=== PATIENT | male | born 1940 | race Caucasian/White ===

== ENCOUNTER 2017-02-07 00:20 | Observation (INO) | payer MEDICARE ==
[2017-02-07] MEDS ORDERED: Sodium Chloride 0.9% 1000 ML 1,000 ML IV SCH (00:45)
[2017-02-07] MEDS ORDERED: Nitrostat 0.4 MG (ED) SL ONE (00:45)
--- NOTE | 2017-02-07 00:52 | ERPHSYRPT ---
- History of Present Illness Time Seen by Provider: 02/07/17 00:45 Historian: patient Exam Limitations: clinical condition Patient Subjective Stated Complaint: pt states he woke up with lt side chest pain. denies radiation, nausea, sob, dizziness Triage Nursing Assessment: pt alert and oriented, asnwers questions approp. skin pnk warm and dry. respirations nonlabored with lungs cta. pt c/o pain in lt chest 11/27 began at 2330 while sleeping. heart rate 72, sinus rhythm on monitor. Physician History: PATIENT WITH HISTORY OF CORONARY ARTERY DISEASE, PREVIOUS CVA COMPLAINS OF LOWER STERNAL CHEST PAIN AFTER EATING AT 11PM, DENIES ASSOCIATED RADIATION TO NECK, JAW, ARMS OR BACK. DENIES FEVER, CHILLS, DYSPNEA OR COUGH. Timing/Duration: today Activities at Onset: none Quality: sharpness, stabbing Location: substernal Chest Pain Radiation: no radiation Severity of Pain-Max: moderate Severity of Pain-Current: moderate Modifying Factors: Improves With: nothing Associated Symptoms: denies symptoms Prior Chest Pain/Cardiac Workup: angina, heart attack Nitro Today/Relief: 0.4 mg x 2, provided by ED Aspirin Treatment Today: no aspirin today Allergies/Adverse Reactions: ether Allergy (Verified 02/07/17 00:41) BEE STING Adverse Reaction (Mild, Uncoded 02/07/17 00:41) Home Medications: Furosemide 40 mg [Lasix 40 MG] 40 mg PO DAILY 11/07/12 [History] Potassium Chloride 10 Meq Tab* [Klor Con 10 MEQ] 10 meq PO DAILY 11/07/12 [ History] Nitroglycerin 0.4 mg Tablet [Nitrostat 0.4 MG Tablet] 0.4 mg SL UD PRN 09/02 [History] Aspirin 325 mg PO DAILY 01/16/15 [History] Carvedilol 6.25 mg [Coreg 6.25 MG] 18.75 mg PO BID 01/16/15 [History] Lisinopril 5 mg [Zestril 5 MG] 20 mg PO DAILY 01/16/15 [History] Gabapentin [Neurontin] 100 mg PO TID 01/17/15 [History] Magnesium Oxide 400 mg [Mag-Ox 400] 400 mg PO DAILY 01/22/15 [History] Alprazolam 0.25 mg [xanAX 0.25 MG] 0.25 mg PO HS 03/29/15 [History] Simvastatin [Zocor] 5 mg PO DAILY 03/29/15 [History] Warfarin Sodium 2.5 mg [Coumadin 2.5 MG] 2.5 mg PO UD 03/29/15 [History] Warfarin Sodium 5 mg [Coumadin 5 MG] 5 mg PO UD 03/29/15 [History] Cetirizine HCl [Zyrtec] 10 mg PO DAILY 02/07/17 [History] Glimepiride 4 mg [Amaryl 4 mg] 4 mg PO DAILY 02/07/17 [History] Tamsulosin HCl 0.4 mg [Flomax 0.4 MG] 0.4 mg PO DAILY 02/07/17 [History] Hx Tetanus, Diphtheria Vaccination/Date Given: Yes Hx Influenza Vaccination/Date Given: Yes Hx Pneumococcal Vaccination/Date Given: Yes (2yrs ago) Immunizations Up to Date: Yes - Review of Systems Constitutional: No Fever, No Chills Eyes: No Symptoms Ears, Nose, & Throat: No Symptoms Respiratory: No Symptoms, No Cough, No Dyspnea Cardiac: Chest Pain, No Edema, No Syncope Abdominal/Gastrointestinal: No Symptoms, No Abdominal Pain, No Nausea, No Vomiting, No Diarrhea Genitourinary Symptoms: No Symptoms, No Dysuria Musculoskeletal: No Symptoms, No Back Pain, No Neck Pain Skin: No Symptoms, No Rash Neurological: No Dizziness, No Focal Weakness, No Sensory Changes Psychological: No Symptoms Endocrine: No Symptoms All Other Systems: Reviewed and Negative - Past Medical History Pertinent Past Medical History: Yes Neurological History: Stroke ENT History: No Pertinent History Cardiac History: Arrhythmia, Coronary Artery Disease, Congestive Heart Failure, Myocardial Infarction ([place]), Hypertension Respiratory History: Sleep Apnea, Other Endocrine Medical History: Diabetes Type II Musculoskeletal History: Other GI Medical History: No Pertinent History History: Other Psycho-Social History: No Pertinent History Male Reproductive Disorders: No Pertinent History Other Medical History: kidney stones - Past Surgical History Past Surgical History: Yes Neuro Surgical History: No Pertinent History Cardiac: Cardiac Catheterization, Pacemaker, Internal Defibrillator Respiratory: Chest Surgery Gastrointestinal: No Pertinent History Genitourinary: Kidney Surgery Musculoskeletal: Orthopedic Surgery Male Surgical History: No Pertinent History Other Surgical History: 2 knee scopes right, T&A - Social History Smoking Status: Former smoker How long have you smoked: 20yrs Exposure to second hand smoke: No Drug Use: none Patient Lives Alone: No - Nursing Vital Signs Nursing Vital Signs: Initial Vital Signs Temperature 97.6 F Temperature Source Oral Pulse Rate [] 74 Pulse Rate 71 Respiratory Rate 18 Blood Pressure [] 127/72 Pain Intensity 5 - Physical Exam General Appearance: no apparent distress, alert Eye Exam: PERRL/EOMI, eyes nml inspection Ears, Nose, Throat Exam: normal ENT inspection, moist mucous membranes Neck Exam: normal inspection, non-tender, supple, full range of motion Respiratory Exam: normal breath sounds, lungs clear, No respiratory distress Cardiovascular Exam: regular rate/rhythm, normal heart sounds Gastrointestinal/Abdomen Exam: soft, normal bowel sounds, No tenderness, No mass Back Exam: normal inspection, No CVA tenderness, No vertebral tenderness Extremity Exam: normal inspection, normal range of motion Neurologic Exam: alert, oriented x 3, cooperative, normal mood/affect, sensation nml, No motor deficits Skin Exam: normal color, warm, dry SpO2 Interpretation: normal SpO2: 98 Oxygen Delivery: Room Air - Course EKG Interpreted by Me: RATE, Sinus Rhythm, 1st degree AV Block - Radiology Exams Chest X-ray Interpretation: Reviewed by me, Negative (LEFT HEMITHORAX PACEMAKER) Ordered Tests: Active Orders 24 hr Category Date Time Status Up With Assistance ROUTINE Activity 02/07/17 03:42 Ordered Accucheck ACHS Care 02/07/17 03:41 Ordered Admission/Status Order ROUTINE Care 02/07/17 03:41 Ordered Call Admit Doctor for Orders ROUTINE Care 02/07/17 03:41 Ordered [employer] Sharpshooter STAT Care 02/07/17 00:45 Active Code Status Order ROUTINE Care 02/07/17 03:41 Ordered EKG-ER Only STAT Care 02/07/17 00:45 Active IV Care Q6H Care 02/07/17 03:41 Ordered IV Insertion STAT Care 02/07/17 00:33 Active Implement Chest Pain Pathway ROUTINE Care 02/07/17 03:41 Ordered Oxygen-ED Only NASAL CANNULA 2 lpm Care 02/07/17 00:45 Active Jovi Hose, Apply ROUTINE Care 02/07/17 03:41 Ordered Telemetry ROUTINE Care 02/07/17 03:41 Ordered Vital Signs Q4H Care 02/07/17 03:41 Ordered Weight,Daily 0600 Care 02/07/17 03:41 Ordered 1800 Calorie ADA Diet 02/07/17 Breakfast Ordered CHEST 1 VIEW (PORTABLE) Stat Exams 02/07/17 00:45 Taken CBC W DIFF Stat Lab 02/07/17 01:00 Completed CMP Stat Lab 02/07/17 01:00 Completed LIPID PROFILE AM.LAB Lab 02/07/17 04:00 Ordered PROTIME WITH INR Stat Lab 02/07/17 01:00 Completed TROPONIN Q3H Lab 02/07/17 01:00 Completed TROPONIN Q3H Lab 02/07/17 03:45 Ordered TROPONIN Q3H Lab 02/07/17 06:45 Ordered TROPONIN Q3H Lab 02/07/17 09:45 Ordered TROPONIN Q3H Lab 02/07/17 12:45 Ordered EKG Q8HX2,QAMX3,PRN RT 02/07/17 03:41 Ordered Pulse Oximetry Q4H RT 02/07/17 03:41 Ordered Transfer Order Routine Transfer 02/07/17 03:41 Ordered Medication Summary Generic Name Dose Route Start Last Admin Trade Name Freq PRN Reason Stop Dose Admin Sodium Chloride 1,000 mls @ 50 mls/hr 02/07/17 00:45 02/07/17 01:03 Sodium Chloride 0.9% 1000 Ml IV 03/09/17 00:44 50 mls/hr .Q20H SCOTTY Administration Discontinued Medications Generic Name Dose Route Start Last Admin Trade Name Freq PRN Reason Stop Dose Admin Aspirin 324 mg 02/07/17 00:57 02/07/17 01:03 Baby Aspirin 81 Mg Chew PO 02/07/17 00:58 324 mg STAT ONE Administration Nitroglycerin 0.4 mg 02/07/17 00:45 02/07/17 01:03 Nitrostat 0.4 Mg (Ed) SL 02/07/17 00:46 0.4 mg STAT ONE Administration Nitroglycerin 1 gm 02/07/17 02:01 02/07/17 02:18 Nitro-Bid 2% Ud Packets TOP 02/07/17 02:02 Not Given STAT ONE Nitroglycerin Confirm 02/07/17 02:05 Nitro-Bid 2% Ud Packets Administered 02/07/17 02:06 Dose 1 gm .ROUTE .STK-MED ONE Lab/Rad Data: Laboratory Result Diagrams 02/07/17 01:00 02/07/17 01:00 Laboratory Results 02/07/17 02/07/17 02/07/17 Range/Units 01:00 01:00 01:00 WBC 9.0 (4.0-10.5) K/mm3 RBC 4.51 (4.1-5.6) M/mm3 Hgb 14.8 (12.5-18.0) gm/dl Hct 42.9 (42-50) % MCV 95.1 (78-100) fl MCH 32.8 H (26-32) pg MCHC 34.5 (32-36) g/dl RDW 13.3 (11.5-14.0) % Plt Count 169 (150-450) K/mm3 MPV 10.3 H (6-9.5) fl Gran % 51.2 (36.0-66.0) % Lymphocytes % 34.1 (24.0-44.0) % Monocytes % 9.4 (0.0-12.0) % Eosinophils % 5.0 (0.00-5.0) % Basophils % 0.3 (0.0-0.4) % Basophils # 0.03 (0-0.4) INR 1.69 (0.8-3.0) Sodium 137 (136-145) mEq/L Potassium 4.7 (3.5-5.1) mEq/L Chloride 100 (98-107) mEq/L Carbon Dioxide 26.5 (21-32) mEq/L Anion Gap 14.7 (5-15) MEQ/L BUN 30 H (9-20) mg/dL Creatinine 1.45 H (0.55-1.30) mg/dl Estimated GFR 51 ML/MIN Glucose 145 H (70-110) MG/DL Calcium 9.4 (8.5-10.1) mg/dL Total Bilirubin 0.60 (0.2-1.0) mg/dL AST 17 (15-37) U/L ALT 20 (12-78) U/L Alkaline Phosphatase 50 (46-116) U/L Troponin I (0.000-0.056) ng/ml Serum Total Protein 7.1 (6.4-8.2) gm/dL Albumin 3.7 (3.4-5.0) g/dL 02/07/17 Range/Units 01:00 WBC (4.0-10.5) K/mm3 RBC (4.1-5.6) M/mm3 Hgb (12.5-18.0) gm/dl Hct (42-50) % MCV (78-100) fl MCH (26-32) pg MCHC (32-36) g/dl RDW (11.5-14.0) % Plt Count (150-450) K/mm3 MPV (6-9.5) fl Gran % (36.0-66.0) % Lymphocytes % (24.0-44.0) % Monocytes % (0.0-12.0) % Eosinophils % (0.00-5.0) % Basophils % (0.0-0.4) % Basophils # (0-0.4) INR (0.8-3.0) Sodium (136-145) mEq/L Potassium (3.5-5.1) mEq/L Chloride (98-107) mEq/L Carbon Dioxide (21-32) mEq/L Anion Gap (5-15) MEQ/L BUN (9-20) mg/dL Creatinine (0.55-1.30) mg/dl Estimated GFR ML/MIN Glucose (70-110) MG/DL Calcium (8.5-10.1) mg/dL Total Bilirubin (0.2-1.0) mg/dL AST (15-37) U/L ALT (12-78) U/L Alkaline Phosphatase (46-116) U/L Troponin I 0.024 (0.000-0.056) ng/ml Serum Total Protein (6.4-8.2) gm/dL Albumin (3.4-5.0) g/dL - Progress Progress Note: 02/07/17 03:33 PATIENT RESOLVED AFTER NTG 0.4MG SL Discussed with DrStacia: Johnny (DISCUSSED WITH DR ASCENCIO AT 0330 FOR OBSERVATION) - Departure Time of Disposition: 03:40 Departure Disposition: Observation Clinical Impression: ACUTE CHEST PAIN Condition: Stable Critical Care Time: No Referrals: EVE HER MD [Primary Care Provider] -
[2017-02-07] MEDS ORDERED: BABY ASPIRIN 81 MG CHEW PO ONE (00:57)
[2017-02-07 01:25] LABS: BASOPHIL % 0.3 % (0.0-0.4); Granulocytes % 51.2 % (36.0-66.0); Lymphocytes % 34.1 % (24.0-44.0); Mean Cell Volume 95.1 fl (78-100); Mean Corpuscular Hemoglobin 32.8 pg (26-32); Mean Platelet Volume 10.3 fl (6-9.5); Monocytes % 9.4 % (0.0-12.0); Platelet Count 169 K/mm3 (150-450); Red Blood Count 4.51 M/mm3 (4.1-5.6); Red Cell Distribution Width 13.3 % (11.5-14.0)
[2017-02-07 01:36] LABS: INR 1.69 (0.8-3.0); PROTIME 19.2 SECONDS (8.83-12.87)
[2017-02-07 01:49] LABS: ALBUMIN 3.7 g/dL (3.4-5.0); ANION GAP 14.7 MEQ/L (5-15); BILIRUBIN,TOTAL 0.6 mg/dL (0.2-1.0); Carbon Dioxide 26.5 mEq/L (21-32); Potassium 4.7 mEq/L (3.5-5.1); Total Protein 7.1 gm/dL (6.4-8.2)
[2017-02-07] MEDS ORDERED: NITRO-BID 2% UD PACKETS TOP ONE (02:01)
[2017-02-07] MEDS ORDERED: NITRO-BID 2% UD PACKETS ONE (02:05)
[2017-02-07] MEDS ORDERED: TYLENOL 325 MG PO PRN (03:41)
[2017-02-07] MEDS ORDERED: MORPHINE SULFATE 2 MG INJ IV PRN (03:41)
[2017-02-07] MEDS ORDERED: MILK OF MAGNESIA 30 ML PO PRN (03:41)
[2017-02-07] MEDS ORDERED: Nitrostat 0.4 MG Tablet SL PRN (03:41)
[2017-02-07] MEDS ORDERED: Zofran 4 MG/2 ML VIAL IV PRN (03:41)
[2017-02-07] MEDS ORDERED: MAALOX ES 30 ML UNIT DOSE PO PRN (03:41)
[2017-02-07] MEDS ORDERED: Senokot-S Tablet PO PRN (03:41)
[2017-02-07] MEDS: Ecotrin 325 MG PO SCH ×2 (04:23→09:53)
[2017-02-07] MEDS ORDERED: NITRO-BID 2% UD PACKETS TOP SCH (06:00)
--- NOTE | 2017-02-07 07:54 | PCM.SSS ---
History of Present Illness - Chief Complaint Chief Complaint: chest pain History of Present Illness: Mr.BARISH MILLER is a 76 year old male with a history of CVA and CAD, he went to bed last night and awoke shortly later with epigastric pain. He vomited x 1 and later pain tara in to the chest. He had no shortness of breath or diaphoresis, his pain resolved shortly after arrival to the ER and had been pain-free overnight. Troponins have been negative so far and EKG shows no acute changes. - Review of Systems Constitutional: No Fever, No Chills Respiratory: No Cough, No Short Of Breath Cardiac: Chest Pain Abdominal/Gastrointestinal: Abdominal Pain, Nausea, Vomiting Skin: No Rash Neurological: No Dizziness, No Focal Weakness, No Sensory Changes All Other Systems: Reviewed and Negative Medications & Allergies Home Medications: Home Medication List Furosemide 40 mg [Lasix 40 MG] 40 mg PO DAILY 11/07/12 [History Confirmed 02/07/17] Potassium Chloride 10 Meq Tab* [Klor Con 10 MEQ] 10 meq PO DAILY 11/07/12 [ History Confirmed 02/07/17] Nitroglycerin 0.4 mg Tablet [Nitrostat 0.4 MG Tablet] 0.4 mg SL UD PRN 09/02 [History Confirmed 02/07/17] Aspirin 325 mg PO DAILY 01/16/15 [History Confirmed 02/07/17] Carvedilol 6.25 mg [Coreg 6.25 MG] 18.75 mg PO BID 01/16/15 [History Confirmed 02/07/17] Lisinopril 5 mg [Zestril 5 MG] 20 mg PO DAILY 01/16/15 [History Confirmed 02/07/17] Magnesium Oxide 400 mg [Mag-Ox 400] 400 mg PO DAILY 01/22/15 [History Confirmed 02/07/17] Alprazolam 0.25 mg [xanAX 0.25 MG] 0.25 mg PO HS 03/29/15 [History Confirmed 02/07/17] Simvastatin [Zocor] 5 mg PO DAILY 03/29/15 [History Confirmed 02/07/17] Warfarin Sodium 2.5 mg [Coumadin 2.5 MG] 2.5 mg PO UD 03/29/15 [History Confirmed 02/07/17] Warfarin Sodium 5 mg [Coumadin 5 MG] 5 mg PO UD 03/29/15 [History Confirmed 02/07/17] Cetirizine HCl [Zyrtec] 10 mg PO DAILY 02/07/17 [History Confirmed 02/07/17] Gabapentin 100 mg PO TID 02/07/17 [History Confirmed 02/07/17] Glimepiride 4 mg [Amaryl 4 mg] 4 mg PO DAILY 02/07/17 [History Confirmed 02/07/17] Metformin HCl 500 mg [Glucophage 500 MG] 1,000 mg PO BID 02/07/17 [ History Confirmed 02/07/17] Tamsulosin HCl 0.4 mg [Flomax 0.4 MG] 0.4 mg PO DAILY 02/07/17 [History Confirmed 02/07/17] Warfarin Sodium 2.5 mg [Coumadin 2.5 MG] 7.5 mg PO COU #0 tablet 02/07/17 [Rx] Warfarin Sodium 5 mg [Coumadin 5 MG] 7.5 mg PO COU #0 tablet 02/07/17 [Rx] Allergies/Adverse Reactions: Allergies Allergy/AdvReac Type Severity Reaction Status Date / Time ether Allergy Verified 02/07/17 00:41 BEE STING AdvReac Mild Uncoded 02/07/17 00:41 - Past Medical History Past Medical History: Yes Neurological History: Stroke ENT History: No Pertinent History Cardiac History: Arrhythmia, Coronary Artery Disease, Congestive Heart Failure, Myocardial Infarction ([place]), Hypertension Respiratory History: Sleep Apnea, Other Endocrine Medical History: Diabetes Type II Musculoskelatal History: Other GI Medical History: No Pertinent History History: Other Pyscho-Social History: No Pertinent History Male Reproductive Disorders: No Pertinent History Comment: kidney stones - Past Surgical History Past Surgical History: Yes Neuro Surgical History: No Pertinent History Cardiac History: Cardiac Catheterization, Pacemaker, Internal Defibrillator Respiratory Surgery: Chest Surgery GI Surgical History: No Pertinent History Genitourinary Surgical Hx: Kidney Surgery Musculskeletal Surgical Hx: Orthopedic Surgery Male Surgical History: No Pertinent History Other Surgical History: 2 knee scopes right, T&A - Social History Smoking Status: Former smoker How long have you smoked: 20yrs Exposure to second hand smoke: No Alcohol: Occasionally Drug Use: none - Physical Exam Vital Signs: Vital Signs - 24 hr Temp Pulse Pulse Resp BP Pulse Ox 02/07/17 07:32 97.4 F 71 20 145/76 97 02/07/17 07:11 97 02/07/17 04:58 97.9 F 74 18 135/72 98 02/07/17 04:40 74 18 98 02/07/17 04:30 97.9 F 70 19 135/72 98 02/07/17 03:48 98 02/07/17 03:43 71 18 127/72 98 02/07/17 02:19 70 18 105/70 02/07/17 01:37 70 19 110/69 97 02/07/17 01:06 75 18 126/81 98 02/07/17 00:32 74 02/07/17 00:30 97.6 F 70 18 154/94 98 Oxygen-Last 24 hours O2 Percentage 2 Liters = 28% O2 Percentage 2 Liters = 28% O2 Percentage 2 Liters = 28% General Appearance: no apparent distress, alert Respiratory Exam: normal breath sounds, lungs clear, No respiratory distress Cardiovascular Exam: regular rate/rhythm, normal heart sounds, normal peripheral pulses Gastrointestinal/Abdomen Exam: soft, normal bowel sounds, No tenderness, No mass Extremity Exam: normal inspection, normal range of motion, pelvis stable Skin Exam: normal color, warm, dry, No rash Results - Labs Lab/Micro Results: Lab Results-Last 24 Hours 02/07/17 Range/Units 06:50 Troponin I 0.042 (0.000-0.056) ng/ml - Other Procedures and Tests Respiratory Therapy 02/07/17 04:17 EKG Q8HX2,QAMX3,PRN 02/07/17 04:43 Oxygen NASAL CANNULA 2 lpm 02/07/17 08:24 EKG ROUTINE 02/08/17 05:00 EKG DAILY 02/09/17 05:00 EKG DAILY 02/10/17 05:00 EKG DAILY Assessment/Plan (1) Chest pain Current Visit: Yes Status: Acute Assessment & Plan: will r/o [place], chest pain appears to be GI related, ate sausages before going to bed. discussed not eating late etc Code(s): R07.9 - CHEST PAIN, UNSPECIFIED (2) Anticoagulated on warfarin Current Visit: No Status: Acute Code(s): Z79.01 - CHILDREN LIBR[employer]IAN (CURRENT) USE OF ANTICOAGULANTS (3) Diabetes type 2, controlled Current Visit: No Status: Chronic Code(s): E11.9 - TYPE 2 DIABETES MELLITUS WITHOUT COMPLICATIONS Hospital Summary - Vitals & Intake/Output Vital Signs: Vital Signs Temperature 97.4 F 02/07/17 07:32 Pulse Rate 71 02/07/17 07:32 Respiratory Rate 20 02/07/17 07:32 Blood Pressure 145/76 02/07/17 07:32 O2 Sat by Pulse Oximetry 97 02/07/17 07:32 Oxygen-Last Documented O2 Percentage 2 Liters = 28% Intake & Output: Intake & Output 02/04/17 02/05/17 02/06/17 02/07/17 11:59 11:59 11:59 11:59 Weight 92.215 kg - Lab Result Diagrams: 02/07/17 01:00 02/07/17 01:00 Lab Results-Last 24 Hrs: Lab Results-Last 24 Hours 02/07/17 Range/Units 06:50 Troponin I 0.042 (0.000-0.056) ng/ml - Procedures and Test Procedures and Tests throughout Hospitalization: Therapy Orders & Screens 02/07/17 03:41 EKG Q8HX2,QAMX3,PRN Comment: 02/07/17 04:17 EKG Q8HX2,QAMX3,PRN Comment: Diagnosis: CHEST PAIN 02/07/17 04:43 Oxygen NASAL CANNULA 2 lpm Comment: PER CHEST PAIN PATHWAY Diagnosis: chest pain 02/07/17 08:24 EKG ROUTINE Comment: Diagnosis: chest pain 02/08/17 05:00 EKG DAILY Comment: Diagnosis: chest pain 02/09/17 05:00 EKG DAILY Comment: Diagnosis: chest pain 02/10/17 05:00 EKG DAILY Comment: Diagnosis: chest pain - Discharge Disposition: Home, Self-Care Condition: Stable Prescriptions: New Warfarin Sodium 2.5 mg [Coumadin 2.5 MG] 7.5 mg PO COU #0 tablet Warfarin Sodium 5 mg [Coumadin 5 MG] 7.5 mg PO COU #0 tablet Continue Potassium Chloride 10 Meq Tab* [Klor Con 10 MEQ] 10 meq PO DAILY Furosemide 40 mg [Lasix 40 MG] 40 mg PO DAILY Nitroglycerin 0.4 mg Tablet [Nitrostat 0.4 MG Tablet] 0.4 mg SL UD PRN PRN Reason: Chest Pain Lisinopril 5 mg [Zestril 5 MG] 20 mg PO DAILY Carvedilol 6.25 mg [Coreg 6.25 MG] 18.75 mg PO BID Aspirin 325 mg PO DAILY Magnesium Oxide 400 mg [Mag-Ox 400] 400 mg PO DAILY Alprazolam 0.25 mg [xanAX 0.25 MG] 0.25 mg PO HS Warfarin Sodium 5 mg [Coumadin 5 MG] 5 mg PO UD Warfarin Sodium 2.5 mg [Coumadin 2.5 MG] 2.5 mg PO UD Simvastatin [Zocor] 5 mg PO DAILY Glimepiride 4 mg [Amaryl 4 mg] 4 mg PO DAILY Cetirizine HCl [Zyrtec] 10 mg PO DAILY Tamsulosin HCl 0.4 mg [Flomax 0.4 MG] 0.4 mg PO DAILY Metformin HCl 500 mg [Glucophage 500 MG] 1,000 mg PO BID Gabapentin 100 mg PO TID Discontinued Tamsulosin HCl 0.4 mg [Flomax 0.4 MG] 0.4 mg PO DAILY Follow up with: EVE HER MD [Primary Care Provider] -
[2017-02-07] MEDS ORDERED: AMARYL 4 MG PO SCH (08:00)
[2017-02-07] MEDS ORDERED: MAG-OX 400 PO SCH (10:00)
[2017-02-07] MEDS ORDERED: Klor Con 10 MEQ PO SCH (10:00)
[2017-02-07] MEDS ORDERED: Lasix 40 MG PO SCH (10:00)
[2017-02-07] MEDS ORDERED: Flomax 0.4 MG PO SCH (10:00)
[2017-02-07] MEDS ORDERED: Zestril 20 MG PO SCH (10:00)
[2017-02-07] MEDS ORDERED: Coreg 6.25 MG PO SCH (10:00)
[2017-02-07] MEDS ORDERED: Neurontin 100 MG PO SCH (10:00)
[2017-02-07 11:47] VITALS: PULSE 70
[2017-02-07 14:32] VITALS: O2SAT 96
[2017-02-07 14:46] VITALS: BP 120/58
--- NOTE | 2017-02-07 14:55 | XRAY ---
Exam: AP upright portable chest film from 0103 hrs. on 02/07/2017. Comparison: None. Indication: Cough, chest pain. Findings: The film was obtained in a mildly lordotic projection. The transverse heart size appears within normal limits for this AP portable technique. The level of inspiration is slightly less than average. A left-sided cardiac pacemaker/AICD is noted with [address], one lead tip in the projection of the right atrium and the other lead tip in the projection of the apex of the right ventricle. The dandy and mediastinal structures appear unremarkable. There is a suggestion of a tiny oblique strand of plate atelectasis or scarring near the projection of the left cardiophrenic angle. No air space infiltrates, vascular congestion, pneumothorax, or pleural fluid is seen. No acute osseous process is seen. Impression: 1. I believe there is some minimal focal linear scarring or plate atelectasis at the left lung base near the left cardiophrenic angle. 2. Otherwise, no infiltrates, heart failure, or other acute cardiopulmonary disease is seen. 3. Left-sided cardiac pacemaker/AICD is seen.
[2017-02-07] MEDS ORDERED: Coumadin 5 MG PO SCH (18:00)
[2017-02-07] MEDS ORDERED: Coumadin 5 MG*** 5 MG, Coumadin 2.5 MG*** 2.5 MG PO SCH ×2 (18:00)
[2017-02-07] MEDS ORDERED: xanAX 0.5 MG PO SCH (22:00)
[2017-02-07] MEDS ORDERED: Zocor 10MG PO SCH (22:00)
[2017-02-08] MEDS ORDERED: NON-FORMULARY ITEM (Simvastatin [Zocor] 5 MG) PO SCH (10:00)
[2017-02-08] MEDS ORDERED: Coumadin 2.5 MG PO SCH (18:00)
== END 2017-02-07 14:55 | disposition home or self-care (01) ==
LOC: ED 00:20 → MED SURG 04:01
PROVIDERS: ADMIT Family Medicine; ATTEND Family Medicine
DX: R07.9 Chest pain, unspecified (principal); Z79.01 Long term (current) use of anticoagulants; E11.9 Type 2 diabetes mellitus without complications; Z79.899 Other long term (current) drug therapy; I25.10 Atherosclerotic heart disease of native coronary artery without angina pectoris; I50.9 Heart failure, unspecified; Z86.73 Personal history of transient ischemic attack (TIA), and cerebral infarction without residual deficits; Z95.810 Presence of automatic (implantable) cardiac defibrillator
CPT/HCPCS: 36000; 36415; 71010; 80053; 80061; 82962; 83721; 84484; 85025; 85610; 93005; 93041; 93268; 94760; 96360; 96361; 99285; G0378; A9270-GY

== ENCOUNTER 2017-07-18 09:44 | Observation (INO) | payer MEDICARE ==
[2017-07-18] MEDS ORDERED: Adacel Vial IM ONE ×2 (10:07→10:26)
--- NOTE | 2017-07-18 10:15 | ERPHSYRPT ---
- History of Present Illness Time Seen by Provider: 07/18/17 09:52 Source: patient, family Exam Limitations: no limitations Patient Subjective Stated Complaint: pt here for a fall yesterday,weakness, and unsteady gait, fell at 0700 states he thinks he tripped on a basket on the stairs. no loc. Triage Nursing Assessment: pt walked in, slow but steady gait. resp easy, chest clear, bb shot packer equal and strong, follows commands well, mouth drooping to left side. Physician History: mild ache pain after trip and fall yesterday on steps, no loc, no neck pain but since the fall, he is slurring speech and unsteady gait, pt refused pain med, pt hx cva (2014) and pacer and dm, hx pacer Allergies/Adverse Reactions: ether Allergy (Verified 07/18/17 10:00) BEE STING Adverse Reaction (Mild, Uncoded 07/18/17 10:00) Home Medications: Furosemide 40 mg [Lasix 40 MG] 40 mg PO DAILY 11/07/12 [History] Potassium Chloride 10 Meq Tab* [Klor Con 10 MEQ] 10 meq PO DAILY 11/07/12 [ History] Nitroglycerin 0.4 mg Tablet [Nitrostat 0.4 MG Tablet] 0.4 mg SL UD PRN 09/02 [History] Aspirin 325 mg PO DAILY 01/16/15 [History] Carvedilol 6.25 mg [Coreg 6.25 MG] 18.75 mg PO BID 01/16/15 [History] Lisinopril 5 mg [Zestril 5 MG] 20 mg PO DAILY 01/16/15 [History] Magnesium Oxide 400 mg [Mag-Ox 400] 400 mg PO DAILY 01/22/15 [History] Alprazolam 0.25 mg [xanAX 0.25 MG] 0.25 mg PO HS 03/29/15 [History] Simvastatin [Zocor] 5 mg PO DAILY 03/29/15 [History] Cetirizine HCl [Zyrtec] 10 mg PO DAILY 02/07/17 [History] Gabapentin 100 mg PO TID 02/07/17 [History] Glimepiride 4 mg [Amaryl 4 mg] 4 mg PO DAILY 02/07/17 [History] Metformin HCl 500 mg [Glucophage 500 MG] 1,000 mg PO BID 02/07/17 [History ] Tamsulosin HCl 0.4 mg [Flomax 0.4 MG] 0.4 mg PO DAILY 02/07/17 [History] Warfarin Sodium 2.5 mg [Coumadin 2.5 MG] 2.5 mg PO WEEKLY 07/18/17 [ History] Hx Tetanus, Diphtheria Vaccination/Date Given: Yes Hx Influenza Vaccination/Date Given: Yes Hx Pneumococcal Vaccination/Date Given: Yes (2015) - Review of Systems Constitutional: No Fever Eyes: No Symptoms Ears, Nose, & Throat: No Symptoms Respiratory: No Symptoms Cardiac: No Symptoms Abdominal/Gastrointestinal: No Symptoms Musculoskeletal: Fall, Injury, No Back Pain, No Neck Pain, No Deformity Skin: Other (abrasion right elbow) Neurological: Speech Changes, No Focal Weakness, No Headache Psychological: No Symptoms - Past Medical History Pertinent Past Medical History: Yes Neurological History: Stroke ENT History: No Pertinent History Cardiac History: Arrhythmia, Coronary Artery Disease, Congestive Heart Failure, Myocardial Infarction ([place]), Hypertension Respiratory History: Sleep Apnea, Other Endocrine Medical History: Diabetes Type II Musculoskeletal History: Other GI Medical History: No Pertinent History History: Other Psycho-Social History: No Pertinent History Male Reproductive Disorders: No Pertinent History Other Medical History: kidney stones - Past Surgical History Past Surgical History: Yes Neuro Surgical History: No Pertinent History Cardiac: Cardiac Catheterization, Pacemaker, Internal Defibrillator Respiratory: Chest Surgery Gastrointestinal: No Pertinent History Genitourinary: Kidney Surgery Musculoskeletal: Orthopedic Surgery Male Surgical History: No Pertinent History Other Surgical History: 2 knee scopes right, T&A - Social History Smoking Status: Former smoker How long have you smoked: 20yrs Exposure to second hand smoke: No Drug Use: none Patient Lives Alone: No - Nursing Vital Signs Nursing Vital Signs: Initial Vital Signs Temperature 97.0 F 07/18/17 09:50 Pulse Rate 75 07/18/17 09:50 Respiratory Rate 22 07/18/17 09:50 Blood Pressure 127/65 07/18/17 09:50 O2 Sat by Pulse Oximetry 100 07/18/17 09:50 Pain Scale Pain Intensity 0 - [place] Coma Score Best Eye Response ([place]): (4) open spontaneously Best Verbal Response (Leanne): (5) oriented Best Motor Response ([place]): (6) obeys commands Leanne Total: 15 - Physical Exam General Appearance: no apparent distress Head Injury: no evidence of injury Eye Exam: PERRL/EOMI ENT Exam: airway nml Neck Exam: supple, full range of motion, No tenderness Respiratory/Chest Exam: chest tenderness Cardiovascular Exam: regular rate/rhythm Gastrointestinal Exam: soft, No tenderness Back Exam: No vertebral tenderness Extremity Exam: other (tender right hip and deltoid, bb shot packer equal, celeste, sen and pulses intact) Neurologic Exam: alert, oriented x 3, cooperative, normal mood/affect, slurred speech, other (cn 3 to 10 grossly intact) Skin Exam: other (abrasion right elbow) SpO2 Interpretation: normal SpO2: 100 Oxygen Delivery: Room Air - Course Nursing assessment & vital signs reviewed: Yes EKG Interpreted by Me: Other (atrial 71 similar 01/2017) - Radiology Exams Chest X-ray Interpretation: Discussed w/ radiologist, Negative - CT Exams Head CT Interpretation: Discussed w/radiologist, Other (nap) Ordered Tests: Active Orders 24 hr Category Date Time Status Cuff Turner STAT Care 07/18/17 10:07 Active EKG-ER Only STAT Care 07/18/17 10:06 Active IV Insertion STAT Care 07/18/17 10:06 Active ELBOW (MINIMUM 3 VIEWS) Stat Exams 07/18/17 Completed HEAD WITHOUT CONTRAST [CT] Stat Exams 07/18/17 10:08 Completed HIP UNI (2V) INCL PEL IF DONE Stat Exams 07/18/17 Completed SHOULDER Stat Exams 07/18/17 Completed CBC W DIFF Stat Lab 07/18/17 10:22 Completed CMP Stat Lab 07/18/17 10:22 Completed Manual Differential NC Stat Lab 07/18/17 10:22 Completed NT PRO BNP Stat Lab 07/18/17 10:22 Completed PROTIME WITH INR Stat Lab 07/18/17 10:22 Completed TROPONIN Q3H Lab 07/18/17 10:22 Completed TROPONIN Q3H Lab 07/18/17 13:20 Completed TROPONIN Q3H Lab 07/18/17 16:15 Ordered TROPONIN Q3H Lab 07/18/17 19:15 Ordered TROPONIN Q3H Lab 07/18/17 22:15 Ordered Transfer Order Routine Transfer 07/18/17 Ordered Medication Summary Discontinued Medications Generic Name Dose Route Start Last Admin Trade Name Tavo PRN Reason Stop Dose Admin Aspirin 324 mg 07/18/17 14:22 Baby Aspirin 81 Mg Chew PO 07/18/17 14:23 STAT ONE Diphtheria/Tetanus/Acell Pertussis 0.5 ml 07/18/17 10:07 07/18/17 11:05 Adacel Vial IM 07/18/17 10:08 0.5 ml .ONCE ONE Administration Diphtheria/Tetanus/Acell Pertussis Confirm 07/18/17 10:26 Adacel Vial Administered 07/18/17 10:27 Dose 0.5 ml IM .STK-MED ONE Lab/Rad Data: Laboratory Result Diagrams 07/18/17 10:22 07/18/17 10:22 Laboratory Results 07/18/17 07/18/17 07/18/17 Range/Units 13:20 10:22 10:22 WBC (4.0-10.5) K/mm3 RBC (4.1-5.6) M/mm3 Hgb (12.5-18.0) gm/dl Hct (42-50) % MCV (78-100) fl MCH (26-32) pg MCHC (32-36) g/dl RDW (11.5-14.0) % Plt Count (150-450) K/mm3 MPV (6-9.5) fl Gran % (36.0-66.0) % Lymphocytes % (24.0-44.0) % Monocytes % (0.0-12.0) % Eosinophils % (0.00-5.0) % Basophils % (0.0-0.4) % Segmented Neutrophils (36.-66.) % Band Neutrophils (0.0-2.0) % Lymphocytes (Manual) (24-44) % Monocytes (Manual) (0.0-12.0) % Basophils # (0-0.4) Metamyelocytes % Differential Comment Platelet Estimate (NORMAL) INR 2.08 (0.8-3.0) Sodium (136-145) mEq/L Potassium (3.5-5.1) mEq/L Chloride (98-107) mEq/L Carbon Dioxide (21-32) mEq/L Anion Gap (5-15) MEQ/L BUN (9-20) mg/dL Creatinine (0.55-1.30) mg/dl Estimated GFR ML/MIN Glucose (70-110) MG/DL Calcium (8.5-10.1) mg/dL Total Bilirubin (0.2-1.0) mg/dL AST (15-37) U/L ALT (12-78) U/L Alkaline Phosphatase (46-116) U/L Troponin I < 0.017 < 0.017 (0.000-0.056) ng/ml NT-Pro-B Natriuret Pep (0-125) pg/ml Serum Total Protein (6.4-8.2) gm/dL Albumin (3.4-5.0) g/dL 07/18/17 07/18/17 Range/Units 10:22 10:22 WBC 13.9 H (4.0-10.5) K/mm3 RBC 4.83 (4.1-5.6) M/mm3 Hgb 15.2 (12.5-18.0) gm/dl Hct 44.7 (42-50) % MCV 92.5 (78-100) fl MCH 31.5 (26-32) pg MCHC 34.0 (32-36) g/dl RDW 13.4 (11.5-14.0) % Plt Count 171 (150-450) K/mm3 MPV 10.0 H (6-9.5) fl Gran % 77.4 H (36.0-66.0) % Lymphocytes % 13.7 L (24.0-44.0) % Monocytes % 7.5 (0.0-12.0) % Eosinophils % 1.3 (0.00-5.0) % Basophils % 0.1 (0.0-0.4) % Segmented Neutrophils 80 H (36.-66.) % Band Neutrophils 1 (0.0-2.0) % Lymphocytes (Manual) 13 L (24-44) % Monocytes (Manual) 5 (0.0-12.0) % Basophils # 0.02 (0-0.4) Metamyelocytes 1 % Differential Comment NORMAL Platelet Estimate NORMAL (NORMAL) INR (0.8-3.0) Sodium 135 L (136-145) mEq/L Potassium 5.4 H (3.5-5.1) mEq/L Chloride 101 (98-107) mEq/L Carbon Dioxide 25.2 (21-32) mEq/L Anion Gap 14.0 (5-15) MEQ/L BUN 31 H (9-20) mg/dL Creatinine 1.33 H (0.55-1.30) mg/dl Estimated GFR 56 ML/MIN Glucose 162 H (70-110) MG/DL Calcium 9.1 (8.5-10.1) mg/dL Total Bilirubin 1.10 H (0.2-1.0) mg/dL AST 11 L (15-37) U/L ALT 23 (12-78) U/L Alkaline Phosphatase 53 (46-116) U/L Troponin I (0.000-0.056) ng/ml NT-Pro-B Natriuret Pep 2603 H (0-125) pg/ml Serum Total Protein 6.9 (6.4-8.2) gm/dL Albumin 3.3 L (3.4-5.0) g/dL - Progress Progress: unchanged Discussed with : Jesus Alberto Will see patient in: hospital (observation) Counseled pt/family regarding: lab results, diagnosis, rad results - Departure Time of Disposition: 14:27 Departure Disposition: Observation Clinical Impression: TIA (transient ischemic attack) Qualifiers: Transient cerebral ischemia type: unspecified Qualified Code(s): G45.9 - Transient cerebral ischemic attack, unspecified Condition: Stable Critical Care Time: No Referrals: EVE HER MD [Primary Care Provider] -
[2017-07-18 10:34] LABS: BASOPHIL % 0.1 % (0.0-0.4); Eosinophil % 1.3 % (0.00-5.0); Granulocytes % 77.4 % (36.0-66.0); Lymphocytes % 13.7 % (24.0-44.0); Mean Cell Volume 92.5 fl (78-100); Mean Corpuscular Hemoglobin 31.5 pg (26-32); Monocytes % 7.5 % (0.0-12.0); Platelet Count 171 K/mm3 (150-450); Red Blood Count 4.83 M/mm3 (4.1-5.6); Red Cell Distribution Width 13.4 % (11.5-14.0); White Blood Count 13.9 K/mm3 (4.0-10.5)
[2017-07-18 10:40] LABS: INR 2.08 (0.8-3.0); PROTIME 23.3 SECONDS (8.83-12.87)
--- NOTE | 2017-07-18 10:50 | XRAY ---
Indication: Dizziness. Status post fall. Multiple contiguous axial images obtained through the head without contrast. Comparison: March 13, 2016. Again age-appropriate global atrophy, mild periventricular degenerative micro-ischemia bilaterally, and remote right external capsule lacunar infarct. No acute intracranial hemorrhage, abnormal extra-axial fluid collection, or mass effect. Fourth ventricle is midline without hydrocephalus. Stable dolichoectatic and calcified distal left vertebral artery. Bony calvarium intact. Visualized paranasal sinuses and mastoid air cells are pneumatized and clear. Impression: Stable atrophy, degenerative micro-ischemia, and remote right external capsule lacunar infarct. No new/acute intracranial abnormalities. CTDI 51.37
[2017-07-18 10:53] LABS: ALBUMIN 3.3 g/dL (3.4-5.0); BILIRUBIN,TOTAL 1.1 mg/dL (0.2-1.0); Carbon Dioxide 25.2 mEq/L (21-32); Potassium 5.4 mEq/L (3.5-5.1); Total Protein 6.9 gm/dL (6.4-8.2)
[2017-07-18 10:58] LABS: BAND 1 % (0.0-2.0); Metamyelocyte 1 %; Platelet Estimate NORMAL (NORMAL); Total Cells Counted 100
--- NOTE | 2017-07-18 11:19 | XRAY ---
Indication: Pain following fall. Comparison: None 3 views of the right shoulder demonstrates mild osteopenia and mild AC degenerative arthropathy. No other bony, articular, or soft tissue abnormalities.
--- NOTE | 2017-07-18 11:21 | XRAY ---
Indication: Pain following fall. Comparison: None 3 views of the right elbow demonstrates mild osteopenia and tiny medial epicondyle spurring. No other bony, articular, or soft tissue abnormalities.
--- NOTE | 2017-07-18 11:24 | XRAY ---
Indication: Pain following fall. Comparison: None AP pelvis and 2 views of the right hip demonstrates mild osteopenia, small bilateral superior acetabular spurring, mild degenerative changes of the lower lumbar spine, and mild scattered vascular calcifications. No other bony, articular, or soft tissue abnormalities.
[2017-07-18] MEDS ORDERED: BABY ASPIRIN 81 MG CHEW PO ONE (14:22)
[2017-07-18] MEDS ORDERED: BABY ASPIRIN 81 MG CHEW ONE (14:34)
[2017-07-18] MEDS ORDERED: TYLENOL 325 MG PO PRN (15:06)
[2017-07-18] MEDS ORDERED: NovoLIN R SQ PRN (15:06)
[2017-07-18] MEDS ORDERED: Nitrostat 0.4 MG Tablet SL PRN (16:22)
--- NOTE | 2017-07-18 16:22 | PCM.HP ---
History of Present Illness - Chief Complaint Chief Complaint: tia History of Present Illness: Mr.BARISH MILLER is a 76 year old male with a history of prior CVA, he presented to the ER with complaints of dizziness, was unsteady and fell yesterday. family was concerned that his speech seemed slurred and his gait was unsteady. he felt weak diffusely, family also noted a facial droop but seems resolved now. his only complaint currently is fatigue. - Review of Systems Constitutional: No Fever, No Chills Respiratory: No Cough, No Short Of Breath Cardiac: No Chest Pain, No Edema, No Syncope Abdominal/Gastrointestinal: No Abdominal Pain, No Nausea, No Vomiting, No Diarrhea Neurological: Dizziness, Focal Weakness, Gait Changes, Speech Changes All Other Systems: Reviewed and Negative Medications & Allergies Home Medications: Home Medication List Furosemide 40 mg [Lasix 40 MG] 40 mg PO DAILY 11/07/12 [History Confirmed 07/18/17] Nitroglycerin 0.4 mg Tablet [Nitrostat 0.4 MG Tablet] 0.4 mg SL UD PRN 09/02 [History Confirmed 07/18/17] Aspirin 325 mg PO DAILY 01/16/15 [History Confirmed 07/18/17] Lisinopril 5 mg [Zestril 5 MG] 10 mg PO DAILY 01/16/15 [History Confirmed 07/18/17] Magnesium Oxide 400 mg [Mag-Ox 400] 400 mg PO DAILY 01/22/15 [History Confirmed 07/18/17] Alprazolam 0.25 mg [xanAX 0.25 MG] 0.25 mg PO HS 03/29/15 [History Confirmed 07/18/17] Simvastatin [Zocor] 5 mg PO DAILY 03/29/15 [History Confirmed 07/18/17] Cetirizine HCl [Zyrtec] 10 mg PO DAILY 02/07/17 [History Confirmed 07/18/17] Glimepiride 4 mg [Amaryl 4 mg] 4 mg PO DAILY 02/07/17 [History Confirmed 07/18/17] Metformin HCl 500 mg [Glucophage 500 MG] 1,000 mg PO BID 02/07/17 [ History Confirmed 07/18/17] Tamsulosin HCl 0.4 mg [Flomax 0.4 MG] 0.4 mg PO DAILY 02/07/17 [History Confirmed 07/18/17] Warfarin Sodium 5 mg [Coumadin 5 MG] 5 mg PO MoWeFr@1800 #0 tablet [Rx Confirmed 07/18/17] Carvedilol 12.5 mg [Coreg 12.5 mg] 18.75 mg PO BID 07/18/17 [History Confirmed 07/18/17] Gabapentin 400 mg [Neurontin 400 MG] 800 mg PO TID 07/18/17 [History Confirmed 07/18/17] Warfarin Sodium 2.5 mg [Coumadin 2.5 MG] 2.5 mg PO WEEKLY 07/18/17 [ History Confirmed 07/18/17] Allergies/Adverse Reactions: Allergies Allergy/AdvReac Type Severity Reaction Status Date / Time ether Allergy Verified 07/18/17 10:00 BEE STING AdvReac Mild Uncoded 07/18/17 10:00 - Past Medical History Past Medical History: Yes Neurological History: Stroke ENT History: No Pertinent History Cardiac History: Arrhythmia, Coronary Artery Disease, Congestive Heart Failure, Myocardial Infarction ([place]), Hypertension Respiratory History: Sleep Apnea, Other Endocrine Medical History: Diabetes Type II Musculoskelatal History: Other GI Medical History: No Pertinent History History: Other Pyscho-Social History: No Pertinent History Male Reproductive Disorders: No Pertinent History Comment: kidney stones 1999 - Past Surgical History Past Surgical History: Yes Neuro Surgical History: No Pertinent History Cardiac History: Cardiac Catheterization, Pacemaker, Internal Defibrillator Respiratory Surgery: Chest Surgery GI Surgical History: No Pertinent History Genitourinary Surgical Hx: Kidney Surgery Musculskeletal Surgical Hx: Orthopedic Surgery Male Surgical History: No Pertinent History Other Surgical History: 2 knee scopes right, T&A - Social History Smoking Status: Former smoker How long have you smoked: 30 yrs Exposure to second hand smoke: Yes Alcohol: Occasionally Drug Use: none - Physical Exam Vital Signs: Vital Signs - 24 hr Temp Pulse Resp BP Pulse Ox 07/18/17 15:20 98.2 F 78 130/66 07/18/17 15:11 97.0 F 74 18 108/57 07/18/17 15:06 95 07/18/17 14:50 18 07/18/17 14:48 74 14 108/57 96 07/18/17 14:29 72 16 111/58 96 07/18/17 14:28 100 07/18/17 13:57 70 20 115/76 99 07/18/17 12:59 70 20 106/57 97 07/18/17 11:50 18 07/18/17 11:29 70 18 111/46 97 07/18/17 09:50 97.0 F 75 22 127/65 100 General Appearance: no apparent distress, alert Neurologic Exam: alert, oriented x 3, cooperative, it communications specialist II-XII nml as tested, normal mood/affect, No motor deficits, No sensory deficit, No disoriented, No confusion, No agitation Eye Exam: PERRL/EOMI, eyes nml inspection Respiratory Exam: normal breath sounds, lungs clear, No respiratory distress Cardiovascular Exam: regular rate/rhythm, normal heart sounds, normal peripheral pulses Gastrointestinal/Abdomen Exam: soft, normal bowel sounds, No tenderness, No mass Extremity Exam: normal inspection, normal range of motion, pelvis stable Skin Exam: normal color, warm, dry, No rash Assessment/Plan (1) TIA (transient ischemic attack) Current Visit: Yes Status: Acute Qualifiers: Transient cerebral ischemia type: unspecified Qualified Code(s): G45.9 - Transient cerebral ischemic attack, unspecified Assessment & Plan: seems neurologically intact but concern for TIA with transient facial droop, slurred speech and diffuse weakness. continue current meds at this time. (2) Anticoagulated on warfarin Current Visit: No Status: Acute Assessment & Plan: continue home dose Code(s): Z79.01 - TRACK REPAIRER (CURRENT) USE OF ANTICOAGULANTS (3) CVA (cerebral infarction) Current Visit: No Status: Acute Assessment & Plan: continue current meds including aspirin and warfarin Code(s): I63.9 - CEREBRAL INFARCTION, UNSPECIFIED (4) Coronary arteriosclerosis Current Visit: No Status: Chronic (5) Diabetes type 2, controlled Current Visit: No Status: Chronic Assessment & Plan: SSI at this time, check a1c Code(s): E11.9 - TYPE 2 DIABETES MELLITUS WITHOUT COMPLICATIONS
[2017-07-18] MEDS ORDERED: Sodium Chloride 0.9% 10 ML FLUSH Syringe IV PRN (16:34)
[2017-07-18] MEDS: Neurontin 400 MG PO SCH ×2 (17:09→21:18)
[2017-07-18] MEDS ORDERED: Coumadin 5 MG PO SCH (18:00)
[2017-07-18 19:30] LABS: INR 2.51 (0.8-3.0); PROTIME 28.2 SECONDS (8.83-12.87)
[2017-07-18] MEDS: Coreg 6.25 MG PO SCH (21:18)
[2017-07-18] MEDS: COREG 12.5 MG PO SCH (21:18)
[2017-07-18] MEDS: Sodium Chloride 0.9% 10 ML FLUSH Syringe IV SCH (21:19)
[2017-07-18] MEDS ORDERED: xanAX 0.25 MG PO SCH (22:00)
[2017-07-19 04:38] VITALS: O2SAT 95
[2017-07-19 05:40] LABS: Mean Cell Volume 92.9 fl (78-100); Mean Corpuscular Hemoglobin 31.3 pg (26-32); Mean Platelet Volume 10.1 fl (6-9.5); Platelet Count 155 K/mm3 (150-450); Red Blood Count 4.53 M/mm3 (4.1-5.6); Red Cell Distribution Width 13.3 % (11.5-14.0)
[2017-07-19 06:18] LABS: ANION GAP 12.9 MEQ/L (5-15); BLOOD UREA NITROGEN 36 mg/dL (9-20); CHLORIDE 102 mEq/L (98-107); Carbon Dioxide 24.4 mEq/L (21-32); Glucose 150 MG/DL (70-110); Potassium 5.3 mEq/L (3.5-5.1); SODIUM 134 mEq/L (136-145)
[2017-07-19] MEDS: Sodium Chloride 0.9% 10 ML FLUSH Syringe IV SCH (06:25)
[2017-07-19 07:27] LABS: Total Cells Counted 100
[2017-07-19 07:28] LABS: Platelet Estimate NORMAL (NORMAL)
[2017-07-19 07:33] VITALS: BP 135/65; PULSE 80
--- NOTE | 2017-07-19 08:49 | PCM.DS ---
Discharge Summary Date of Admission: 07/18/17 15:03 Admitting Physician: EVE HER Primary Care Provider: EVE HER Allergies Allergies ether Allergy (Verified 07/18/17 10:00) BEE STING Adverse Reaction (Mild, Uncoded 07/18/17 10:00) Hospital Summary - Hospital Course Hospital Course: patient was admitted with dizziness, fall, concern for possible TIA. symptoms had resolved at admission, he has had no problems or deficits since admission. ambulating and tolerating po - Vitals & Intake/Output Vital Signs: Vital Signs Temperature 97.8 F 07/19/17 07:33 Pulse Rate 80 07/19/17 07:33 Respiratory Rate 22 07/19/17 07:33 Blood Pressure 135/65 07/19/17 07:33 O2 Sat by Pulse Oximetry 95 07/19/17 07:33 Oxygen-Last Documented O2 Percentage 2 Liters = 28% Intake & Output: Intake & Output 07/16/17 07/17/17 07/18/17 07/19/17 11:59 11:59 11:59 11:59 Intake Total 940 Output Total 750 Balance 190 Weight 88.451 kg - Lab Result Diagrams: 07/19/17 05:10 07/19/17 05:10 Lab Results-Last 24 Hrs: Accuchecks Date 07/19/17 Time 07:49 Accucheck Value: 172 Accucheck Value: 159 Lab Results-Last 24 Hours 07/18/17 07/18/17 07/18/17 Range/Units 16:12 19:07 19:07 WBC (4.0-10.5) K/mm3 RBC (4.1-5.6) M/mm3 Hgb (12.5-18.0) gm/dl Hct (42-50) % MCV (78-100) fl MCH (26-32) pg MCHC (32-36) g/dl RDW (11.5-14.0) % Plt Count (150-450) K/mm3 MPV (6-9.5) fl Segmented Neutrophils (36.-66.) % Lymphocytes (Manual) (24-44) % Monocytes (Manual) (0.0-12.0) % Differential Comment Platelet Estimate (NORMAL) INR 2.51 (0.8-3.0) Sodium (136-145) mEq/L Potassium (3.5-5.1) mEq/L Chloride (98-107) mEq/L Carbon Dioxide (21-32) mEq/L Anion Gap (5-15) MEQ/L BUN (9-20) mg/dL Creatinine (0.55-1.30) mg/dl Estimated GFR ML/MIN Glucose (70-110) MG/DL Calcium (8.5-10.1) mg/dL Troponin I 0.017 0.018 (0.000-0.056) ng/ml 07/18/17 07/19/17 07/19/17 Range/Units 22:20 05:10 05:10 WBC 12.0 H (4.0-10.5) K/mm3 RBC 4.53 (4.1-5.6) M/mm3 Hgb 14.2 (12.5-18.0) gm/dl Hct 42.1 (42-50) % MCV 92.9 (78-100) fl MCH 31.3 (26-32) pg MCHC 33.7 (32-36) g/dl RDW 13.3 (11.5-14.0) % Plt Count 155 (150-450) K/mm3 MPV 10.1 H (6-9.5) fl Segmented Neutrophils 74 H (36.-66.) % Lymphocytes (Manual) 23 L (24-44) % Monocytes (Manual) 3 (0.0-12.0) % Differential Comment NORMAL Platelet Estimate NORMAL (NORMAL) INR (0.8-3.0) Sodium 134 L (136-145) mEq/L Potassium 5.3 H (3.5-5.1) mEq/L Chloride 102 (98-107) mEq/L Carbon Dioxide 24.4 (21-32) mEq/L Anion Gap 12.9 (5-15) MEQ/L BUN 36 H (9-20) mg/dL Creatinine 1.21 (0.55-1.30) mg/dl Estimated GFR > 60 ML/MIN Glucose 150 H (70-110) MG/DL Calcium 8.7 (8.5-10.1) mg/dL Troponin I 0.022 (0.000-0.056) ng/ml Micro Results-Entire Visit: Accuchecks Date 07/19/17 Time 07:49 Accucheck Value: 172 Accucheck Value: 159 - Procedures and Test Procedures and Tests throughout Hospitalization: Therapy Orders & Screens 07/18/17 23:31 Oxygen NASAL CANNULA 2 lpm Comment: Diagnosis: tia Discharge Exam General Appearance: no apparent distress, alert Neurologic Exam: alert, oriented x 3, cooperative, normal mood/affect, nml cerebellar function, sensation nml, No motor deficits Skin Exam: normal color, warm, dry Respiratory Exam: normal breath sounds, lungs clear, No respiratory distress Cardiovascular Exam: regular rate/rhythm, normal heart sounds Gastrointestinal/Abdomen Exam: soft, No tenderness, No mass Final Diagnosis/Problem List - Final Discharge Diagnosis/Problem (1) TIA (transient ischemic attack) Current Visit: Yes Status: Acute Assessment & Plan: appears to be a TIA based on history and fleeting nature of symptoms. no change at this time to medical management, patient is therapeutic on coumadin (2) Anticoagulated on warfarin Current Visit: No Status: Acute (3) CVA (cerebral infarction) Current Visit: No Status: Acute (4) Coronary arteriosclerosis Current Visit: No Status: Chronic (5) Diabetes type 2, controlled Current Visit: No Status: Chronic - Discharge Disposition: Home, Self-Care Condition: Stable Prescriptions: Continue Furosemide 40 mg [Lasix 40 MG] 40 mg PO DAILY Nitroglycerin 0.4 mg Tablet [Nitrostat 0.4 MG Tablet] 0.4 mg SL UD PRN PRN Reason: Chest Pain Lisinopril 5 mg [Zestril 5 MG] 10 mg PO DAILY Aspirin 325 mg PO DAILY Magnesium Oxide 400 mg [Mag-Ox 400] 400 mg PO DAILY Alprazolam 0.25 mg [xanAX 0.25 MG] 0.25 mg PO HS Simvastatin [Zocor] 5 mg PO DAILY Glimepiride 4 mg [Amaryl 4 mg] 4 mg PO DAILY Cetirizine HCl [Zyrtec] 10 mg PO DAILY Tamsulosin HCl 0.4 mg [Flomax 0.4 MG] 0.4 mg PO DAILY Metformin HCl 500 mg [Glucophage 500 MG] 1,000 mg PO BID Warfarin Sodium 5 mg [Coumadin 5 MG] 5 mg PO MoWeFr@1800 #0 tablet Warfarin Sodium 2.5 mg [Coumadin 2.5 MG] 2.5 mg PO WEEKLY Carvedilol 12.5 mg [Coreg 12.5 mg] 18.75 mg PO BID Gabapentin 400 mg [Neurontin 400 MG] 800 mg PO TID Follow up with: EVE HER MD [Primary Care Provider] -
[2017-07-19] MEDS: Coreg 6.25 MG PO SCH (09:16)
[2017-07-19] MEDS: COREG 12.5 MG PO SCH (09:16)
[2017-07-19] MEDS: Neurontin 400 MG PO SCH (09:16)
[2017-07-19] MEDS ORDERED: Lasix 40 MG PO SCH (10:00)
[2017-07-19] MEDS ORDERED: NON-FORMULARY ITEM (Aspirin [Aspirin] 325 MG) PO SCH (10:00)
[2017-07-19] MEDS ORDERED: Ecotrin 325 MG PO SCH (10:00)
[2017-07-19] MEDS ORDERED: NON-FORMULARY ITEM (Simvastatin [Zocor] 5 MG) PO SCH (10:00)
[2017-07-19] MEDS ORDERED: Flomax 0.4 MG PO SCH (10:00)
[2017-07-19] MEDS ORDERED: Zestril 10 MG PO SCH (10:00)
[2017-07-19] MEDS ORDERED: Zocor 10MG PO SCH (10:00)
[2017-07-19] MEDS ORDERED: MAG-OX 400 PO SCH (10:00)
[2017-07-19] MEDS ORDERED: Coumadin 2.5 MG PO SCH (18:00)
== END 2017-07-19 09:45 | disposition home or self-care (01) ==
LOC: ED 09:44 → MED SURG 15:03
PROVIDERS: ADMIT Family Medicine; ATTEND Family Medicine
DX: G45.9 Transient cerebral ischemic attack, unspecified (principal); Z79.01 Long term (current) use of anticoagulants; I63.9 Cerebral infarction, unspecified; I25.10 Atherosclerotic heart disease of native coronary artery without angina pectoris; E11.9 Type 2 diabetes mellitus without complications; Z79.4 Long term (current) use of insulin; I50.9 Heart failure, unspecified; I10 Essential (primary) hypertension; Z79.899 Other long term (current) drug therapy; I25.2 Old myocardial infarction; Z95.810 Presence of automatic (implantable) cardiac defibrillator; S50.311A Abrasion of right elbow, initial encounter; M25.551 Pain in right hip; M25.521 Pain in right elbow; M25.511 Pain in right shoulder; W01.0XXA Fall on same level from slipping, tripping and stumbling without subsequent striking against object, initial encounter; Y93.9 Activity, unspecified; Y92.008 Other place in unspecified non-institutional (private) residence as the place of occurrence of the external cause; Z23 Encounter for immunization; A35 Other tetanus
CPT/HCPCS: 36000; 36415; 70450; 73030; 73080; 73502; 80048; 80053; 82962; 83036; 83880; 84484; 85025; 85610; 90471; 90715; 93005; 93041; 93268; 94760; 99285; G0378; A9270-GY

== ENCOUNTER 2017-11-22 15:06 | Inpatient (IN) | payer MEDICARE ==
[2017-11-22] MEDS ORDERED: xanAX 0.25 MG PO PRN (15:33)
[2017-11-22] MEDS ORDERED: NovoLOG Insulin SQ PRN (15:34)
[2017-11-22 16:03] LABS: BASOPHIL % 0.1 % (0.0-0.4); Basophil (Absolute #) 0.01 (0-0.4); Eosinophil % 4.6 % (0.00-5.0); Eosinophil (Absolute #) 0.33 (0-0.5); Granulocyte Absolute (ANC) 5.01 (1.4-6.9); Granulocytes % 70.3 % (36.0-66.0); Hematocrit 44.3 % (42-50); Hemoglobin 14.4 gm/dl (12.5-18.0); Lymphocyte (Absolute #) 1.26 (1.0-4.6); Lymphocytes % 17.6 % (24.0-44.0); Mean Cell Volume 100.7 fl (78-100); Mean Corpuscular Hemoglobin 32.7 pg (26-32); Mean Corpuscular Hgb Concent. 32.5 g/dl (32-36); Mean Platelet Volume 10.5 fl (6-9.5); Monocyte (Absolute #) 0.53 (0.0-1.3); Monocytes % 7.4 % (0.0-12.0); Platelet Count 144 K/mm3 (150-450); Red Cell Distribution Width 15.8 % (11.5-14.0); White Blood Count 7.1 K/mm3 (4.0-10.5)
[2017-11-22 16:18] LABS: INR 3.06 (0.8-3.0)
[2017-11-22 16:22] LABS: ALKALINE PHOSPHATASE 72 U/L (38-126); ANION GAP 17.1 MEQ/L (5-15); BLOOD UREA NITROGEN 22 mg/dL (9-20); CHLORIDE 104 mmol/L (98-107); Calcium 9.1 mg/dL (8.4-10.2); Carbon Dioxide 25 mmol/L (22-30); Creatinine 1 1.19 mg/dL (0.66-1.25); Glucose 179 mg/dL (74-106); Potassium 4.7 mmol/L (3.5-5.1); SGOT/AST 16 U/L (17-59); SGPT/ALT 21 U/L (0-50); SODIUM 141 mmol/L (137-145); Total Protein 6.8 g/dL (6.3-8.2)
--- NOTE | 2017-11-22 16:54 | XRAY ---
Indication: Short of breath. Comparison: February 07, 2017. Portable chest slightly underinflated with again minimal bibasilar atelectasis/scarring and a few scattered calcified granulomas. No focal infiltrate, consolidation, or large effusion. Heart is borderline enlarged again with left-sided AICD. Bony thorax intact again with osteopenia and degenerative changes. Impression: Nonacute underinflated chest with chronic features.
--- NOTE | 2017-11-22 16:58 | XRAY ---
Indication: Dizziness. Multiple contiguous axial images obtained through the head without contrast. Comparison: July 18, 2017. Stable age-appropriate global atrophy and mild periventricular degenerative micro-ischemia bilaterally. Tiny remote lacunar infarcts in the right external capsule and left mid periventricular white matter. No acute intracranial hemorrhage, abnormal extra-axial fluid collection, or mass effect. Fourth ventricle is midline without hydrocephalus. Stable vascular calcifications including left vertebral basilar artery. Bony calvarium intact. Visualized paranasal sinuses and mastoid air cells are clear. Impression: Again nonacute senile brain with remote lacunar infarcts. CTDI 67.99
[2017-11-22] MEDS: Sodium Chloride 0.9% 1000 ML 1,000 ML IV SCH (17:30)
[2017-11-22] MEDS ORDERED: Coumadin 2.5 MG PO SCH (18:00)
[2017-11-22] MEDS ORDERED: Neurontin 400 MG ONE (19:58)
[2017-11-22] MEDS ORDERED: COREG 12.5 MG ONE (19:58)
[2017-11-22] MEDS: COREG 12.5 MG PO SCH (21:49)
[2017-11-22] MEDS: Neurontin 400 MG PO SCH (21:49)
[2017-11-23 00:20] LABS: Appearance CLEAR (CLEAR)
[2017-11-23 00:21] LABS: Bilirubin NEGATIVE (NEGATIVE); Blood NEGATIVE Ery/ul (0-5); Glucose NEGATIVE (NEGATIVE); Ketones NEGATIVE (NEGATIVE); Leukocyte Esterase NEGATIVE (NEGATIVE); Nitrite NEGATIVE (NEGATIVE); Protein,Urine Dip NEGATIVE (Negative); Specific Gravity 1.025 (1.005-1.025); Urobilinogen NORMAL mg/dL (0-1)
--- NOTE | 2017-11-23 08:21 | PCM.NOTE ---
Date and Time: 11/23/17818 Subjective Assessment: patient still feels extremely weak, cough productive of brown sputum overnight. Objective Exam General Appearance: no apparent distress, alert Respiratory Exam: rhonchi Cardiovascular Exam: regular rate/rhythm, normal heart sounds Gastrointestinal/Abdomen Exam: soft, No tenderness, No mass Extremity Exam: normal inspection, normal range of motion OBJECTIVE DATA Vital Signs: Vital Signs - 24 hr Temp Pulse Resp BP Pulse Ox 11/23/17 07:21 88 20 99 11/23/17 04:05 98.3 F 89 26 H 109/68 96 11/23/17 00:10 97.6 F 79 24 121/73 95 11/22/17 20:20 76 30 H 95 11/22/17 20:00 98.4 F 77 30 H 130/77 94 L 11/22/17 15:57 98.4 F 81 120/76 11/22/17 15:27 98.4 F 81 20 120/76 95 Oxygen-Last 24 hours O2 Percentage 4 Liters = 36% O2 Percentage 2 Liters = 28% O2 Percentage 2 Liters = 28% Pain Assessment - Last Documented Pain Intensity 0 Pain Scale Used 0-10 Pain Scale Intake and Output: Intake & Output 11/20/17 11/21/17 11/22/17 11/23/17 11:59 11:59 11:59 11:59 Intake Total 1653 Output Total 750 Balance 903 Weight 99 kg Lab Results: Accuchecks Date 11/22/17 Time 22:00 Accucheck Value: 117 Lab Results-Last 24 Hours 11/22/17 11/22/17 11/22/17 Range/Units 15:40 15:40 15:40 WBC 7.1 (4.0-10.5) K/mm3 RBC 4.40 (4.1-5.6) M/mm3 Hgb 14.4 (12.5-18.0) gm/dl Hct 44.3 (42-50) % MCV 100.7 H (78-100) fl MCH 32.7 H (26-32) pg MCHC 32.5 (32-36) g/dl RDW 15.8 H (11.5-14.0) % Plt Count 144 L (150-450) K/mm3 MPV 10.5 H (6-9.5) fl Gran % 70.3 H (36.0-66.0) % Eos # (Auto) 0.33 (0-0.5) Absolute Lymphs (auto) 1.26 (1.0-4.6) Absolute Monos (auto) 0.53 (0.0-1.3) Lymphocytes % 17.6 L (24.0-44.0) % Monocytes % 7.4 (0.0-12.0) % Eosinophils % 4.6 (0.00-5.0) % Basophils % 0.1 (0.0-0.4) % Absolute Granulocytes 5.01 (1.4-6.9) Basophils # 0.01 (0-0.4) PT 34.4 H (8.83-12.87) SECONDS INR 3.06 H (0.8-3.0) Sodium 141 (137-145) mmol/L Potassium 4.7 (3.5-5.1) mmol/L Chloride 104 (98-107) mmol/L Carbon Dioxide 25 (22-30) mmol/L Anion Gap 17.1 H (5-15) MEQ/L BUN 22 H (9-20) mg/dL Creatinine 1.19 (0.66-1.25) mg/dL Estimated GFR > 60.0 ML/MIN Glucose 179 H (74-106) mg/dL Hemoglobin A1c (4.5-6.0) % Calcium 9.1 (8.4-10.2) mg/dL Total Bilirubin 0.90 (0.2-1.3) mg/dL AST 16 L (17-59) U/L ALT 21 (0-50) U/L Alkaline Phosphatase 72 (38-126) U/L Serum Total Protein 6.8 (6.3-8.2) g/dL Albumin 4.0 (3.5-5.0) g/dL Ur Collection Type Urine Color (YELLOW) Urine Appearance (CLEAR) Urine pH (5-6) Ur Specific [place] (1.005-1.025) Urine Protein (Negative) Urine Ketones (NEGATIVE) Urine Blood (0-5) Devin/ul Urine Nitrite (NEGATIVE) Urine Bilirubin (NEGATIVE) Urine Urobilinogen (0-1) mg/dL Ur Leukocyte Esterase (NEGATIVE) Urine Glucose (NEGATIVE) mg/dL Specimen Received 04/05/18 04/05/18 Range/Units 15:40 23:25 WBC (4.0-10.5) K/mm3 RBC (4.1-5.6) M/mm3 Hgb (12.5-18.0) gm/dl Hct (42-50) % MCV (78-100) fl MCH (26-32) pg MCHC (32-36) g/dl RDW (11.5-14.0) % Plt Count (150-450) K/mm3 MPV (6-9.5) fl Gran % (36.0-66.0) % Eos # (Auto) (0-0.5) Absolute Lymphs (auto) (1.0-4.6) Absolute Monos (auto) (0.0-1.3) Lymphocytes % (24.0-44.0) % Monocytes % (0.0-12.0) % Eosinophils % (0.00-5.0) % Basophils % (0.0-0.4) % Absolute Granulocytes (1.4-6.9) Basophils # (0-0.4) PT (8.83-12.87) SECONDS INR (0.8-3.0) Sodium (137-145) mmol/L Potassium (3.5-5.1) mmol/L Chloride (98-107) mmol/L Carbon Dioxide (22-30) mmol/L Anion Gap (5-15) MEQ/L BUN (9-20) mg/dL Creatinine (0.66-1.25) mg/dL Estimated GFR ML/MIN Glucose (74-106) mg/dL Hemoglobin A1c 7.16 H (4.5-6.0) % Calcium (8.4-10.2) mg/dL Total Bilirubin (0.2-1.3) mg/dL AST (17-59) U/L ALT (0-50) U/L Alkaline Phosphatase (38-126) U/L Serum Total Protein (6.3-8.2) g/dL Albumin (3.5-5.0) g/dL Ur Collection Type CLEAN CATCH Urine Color YELLOW (YELLOW) Urine Appearance CLEAR (CLEAR) Urine pH 5.0 (5-6) Ur Specific [place] 1.025 (1.005-1.025) Urine Protein NEGATIVE (Negative) Urine Ketones NEGATIVE (NEGATIVE) Urine Blood NEGATIVE (0-5) Devin/ul Urine Nitrite NEGATIVE (NEGATIVE) Urine Bilirubin NEGATIVE (NEGATIVE) Urine Urobilinogen NORMAL (0-1) mg/dL Ur Leukocyte Esterase NEGATIVE (NEGATIVE) Urine Glucose NEGATIVE (NEGATIVE) mg/dL Specimen Received 11/22/17 8136 Radiology Exams: Radiology Procedures Category Date Time Status CHEST 1 VIEW (PORTABLE) Urgent Exams 11/22/17 15:45 Completed HEAD WITHOUT CONTRAST [CT] Urgent Exams 11/22/17 15:45 Completed Multi-Disciplinary Progress Notes: Multi-Disciplinary Progress Notes 11/23/17 00:20 Respiratory Note by Aneesh Bashir CNA LET ME KNOW SHE PUT PT ON CPAP WHILE I WAS ATTENDING A CODE IN ER. I CHECKED PT SATS AND THEY WERE 96% ON A CPAP OF 10 W/ 3LPM INLINE AND HR WAS 88% . I NOTICED A PIECE OF PLASTIC TAPED TO THE BACK OF THE PT CPAP...I AM UNSURE WHY OR WHAT IT DOES. I WILL NOTIFY DANIEL SHE IS GETTING READY TO RELIEVE ME AND HAVE HER ASSESS AND SEE IF SHE KNOWS WHAT/WHY IT WLD BE TAPED THERE. Initialized on 11/23/17 00:20 - END OF NOTE Assessment/Plan (1) Acute bronchitis Current Visit: Yes Status: Acute Assessment & Plan: add rocephin/zithromax and nebs. xray negative Code(s): J20.9 - ACUTE BRONCHITIS, UNSPECIFIED (2) Weakness Current Visit: Yes Status: Acute Assessment & Plan: nothing new or acute on CT head, INR therapeutic. may need some rehab following hospital stay if not improving. Code(s): R53.1 - WEAKNESS (3) Diabetes type 2, controlled Current Visit: No Status: Chronic Code(s): E11.9 - TYPE 2 DIABETES MELLITUS WITHOUT COMPLICATIONS
[2017-11-23] MEDS: ECOTRIN 81 MG PO SCH (08:42)
[2017-11-23] MEDS: Lasix 40 MG PO SCH (08:42)
[2017-11-23] MEDS: Zestril 10 MG PO SCH (08:42)
[2017-11-23] MEDS: COREG 12.5 MG PO SCH ×2 (08:43→22:03)
[2017-11-23] MEDS: Neurontin 400 MG PO SCH ×3 (08:43→22:03)
[2017-11-23] MEDS: ROCEPHIN 1 Gm-D5w 50 ml Bag** 1 G/50 ML IVPB IV SCH (08:44)
[2017-11-23] MEDS ORDERED: NON-FORMULARY ITEM (Simvastatin [Zocor] 5 MG) PO SCH (10:00)
[2017-11-23] MEDS ORDERED: DUONEB 0.5-3 MG/3 ml Neb IH ONE (10:04)
[2017-11-23] MEDS: DUONEB 0.5-3 MG/3 ml Neb IH SCH ×3 (10:05→23:10)
[2017-11-23] MEDS: Zithromax 500 MG/ 250 ML NaCl Premix 500 MG/250 ML IVPB IV SCH (10:15)
[2017-11-23] MEDS: Flomax 0.4 MG PO SCH (10:15)
[2017-11-23 10:23] LABS: INR 3.41 (0.8-3.0)
[2017-11-23] MEDS: Sodium Chloride 0.9% 1000 ML 1,000 ML IV SCH (17:08)
[2017-11-23] MEDS ORDERED: Coumadin 2 MG PO SCH (18:00)
[2017-11-23] MEDS ORDERED: Coumadin 5 MG PO SCH (18:00)
[2017-11-23] MEDS ORDERED: NON-FORMULARY ITEM (Ropinirole Hcl [Requip] 1 MG) PO SCH (22:00)
[2017-11-23] MEDS: Zocor 10MG PO SCH (22:02)
[2017-11-23] MEDS: Requip 0.5 MG PO SCH (22:03)
[2017-11-23] MEDS: xanAX 0.25 MG PO SCH (22:08)
[2017-11-24 05:48] LABS: BASOPHIL % 0.3 % (0.0-0.4); Basophil (Absolute #) 0.02 (0-0.4); Eosinophil % 3.6 % (0.00-5.0); Eosinophil (Absolute #) 0.25 (0-0.5); Granulocyte Absolute (ANC) 4.71 (1.4-6.9); Granulocytes % 67.6 % (36.0-66.0); Hematocrit 42.5 % (42-50); Hemoglobin 13.8 gm/dl (12.5-18.0); Lymphocyte (Absolute #) 1.34 (1.0-4.6); Lymphocytes % 19.2 % (24.0-44.0); Mean Cell Volume 100.7 fl (78-100); Mean Corpuscular Hemoglobin 32.7 pg (26-32); Mean Corpuscular Hgb Concent. 32.5 g/dl (32-36); Mean Platelet Volume 10.6 fl (6-9.5); Monocyte (Absolute #) 0.65 (0.0-1.3); Monocytes % 9.3 % (0.0-12.0); Platelet Count 127 K/mm3 (150-450); Red Blood Count 4.22 M/mm3 (4.1-5.6); Red Cell Distribution Width 15.7 % (11.5-14.0)
[2017-11-24 06:03] LABS: INR 3.01 (0.8-3.0)
[2017-11-24 06:26] LABS: ANION GAP 15.3 MEQ/L (5-15); Calcium 8.7 mg/dL (8.4-10.2); Creatinine 1 1.35 mg/dL (0.66-1.25); Potassium 4.9 mmol/L (3.5-5.1)
[2017-11-24] MEDS: DUONEB 0.5-3 MG/3 ml Neb IH SCH ×3 (07:46→20:16)
[2017-11-24] MEDS: Neurontin 400 MG PO SCH ×3 (09:11→23:55)
[2017-11-24] MEDS: Lasix 40 MG PO SCH (09:11)
[2017-11-24] MEDS: Flomax 0.4 MG PO SCH (09:11)
[2017-11-24] MEDS: ECOTRIN 81 MG PO SCH (09:11)
[2017-11-24] MEDS: ROCEPHIN 1 Gm-D5w 50 ml Bag** 1 G/50 ML IVPB IV SCH (09:12)
[2017-11-24] MEDS: COREG 12.5 MG PO SCH ×2 (09:14→23:55)
[2017-11-24] MEDS: Zestril 10 MG PO SCH (09:14)
[2017-11-24] MEDS: Zithromax 500 MG/ 250 ML NaCl Premix 500 MG/250 ML IVPB IV SCH (10:26)
[2017-11-24] MEDS ORDERED: Lasix 40 MG/4 ML IV ONE (11:41)
--- NOTE | 2017-11-24 11:57 | PCM.NOTE ---
Date and Time: 11/24/17 1150 Subjective Assessment: His is at the bedside. He continues to have almost continuous cough productive of sputum. His reports his weight is up from his baseline and he is very swollen in his legs and abdomen. She reports he is not having much urine output with the po lasix. She is concerned about his ejection fraction on the Echo he had done yesterday but we do not have a reading yet. On review of clinic records. His baseline weight is 90 kg and he is over 100 kg here. He has a history of ischemic dilated cardiolmyopathy, CHF (I can't find an EF recorded anywhere in outpatient or inpatient records), hx of brainstem stroke. His thinks he is on the coumadin for the hx of brainstem stroke but states Dr. Russell manages his INR. He has a history of AICD on review of his chart too. Patient reports his doctors include Dr. Granda, Dr. Russell, Dr. Wallace, and Dr. Rainey. He reports he usually only wears oxygen at night with his CPAP. He has had decreased appetite. His nurse just reported that he hasn't had much out and is having trouble urinating. - Review of Systems Constitutional: Fatigue Eyes: No Symptoms Ears, Nose, & Throat: No Symptoms Respiratory: Cough, Short Of Breath Cardiac: No Symptoms Abdominal/Gastrointestinal: Other (distended with fluid) Genitourinary Symptoms: Urinary Retention Musculoskeletal: No Symptoms Skin: No Symptoms Objective Exam General Appearance: cachetic, other (mild distress with cough, able to talk, speech a little hard to understand at times) Neurologic Exam: alert, cooperative, normal mood/affect Skin Exam: normal color, warm, dry Respiratory Exam: airway intact, diminished breath sounds, rhonchi, No respiratory distress, No wheezing Cardiovascular Exam: regular rate/rhythm, No murmur, No friction rub, No gallop Gastrointestinal/Abdomen Exam: soft, normal bowel sounds, distention, No tenderness, No mass, No guarding Extremity Exam: other (+3 pitting edema to knees bilat, no c/c) OBJECTIVE DATA Vital Signs: Vital Signs - 24 hr Temp Pulse Resp BP Pulse Ox 11/24/17 07:29 98.4 F 71 20 95/61 92 L 11/24/17 05:00 69 18 97 11/24/17 04:00 97.8 F 73 18 111/66 94 L 11/23/17 23:56 97.9 F 77 20 98/56 93 L 11/23/17 23:11 67 24 95 11/23/17 19:20 97.9 F 72 19 92/55 95 11/23/17 16:00 98.0 F 84 22 98/55 93 L 11/23/17 15:26 84 22 93 L Oxygen-Last 24 hours O2 Percentage 3 Liters = 32% O2 Percentage 3 Liters = 32% O2 Percentage 3 Liters = 32% O2 Percentage 3 Liters = 32% O2 Percentage 3 Liters = 32% Pain Assessment - Last Documented Pain Intensity 0 Pain Scale Used 0-10 Pain Scale Intake and Output: Intake & Output 11/22/17 11/23/17 11/24/17 11/25/17 06:59 06:59 06:59 06:59 Intake Total 1653 2714 120 Output Total 750 450 Balance 903 2264 120 Weight 101.3 kg 102.8 kg Lab Results: Accuchecks Date 11/23/17 Date 11/23/17 Time 21:00 Time 16:30 Accucheck Value: 133 Accucheck Value: 118 Accucheck Value: 102 Lab Results-Last 24 Hours 11/24/17 11/24/17 11/24/17 Range/Units 05:30 05:45 05:45 WBC 7.0 (4.0-10.5) K/mm3 RBC 4.22 (4.1-5.6) M/mm3 Hgb 13.8 (12.5-18.0) gm/dl Hct 42.5 (42-50) % MCV 100.7 H (78-100) fl MCH 32.7 H (26-32) pg MCHC 32.5 (32-36) g/dl RDW 15.7 H (11.5-14.0) % Plt Count 127 L (150-450) K/mm3 MPV 10.6 H (6-9.5) fl Gran % 67.6 H (36.0-66.0) % Eos # (Auto) 0.25 (0-0.5) Absolute Lymphs (auto) 1.34 (1.0-4.6) Absolute Monos (auto) 0.65 (0.0-1.3) Lymphocytes % 19.2 L (24.0-44.0) % Monocytes % 9.3 (0.0-12.0) % Eosinophils % 3.6 (0.00-5.0) % Basophils % 0.3 (0.0-0.4) % Absolute Granulocytes 4.71 (1.4-6.9) Basophils # 0.02 (0-0.4) PT 33.8 H (8.83-12.87) SECONDS INR 3.01 H (0.8-3.0) Sodium 139 (137-145) mmol/L Potassium 4.9 (3.5-5.1) mmol/L Chloride 106 (98-107) mmol/L Carbon Dioxide 22 (22-30) mmol/L Anion Gap 15.3 H (5-15) MEQ/L BUN 32 H (9-20) mg/dL Creatinine 1.35 H (0.66-1.25) mg/dL Estimated GFR 54.8 ML/MIN Glucose 174 H (74-106) mg/dL Calcium 8.7 (8.4-10.2) mg/dL Radiology Exams: Radiology Procedures Category Date Time Status CHEST 1 VIEW (PORTABLE) Urgent Exams 11/22/17 15:45 Completed ECHO W/2D AND DOPPLER [US] Routine Exams 11/23/17 17:25 Taken HEAD WITHOUT CONTRAST [CT] Urgent Exams 11/22/17 15:45 Completed Multi-Disciplinary Progress Notes: Multi-Disciplinary Progress Notes 11/23/17 16:00 (created 11/23/17 17:01) Case Management Note by Laine Huerta DISCHARGE PLAN REVIEWED WITH PT AND PORTIA (LAY CAREGIVER). REPORTS THAT PT IS NORMALLY INDEPENDENT WITH ALL ADL'S, UNTIL THIS EPISODE. WOULD LIKE TO THINK THAT PT WILL BE ABLE TO RETURN HOME TO PRE EPISODIC LEVEL OF FNX. PT REPORTS THAT JUST GETTING TO BATHROOM IS A REAL EFFORT AT THIS POINT. C/O INCREASED SOB WITH ALL ACTIVITY. DISCUSSED HHC SERVICES FOR [facility] SUPPORT ON DISCHARGE VS SWING BED STAY FOR SHORT TERM REHAB. PT/ ARE AGREEABLE TO EITHER, REPORTS THAT WHICHEVER THE DOCTOR FEELS WOULD BE BEST. DECLINED [facility] NEEDS AT PRESENT. WILL FOLLOW FOR ALL DC NEEDS. Initialized on 11/23/17 17:01 - END OF NOTE Assessment/Plan (1) Acute bronchitis Current Visit: Yes Status: Acute Onset Date: ~11/22/17 Assessment & Plan: Continue IV antibiotics. Code(s): J20.9 - ACUTE BRONCHITIS, UNSPECIFIED (2) Acute exacerbation of CHF (congestive heart failure) Current Visit: Yes Status: Acute Assessment & Plan: History of systolic dysfunction. Echo reading pending. Stop IV fluids, stop oral lasix, start IV lasix bid. Check BNP today, daily weights, accurate ins and outs. Baseline weight is 90 kg in outpatient chart. Cough, shortness of breath may be due to chf. 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 His INR has been slightly high. Unsure of what his goal INR is even after review of outpatient records. Indication may be low EF or hx of stroke. No hx of mechanical heart valve found in chart. I will aim for 2-3 on his INR. Dose for all days except and decreased to 3 mg. continue 2.5 mg on and . Recheck INR daily. Code(s): Z79.01 - HEALTHCARE RECEPTIONIST (CURRENT) USE OF ANTICOAGULANTS (4) Diabetes type 2, controlled Current Visit: Yes Status: Acute Assessment & Plan: Continue current treatment. Code(s): E11.9 - TYPE 2 DIABETES MELLITUS WITHOUT COMPLICATIONS (5) Ischemic dilated cardiomyopathy Current Visit: Yes Status: Acute Code(s): I25.5 - ISCHEMIC CARDIOMYOPATHY; I42.0 - DILATED CARDIOMYOPATHY (6) History of stroke Current Visit: Yes Status: Acute Code(s): Z86.73 - PRSNL HX OF TIA (TIA), AND CEREB INFRC W/O RESID DEFICITS
[2017-11-24] MEDS ORDERED: Lasix 40 MG/4 ML IV SCH (17:00)
[2017-11-24] MEDS ORDERED: Coumadin 3 MG PO SCH (18:00)
[2017-11-24] MEDS ORDERED: BUMEX 1 MG IV STA (19:13)
[2017-11-24] MEDS: Requip 0.5 MG PO SCH (23:54)
[2017-11-24] MEDS: Zocor 10MG PO SCH (23:54)
[2017-11-24] MEDS: xanAX 0.25 MG PO SCH (23:56)
[2017-11-25] MEDS: DUONEB 0.5-3 MG/3 ml Neb IH SCH (04:00)
[2017-11-25 06:05] LABS: ANION GAP 14.3 MEQ/L (5-15); Calcium 8.8 mg/dL (8.4-10.2); Creatinine 1 1.63 mg/dL (0.66-1.25); Potassium 5.3 mmol/L (3.5-5.1)
[2017-11-25 06:15] LABS: INR 3.06 (0.8-3.0)
[2017-11-25 06:55] LABS: A-aADO2 119; ABG HEMOGLOBIN 14.6; ABG POTASSIUM 5.3 (3.5-5.1); ARTERIAL BLD GAS O2 SATURATION 90.9 % (95-100); ARTERIAL BLOOD GAS BASE EXCESS -5.7 (-2.0-2.0); ARTERIAL BLOOD GAS FIO2 36 %; ARTERIAL BLOOD GAS PO2 58 mmHg (75-100); CARBOXYHEMOGLOBIN 2.1 % THgb (0.0-6.9); HCO3- 23.9 (22-28); HGB O2 SAT 88.2 g/dF (94-100); Methhemoglobin 0.9 % (1.4-1.5); paO2 pAO1 0.33
[2017-11-25 06:56] LABS: ABG SITE LEFT RADIAL; ALLEN TEST OK? YES; ARTERIAL BLOOD GAS PCO2 64 mmHg (35-45); ARTERIAL BLOOD GAS pH 7.18 (7.35-7.45)
[2017-11-25 08:04] VITALS: BP 125/60; PULSE 85; O2SAT 89
--- NOTE | 2017-11-25 08:40 | XRAY ---
Indication: Altered mental status. Status post fall. Multiple contiguous axial images obtained through the head without contrast. Comparison: November 22, 2017. Again age-appropriate global atrophy and mild periventricular degenerative micro-ischemia. No acute intracranial hemorrhage, abnormal extra-axial fluid collection, or mass effect. Fourth ventricle is midline. Bony calvarium intact. Visualized paranasal sinuses and mastoid air cells are clear. Impression: Stable nonacute senile brain. Common: Preliminary interpretation was made by [facility]. No critical discrepancy. CTDI 45.41
--- NOTE | 2017-11-25 08:46 | XRAY ---
Indication: Pain following fall. Multiple contiguous axial images obtained through the cervical spine. Sagittal and coronal reformatted images obtained. Comparison: None. Several images degraded by motion artifact even with repeat CT. No gross acute fracture or suspicious bony lesions. Mild/moderate C3-C7 degenerative endplate and uncal vertebral spurring. Also atlantoaxial degenerative changes and minimal C3-C5 degenerative vacuum disc phenomena. Sagittal and coronal reformatted images demonstrates straightening of the cervical lordosis, positional versus paraspinal spasm. C3-C7 degenerative disc space narrowing. No acute compression fracture, subluxation, or jumped facet. Normal-appearing coronal cervical junction. Visualized noncontrasted soft tissues demonstrates scattered carotid calcifications bilaterally. Lung apices demonstrates mild/moderate bilateral effusions, right greater than left. CT head reported separately. Impression: 1. Limited exam due to motion artifact. 2. Cervical lordotic straightening, positional versus paraspinal spasm. 3. Multilevel degenerative changes. 4. Incidental biapical pleural effusions. Common: Preliminary interpretation was made by [facility]. Biapical pleural effusions not reported. Telephone report given to Dr. Cosme in the ER at 0846 on November 25, 2017. CTDI 128.34
--- NOTE | 2017-11-25 08:48 | XRAY ---
Indication: Status post fall. Comparison: November 22, 2017. Portable chest demonstrates worsening cardiomegaly with stable left-sided AICD and stable minimal right base infiltrate/atelectasis. CT proven bilateral effusions. No focal infiltrate, consolidation, or pneumothorax.
--- NOTE | 2017-11-25 08:52 | XRAY ---
Indication: Laceration following fall. Comparison: None 2 view left hand demonstrates 4th finger ring, IV angio catheter, and scattered vascular calcifications. No other bony, articular, or soft tissue abnormalities. Comment: Preliminary interpretation was made by [facility]. No discrepancy.
[2017-11-25 18:26] LABS: A-aADO2 538; ABG HEMOGLOBIN 14.2; ABG POTASSIUM 4.9 (3.5-5.1); ARTERIAL BLD GAS O2 SATURATION 96.6 % (95-100); ARTERIAL BLOOD GAS BASE EXCESS -6.8 (-2.0-2.0); ARTERIAL BLOOD GAS FIO2 100 %; ARTERIAL BLOOD GAS PO2 83 mmHg (75-100); CARBOXYHEMOGLOBIN 2.5 % THgb (0.0-6.9); HCO3- 24.1 (22-28); HGB O2 SAT 93.5 g/dF (94-100); Methhemoglobin 0.7 % (1.4-1.5); paO2 pAO1 0.13
[2017-11-25 18:29] LABS: ABG SITE lr; ARTERIAL BLOOD GAS PCO2 74 mmHg (35-45); ARTERIAL BLOOD GAS pH 7.12 (7.35-7.45)
[2017-11-25 18:30] LABS: ALLEN TEST OK? yes
--- NOTE | 2017-11-26 15:39 | ECHO ---
Transthoracic echocardiographic examination and color Doppler was done on 11/23/2017. INDICATION: Congestive heart failure, history of coronary artery disease. IMPRESSION: 1) GLOBAL LEFT VENTRICULAR HYPOKINESIA. EJECTION FRACTION BETWEEN 20 AND 25%. 2) MODERATELY DILATED LEFT VENTRICLE. 3) MILD MITRAL REGURGITATION. 4) MILD TRICUSPID REGURGITATION. RIGHT VENTRICULAR SYSTOLIC PRESSURE OF 41 MM OF MERCURY. 5) MILD PULMONIC INSUFFICIENCY 6) LEFT ATRIAL ENLARGEMENT. 7) MODERATELY DILATED RIGHT SIDE CHAMBERS. 8) LEFT VENTRICULAR DIASTOLIC DYSFUNCTION. The left ventricle is visualized and demonstrated global type of hypokinesia. Ejection fraction between 20 to 25%. The left ventricle is moderately dilated. The left ventricular thickness appears to be normal. The mitral valve is seen and this opens adequately. There is low flow characteristic suggestive of low cardiac output. Left atrium is mildly enlarged. The aortic valve is mildly sclerotic. The right side chambers are moderately dilated. There is mild tricuspid regurgitation. The right ventricular systolic pressure of 41 mm of [place]. There is also mild pulmonic insufficiency. Tissue Doppler study of the lateral mitral annulus suggestive of left ventricular diastolic dysfunction.
--- NOTE | 2017-11-29 14:10 | DS ---
DISCHARGE DIAGNOSES: 1) ACUTE ON CHRONIC RESPIRATORY FAILURE. 2) ACUTE BRONCHITIS. 3) ACUTE EXACERBATION OF CONGESTIVE HEART FAILURE. 4) ACUTE RENAL FAILURE. 5) SKILLED NURSING CURRENT USE OF ANTICOAGULATION. 6) DIABETES MELLITUS TYPE 2. 7) ISCHEMIC DILATED CARDIOMYOPATHY AND HISTORY OF STROKE. HOSPITAL COURSE: I saw the patient on 11/24/2017 as I was covering for Dr. Granda. He was having trouble with continued cough and swelling. He was starting to have poor urine output yesterday during the day. We consulted software engineering manager, Dr. Wallace, after I had tried Lasix 40 mg IV once and the patient has not had much urine output. Dr. Wallace ordered Bumex 2 mg IV once and he still did not have much urine output. In the morning his potassium was elevated. The patient also had problems overnight before his discharge as he had a Phelan catheter in and somehow in the middle of the night pulled this out and also fell and was found by the nurses on the floor. I asked them to have a Code Rapid called for this so that he could be evaluated emergently by the physician in the hospital. He had scans of his head, cervical spine done that did not reveal any acute problems. He also had a chest x-ray and left hand x-ray done without any acute findings. He continued to have poor output in the morning so I asked them to contact Dr. Wallace this morning and Dr. Wallace arranged for the patient to be transferred to [facility] because of the acute renal failure and his other multiple health problems. The patient was transferred by ACLS under Dr. Wallace's supervision. I did not do a physical exam on the patient. When he left I was just arriving and the ambulance was taking him on the gurney for transfer. The patient was discharged to [facility] for further specialist care of his multiple medical problems that were not improving here at [facility]. He usually sees a junior account manager, public relations intern and software engineering manager and all of those would be available at [facility] and were not available here over the weekend.
== END 2017-11-25 08:53 | disposition short-term general hospital (02) | DRG 189 ==
LOC: MED SURG 15:18 → OBSVTOIN 11-23 09:20
PROVIDERS: ADMIT Family Medicine; ATTEND Family Medicine
DX: J96.20 Acute and chronic respiratory failure, unspecified whether with hypoxia or hypercapnia (principal); J20.9 Acute bronchitis, unspecified; I50.9 Heart failure, unspecified; N18.9 Chronic kidney disease, unspecified; J44.1 Chronic obstructive pulmonary disease with (acute) exacerbation; E11.9 Type 2 diabetes mellitus without complications; Z79.01 Long term (current) use of anticoagulants; I25.5 Ischemic cardiomyopathy; I42.0 Dilated cardiomyopathy; Z86.73 Personal history of transient ischemic attack (TIA), and cerebral infarction without residual deficits
CPT/HCPCS: 36415; 36600; 70450; 71045; 72125; 73120; 80048; 80053; 81002; 82375; 82803; 82962; 83036; 83880; 85025; 85610; 87040; 87086; 93268; 93306; 94640; 94760; J0456; J0696; J1940; L0172; A9270-GY; G0378

== ENCOUNTER 2017-11-30 18:24 | Inpatient (IN) | payer MEDICARE ==
[2017-11-30] MEDS: DUONEB 0.5-3 MG/3 ml Neb IH SCH (22:10)
[2017-12-01] MEDS: DUONEB 0.5-3 MG/3 ml Neb IH SCH ×4 (06:40→19:33)
--- NOTE | 2017-12-01 09:33 | PCM.HP ---
History of Present Illness - Chief Complaint Chief Complaint: deconditioning arf fluid overload History of Present Illness: Mr.BARISH MILLER is a 77 year old male who was recently in [facility] with acute on chronic congestive heart failure (EF worsened form 26 to 20% on recent echo) and renal failure. He is feeling much better since hospitalization, started on entresto and appears euvolemic, he denies chest pain or dyspnea at this time but is weak and hasn't been walking for several days during the hospital stay. - Review of Systems Constitutional: Weakness, No Fever, No Chills Respiratory: No Cough, No Short Of Breath Cardiac: No Chest Pain, No Edema, No Syncope Abdominal/Gastrointestinal: No Abdominal Pain, No Nausea, No Vomiting, No Diarrhea Musculoskeletal: No Back Pain, No Neck Pain Skin: No Rash All Other Systems: Reviewed and Negative Medications & Allergies Home Medications: Home Medication List Furosemide 40 mg [Lasix 40 MG] 40 mg PO DAILY 11/07/12 [History Confirmed 11/30/17] Nitroglycerin 0.4 mg Tablet [Nitrostat 0.4 MG Tablet] 0.4 mg SL UD PRN 09/02 [History Confirmed 11/30/17] Aspirin 81 mg PO DAILY 01/16/15 [History Confirmed 12/01/17] Alprazolam 0.25 mg [xanAX 0.25 MG] 0.25 mg PO HS 03/29/15 [History Confirmed 12/01/17] Simvastatin [Zocor] 5 mg PO DAILY 03/29/15 [History Confirmed 12/01/17] Glimepiride 4 mg [Amaryl 4 mg] 4 mg PO DAILY 02/07/17 [History Confirmed 11/30/17] Metformin HCl 500 mg [Glucophage 500 MG] 1,000 mg PO BIDWM 02/07/17 [ History Confirmed 11/30/17] Tamsulosin HCl 0.4 mg [Flomax 0.4 MG] 0.4 mg PO DAILY 02/07/17 [History Confirmed 12/01/17] Warfarin Sodium 5 mg [Coumadin 5 MG] 5 mg PO MoWeFr@1800 #0 tablet [Rx Confirmed 11/30/17] Carvedilol 12.5 mg [Coreg 12.5 mg] 12.5 mg PO BID 07/18/17 [History Confirmed 12/01/17] Gabapentin 400 mg [Neurontin 400 MG] 800 mg PO TID 07/18/17 [History Confirmed 11/30/17] Warfarin Sodium 2.5 mg [Coumadin 2.5 MG] 2.5 mg PO WEEKLY 07/18/17 [ History Confirmed 11/30/17] Cholecalciferol (Vitamin D3) [Vitamin D] 2,000 unit PO QAM 11/22/17 [History Confirmed 11/30/17] Ropinirole HCl [Requip] 1 mg PO HS 11/22/17 [History Confirmed 12/01/17] Acetaminophen 500 mg [Tylenol Extra Strength 500 mg] 1,000 mg PO Q4H PRN PRN 11/30/17 [History Confirmed 11/30/17] Sacubitril/Valsartan [Entresto 24 mg-26 mg Tablet] 1 each PO BID 12/01/17 [ History Confirmed 12/01/17] Allergies/Adverse Reactions: Allergies Allergy/AdvReac Type Severity Reaction Status Date / Time ether Allergy Verified 07/18/17 10:00 BEE STING AdvReac Mild Uncoded 07/18/17 10:00 - Past Medical History Past Medical History: Yes Neurological History: Stroke ENT History: No Pertinent History Cardiac History: Arrhythmia, Coronary Artery Disease, Congestive Heart Failure, Myocardial Infarction (DE), Hypertension Respiratory History: Sleep Apnea, Other Endocrine Medical History: Diabetes Type II Musculoskelatal History: Other GI Medical History: No Pertinent History History: Other Pyscho-Social History: No Pertinent History Male Reproductive Disorders: No Pertinent History Comment: kidney stones 1967- 2011 - Past Surgical History Past Surgical History: Yes Neuro Surgical History: No Pertinent History Cardiac History: Cardiac Catheterization, Pacemaker, Internal Defibrillator Respiratory Surgery: Chest Surgery GI Surgical History: No Pertinent History Genitourinary Surgical Hx: Kidney Surgery Musculskeletal Surgical Hx: Orthopedic Surgery Male Surgical History: No Pertinent History Other Surgical History: 2 knee scopes right - Social History Smoking Status: Former smoker How long have you smoked: 30 yrs Exposure to second hand smoke: Yes Alcohol: Occasionally Drug Use: none - Physical Exam Vital Signs: Vital Signs - 24 hr Temp Pulse Resp BP Pulse Ox 12/01/17 09:14 92 H 18 93 L 12/01/17 07:15 97.6 F 88 20 118/74 96 11/30/17 22:10 94 H 18 96 11/30/17 21:06 98.0 F 95 H 28 H 117/72 96 Oxygen-Last 24 hours Oxygen Flowrate (L/min)-RT 3 General Appearance: no apparent distress Neurologic Exam: alert, oriented x 3, cooperative Eye Exam: PERRL/EOMI, eyes nml inspection Respiratory Exam: normal breath sounds, lungs clear, No respiratory distress Cardiovascular Exam: regular rate/rhythm, normal heart sounds, normal peripheral pulses Gastrointestinal/Abdomen Exam: soft, normal bowel sounds, No tenderness, No mass Extremity Exam: pedal edema (1+) Results - Labs Lab/Micro Results: Accuchecks Date 12/01/17 Time 07:30 Accucheck Value: 124 Accucheck Value: 199 Accuchecks Date 12/01/17 Time 07:30 Accucheck Value: 124 Accucheck Value: 199 - Other Procedures and Tests Respiratory Therapy 11/30/17 19:00 Respiratory Nebulizer QID 11/30/17 21:57 Oxygen NASAL CANNULA 3 lpm 11/30/17 21:58 BiPap/CPAP Assessment ROUTINE Assessment/Plan (1) Ischemic dilated cardiomyopathy Current Visit: No Status: Acute Assessment & Plan: continue current meds Code(s): I25.5 - ISCHEMIC CARDIOMYOPATHY; I42.0 - DILATED CARDIOMYOPATHY (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
[2017-12-01] MEDS ORDERED: Aplisol ID SCH (10:00)
[2017-12-01] MEDS ORDERED: Nitrostat 0.4 MG Tablet SL PRN (10:08)
[2017-12-01] MEDS: AMARYL 4 MG PO SCH (11:43)
[2017-12-01] MEDS: VITAMIN D PO SCH (11:43)
[2017-12-01] MEDS: Flomax 0.4 MG PO SCH (11:43)
[2017-12-01] MEDS: ECOTRIN 81 MG PO SCH (11:43)
[2017-12-01] MEDS: Neurontin 400 MG PO SCH ×3 (11:43→21:39)
[2017-12-01] MEDS: Lasix 40 MG PO SCH (11:43)
[2017-12-01] MEDS: COREG 12.5 MG PO SCH ×2 (11:43→21:40)
[2017-12-01] MEDS: NovoLOG Insulin SQ PRN (11:44)
[2017-12-01] MEDS: ENTRESTO 49 MG-51 MG TABLET PO SCH ×2 (11:45→21:40)
[2017-12-01] MEDS: Coumadin 5 MG PO SCH (17:21)
[2017-12-01] MEDS: Glucophage 500 MG PO SCH (17:21)
[2017-12-01] MEDS: Requip 0.5 MG PO SCH (21:39)
[2017-12-01] MEDS: Zocor 10MG PO SCH (21:39)
[2017-12-01] MEDS: xanAX 0.25 MG PO SCH (21:39)
[2017-12-01] MEDS: Sodium Chloride 0.9% 10 ML FLUSH Syringe IV SCH (21:45)
[2017-12-01] MEDS ORDERED: NON-FORMULARY ITEM (Ropinirole Hcl [Requip] 1 MG) PO SCH (22:00)
[2017-12-01] MEDS ORDERED: NON-FORMULARY ITEM (Sacubitril/Valsartan [Entresto 24 Mg-26 Mg Tablet] 1 EACH) PO SCH (22:00)
[2017-12-02] MEDS: Sodium Chloride 0.9% 10 ML FLUSH Syringe IV SCH ×3 (05:14→21:49)
[2017-12-02 05:45] LABS: BASOPHIL % 0.2 % (0.0-0.4); Basophil (Absolute #) 0.02 (0-0.4); Eosinophil % 6.5 % (0.00-5.0); Eosinophil (Absolute #) 0.54 (0-0.5); Granulocyte Absolute (ANC) 5.83 (1.4-6.9); Granulocytes % 70.3 % (36.0-66.0); Hematocrit 41.7 % (42-50); Hemoglobin 13.9 gm/dl (12.5-18.0); Lymphocyte (Absolute #) 1.29 (1.0-4.6); Lymphocytes % 15.5 % (24.0-44.0); Mean Cell Volume 97.7 fl (78-100); Mean Corpuscular Hemoglobin 32.6 pg (26-32); Mean Corpuscular Hgb Concent. 33.3 g/dl (32-36); Mean Platelet Volume 9.6 fl (6-9.5); Monocyte (Absolute #) 0.62 (0.0-1.3); Monocytes % 7.5 % (0.0-12.0); Platelet Count 120 K/mm3 (150-450); Red Blood Count 4.27 M/mm3 (4.1-5.6); Red Cell Distribution Width 14.9 % (11.5-14.0); White Blood Count 8.3 K/mm3 (4.0-10.5)
[2017-12-02 06:07] LABS: ANION GAP 9.7 MEQ/L (5-15); BLOOD UREA NITROGEN 30 mg/dL (9-20); CHLORIDE 95 mmol/L (98-107); Calcium 8.8 mg/dL (8.4-10.2); Carbon Dioxide 35 mmol/L (22-30); Creatinine 1 0.88 mg/dL (0.66-1.25); Glucose 104 mg/dL (74-106); Potassium 3.8 mmol/L (3.5-5.1); SODIUM 136 mmol/L (137-145)
[2017-12-02 06:29] LABS: INR 1.68 (0.8-3.0)
[2017-12-02] MEDS: DUONEB 0.5-3 MG/3 ml Neb IH SCH ×4 (07:38→19:45)
[2017-12-02] MEDS: Glucophage 500 MG PO SCH ×2 (09:06→17:13)
[2017-12-02] MEDS ORDERED: NON-FORMULARY ITEM (Aspirin [Aspirin] 81 MG) PO SCH (10:00)
[2017-12-02] MEDS ORDERED: NON-FORMULARY ITEM (Cholecalciferol (Vitamin D3) [Vitamin D] 2,000 UNIT) PO SCH (10:00)
[2017-12-02] MEDS ORDERED: NON-FORMULARY ITEM (Simvastatin [Zocor] 5 MG) PO SCH (10:00)
[2017-12-02] MEDS: VITAMIN D PO SCH (10:18)
[2017-12-02] MEDS: Neurontin 400 MG PO SCH ×3 (10:18→21:47)
[2017-12-02] MEDS: AMARYL 4 MG PO SCH (10:18)
[2017-12-02] MEDS: ECOTRIN 81 MG PO SCH (10:19)
[2017-12-02] MEDS: Flomax 0.4 MG PO SCH (10:19)
[2017-12-02] MEDS: Lasix 40 MG PO SCH (10:19)
[2017-12-02] MEDS: COREG 12.5 MG PO SCH ×2 (10:19→21:48)
[2017-12-02] MEDS: ENTRESTO 49 MG-51 MG TABLET PO SCH ×2 (10:19→21:48)
[2017-12-02] MEDS: Coumadin 5 MG PO SCH (17:13)
[2017-12-02] MEDS: Requip 0.5 MG PO SCH (21:48)
[2017-12-02] MEDS: xanAX 0.25 MG PO SCH (21:49)
[2017-12-02] MEDS: Zocor 10MG PO SCH (21:49)
[2017-12-03 06:28] LABS: INR 1.81 (0.8-3.0)
[2017-12-03] MEDS: DUONEB 0.5-3 MG/3 ml Neb IH SCH ×4 (06:31→19:31)
[2017-12-03] MEDS: Neurontin 400 MG PO SCH ×3 (08:05→21:12)
[2017-12-03] MEDS: Glucophage 500 MG PO SCH ×2 (08:05→16:27)
[2017-12-03] MEDS: COREG 12.5 MG PO SCH ×2 (08:05→21:12)
[2017-12-03] MEDS: AMARYL 4 MG PO SCH (08:05)
[2017-12-03] MEDS: VITAMIN D PO SCH (08:05)
[2017-12-03] MEDS: ECOTRIN 81 MG PO SCH (08:05)
[2017-12-03] MEDS: Lasix 40 MG PO SCH (08:05)
[2017-12-03] MEDS: Flomax 0.4 MG PO SCH (08:05)
[2017-12-03] MEDS: ENTRESTO 49 MG-51 MG TABLET PO SCH ×2 (08:06→21:13)
[2017-12-03] MEDS: Sodium Chloride 0.9% 10 ML FLUSH Syringe IV SCH ×2 (08:07→12:13)
--- NOTE | 2017-12-03 08:23 | PCM.NOTE ---
Date and Time: 12/03/17821 Subjective Assessment: patient ambulated in the hallway this morning, more stable on his feet he feels. denies chest pain or dyspnea Objective Exam General Appearance: no apparent distress, alert Respiratory Exam: normal breath sounds, lungs clear, No respiratory distress Cardiovascular Exam: regular rate/rhythm, normal heart sounds Gastrointestinal/Abdomen Exam: soft, No tenderness, No mass Extremity Exam: normal inspection, normal range of motion OBJECTIVE DATA Vital Signs: Vital Signs - 24 hr Temp Pulse Resp BP Pulse Ox 12/03/17 06:36 88 16 94 L 12/03/17 00:00 93/50 12/02/17 22:00 85 109/66 12/02/17 20:00 98.7 F 83 16 99/57 98 12/02/17 19:45 75 20 92 L 12/02/17 16:21 97.6 F 70 20 94/55 12/02/17 14:37 94 H 18 97 12/02/17 11:30 89 18 94 L 12/02/17 11:28 99 H 18 93 L Oxygen-Last 24 hours O2 Percentage 2 Liters = 28% O2 Percentage 3 Liters = 32% Pain Assessment - Last Documented Pain Intensity 5 Pain Scale Used 0-10 Pain Scale Intake and Output: Intake & Output 11/30/17 12/01/17 12/02/17 12/03/17 11:59 11:59 11:59 11:59 Intake Total 480 1190 850 Output Total 1000 1550 1775 Balance -520 -360 -925 Weight 90.3 kg 90.8 kg Lab Results: Accuchecks Date 12/03/17 Date 12/02/17 Date 12/02/17 Time 08:03 Time 16:18 Time 11:30 Accucheck Value: 139 Accucheck Value: 128 Accucheck Value: 138 Accucheck Value: 199 Lab Results-Last 24 Hours 12/03/17 Range/Units 05:50 PT 20.3 H (8.83-12.87) SECONDS INR 1.81 (0.8-3.0) Assessment/Plan (1) Ischemic dilated cardiomyopathy Current Visit: No Status: Acute Code(s): I25.5 - ISCHEMIC CARDIOMYOPATHY; I42.0 - DILATED CARDIOMYOPATHY (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
[2017-12-03] MEDS ORDERED: BENADRYL 50 MG/ML IV PRN ×2 (13:25→14:22)
[2017-12-03] MEDS: Coumadin 5 MG PO SCH (16:27)
[2017-12-03] MEDS: Requip 0.5 MG PO SCH (21:11)
[2017-12-03] MEDS: Zocor 10MG PO SCH (21:12)
[2017-12-03] MEDS: xanAX 0.25 MG PO SCH (21:12)
[2017-12-04 06:29] LABS: INR 1.96 (0.8-3.0)
[2017-12-04] MEDS: DUONEB 0.5-3 MG/3 ml Neb IH SCH (06:49)
[2017-12-04] MEDS ORDERED: DUONEB 0.5-3 MG/3 ml Neb IH PRN (08:08)
[2017-12-04] MEDS: Glucophage 500 MG PO SCH ×2 (08:34→16:54)
[2017-12-04] MEDS: Lasix 40 MG PO SCH (08:34)
[2017-12-04] MEDS: VITAMIN D PO SCH (08:34)
[2017-12-04] MEDS: COREG 12.5 MG PO SCH ×2 (08:34→21:52)
[2017-12-04] MEDS: AMARYL 4 MG PO SCH (08:34)
[2017-12-04] MEDS: Neurontin 400 MG PO SCH ×3 (08:34→21:51)
[2017-12-04] MEDS: Flomax 0.4 MG PO SCH (08:34)
[2017-12-04] MEDS: ECOTRIN 81 MG PO SCH (08:35)
[2017-12-04] MEDS: ENTRESTO 49 MG-51 MG TABLET PO SCH ×2 (08:35→21:53)
[2017-12-04] MEDS: Sodium Chloride 0.9% 10 ML FLUSH Syringe IV SCH ×3 (12:57→14:49)
[2017-12-04] MEDS: Coumadin 2.5 MG PO SCH (17:04)
[2017-12-04] MEDS: Zocor 10MG PO SCH (21:52)
[2017-12-04] MEDS: xanAX 0.25 MG PO SCH (21:52)
[2017-12-04] MEDS: Requip 0.5 MG PO SCH (21:52)
[2017-12-05 06:17] LABS: INR 2.24 (0.8-3.0)
[2017-12-05] MEDS: Glucophage 500 MG PO SCH ×2 (08:08→17:58)
[2017-12-05] MEDS: Neurontin 400 MG PO SCH ×3 (10:39→21:18)
[2017-12-05] MEDS: VITAMIN D PO SCH (10:39)
[2017-12-05] MEDS: ECOTRIN 81 MG PO SCH (10:39)
[2017-12-05] MEDS: Flomax 0.4 MG PO SCH ×2 (10:39→21:29)
[2017-12-05] MEDS: COREG 12.5 MG PO SCH ×2 (10:39→21:20)
[2017-12-05] MEDS: Lasix 40 MG PO SCH (10:39)
[2017-12-05] MEDS: AMARYL 4 MG PO SCH (10:39)
[2017-12-05] MEDS: ENTRESTO 49 MG-51 MG TABLET PO SCH ×2 (10:39→21:20)
--- NOTE | 2017-12-05 17:01 | PCM.NOTE ---
Date and Time: 12/05/17 1700 Subjective Assessment: doing well today, ambulating better since admission. no chest pain or dyspnea Objective Exam General Appearance: no apparent distress Neurologic Exam: alert, oriented x 3, facial droop Skin Exam: normal color, warm, dry Eye Exam: PERRL, EOMI, eyes nml inspection Respiratory Exam: normal breath sounds, lungs clear, No respiratory distress Cardiovascular Exam: regular rate/rhythm, normal heart sounds Gastrointestinal/Abdomen Exam: soft, No tenderness, No mass OBJECTIVE DATA Vital Signs: Vital Signs - 24 hr Temp Pulse Resp BP Pulse Ox 12/05/17 07:39 97.4 F 85 20 111/72 95 12/05/17 07:00 88 18 95 12/04/17 20:00 97.8 F 74 18 95/53 96 12/04/17 19:54 74 20 94 L Oxygen-Last 24 hours O2 Percentage 3 Liters = 32% O2 Percentage 3 Liters = 32% Pain Assessment - Last Documented Pain Intensity 0 Pain Scale Used 0-10 Pain Scale Intake and Output: Intake & Output 12/03/17 12/04/17 12/05/17 12/06/17 11:59 11:59 11:59 11:59 Intake Total 850 920 890 60 Output Total 1775 2539 1600 700 Balance -925 -1055 -710 -640 Weight 90.8 kg 93.9 kg 92.6 kg Lab Results: Accuchecks Date 12/05/17 Date 12/05/17 Date 12/05/17 Date 12/05/17 Date 12/05/17 Date 12/04/17 Time 11:30 Time 07:30 Time 07:00 Accucheck Value: 250 Accucheck Value: 112 Accucheck Value: 112 Accucheck Value: 102 Accucheck Value: 102 Accucheck Value: 159 Lab Results-Last 24 Hours 12/05/17 Range/Units 05:20 PT 25.1 H (8.83-12.87) SECONDS INR 2.24 (0.8-3.0) Assessment/Plan (1) Ischemic dilated cardiomyopathy Current Visit: No Status: Acute Code(s): I25.5 - ISCHEMIC CARDIOMYOPATHY; I42.0 - DILATED CARDIOMYOPATHY (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 Code(s): R53.1 - WEAKNESS (4) Coronary arteriosclerosis Current Visit: No Status: Chronic (5) Diabetes Current Visit: No Status: Chronic Code(s): E11.9 - TYPE 2 DIABETES MELLITUS WITHOUT COMPLICATIONS
[2017-12-05] MEDS: Coumadin 5 MG PO SCH (17:58)
[2017-12-05] MEDS: Requip 0.5 MG PO SCH (21:18)
[2017-12-05] MEDS: TYLENOL 325 MG PO PRN (21:18)
[2017-12-05] MEDS: Zocor 10MG PO SCH (21:19)
[2017-12-05] MEDS: xanAX 0.25 MG PO SCH (21:19)
[2017-12-06 05:58] LABS: BASOPHIL % 0.3 % (0.0-0.4); Basophil (Absolute #) 0.02 (0-0.4); Eosinophil % 6.1 % (0.00-5.0); Eosinophil (Absolute #) 0.38 (0-0.5); Granulocyte Absolute (ANC) 3.74 (1.4-6.9); Hematocrit 40.5 % (42-50); Hemoglobin 13.2 gm/dl (12.5-18.0); Lymphocyte (Absolute #) 1.58 (1.0-4.6); Lymphocytes % 25.4 % (24.0-44.0); Mean Cell Volume 98.1 fl (78-100); Mean Corpuscular Hgb Concent. 32.6 g/dl (32-36); Mean Platelet Volume 10.2 fl (6-9.5); Monocyte (Absolute #) 0.51 (0.0-1.3); Monocytes % 8.2 % (0.0-12.0); Platelet Count 137 K/mm3 (150-450); Red Blood Count 4.13 M/mm3 (4.1-5.6); Red Cell Distribution Width 14.9 % (11.5-14.0); White Blood Count 6.2 K/mm3 (4.0-10.5)
[2017-12-06 06:00] LABS: INR 2.07 (0.8-3.0)
[2017-12-06 06:04] LABS: ANION GAP 11.3 MEQ/L (5-15); BLOOD UREA NITROGEN 24 mg/dL (9-20); CHLORIDE 99 mmol/L (98-107); Calcium 9.6 mg/dL (8.4-10.2); Carbon Dioxide 32 mmol/L (22-30); Glucose 99 mg/dL (74-106); Potassium 4.7 mmol/L (3.5-5.1); SODIUM 138 mmol/L (137-145)
[2017-12-06 06:12] LABS: NT PRO BNP 4640 pg/mL (0-1800)
[2017-12-06] MEDS: Glucophage 500 MG PO SCH ×2 (08:11→17:55)
[2017-12-06] MEDS: Lasix 40 MG PO SCH (10:36)
[2017-12-06] MEDS: Neurontin 400 MG PO SCH ×3 (10:36→21:14)
[2017-12-06] MEDS: VITAMIN D PO SCH (10:36)
[2017-12-06] MEDS: COREG 12.5 MG PO SCH ×2 (10:36→21:15)
[2017-12-06] MEDS: AMARYL 4 MG PO SCH (10:37)
[2017-12-06] MEDS: ENTRESTO 49 MG-51 MG TABLET PO SCH ×2 (10:37→21:16)
[2017-12-06] MEDS: ECOTRIN 81 MG PO SCH (10:37)
[2017-12-06] MEDS: Coumadin 2.5 MG PO SCH (17:55)
[2017-12-06] MEDS: TYLENOL 325 MG PO PRN (21:14)
[2017-12-06] MEDS: Requip 0.5 MG PO SCH (21:14)
[2017-12-06] MEDS: Flomax 0.4 MG PO SCH (21:14)
[2017-12-06] MEDS: Zocor 10MG PO SCH (21:15)
[2017-12-06] MEDS: xanAX 0.25 MG PO SCH (21:15)
[2017-12-07 06:07] LABS: INR 1.96 (0.8-3.0)
[2017-12-07] MEDS: AMARYL 4 MG PO SCH (08:11)
[2017-12-07] MEDS: Glucophage 500 MG PO SCH ×2 (08:11→17:34)
[2017-12-07] MEDS: ECOTRIN 81 MG PO SCH (08:11)
[2017-12-07] MEDS: Neurontin 400 MG PO SCH ×3 (08:11→22:24)
[2017-12-07] MEDS: COREG 12.5 MG PO SCH ×2 (08:12→22:24)
[2017-12-07] MEDS: ENTRESTO 49 MG-51 MG TABLET PO SCH ×2 (08:12→22:24)
[2017-12-07] MEDS: VITAMIN D PO SCH (08:12)
[2017-12-07] MEDS: Lasix 40 MG PO SCH (08:12)
--- NOTE | 2017-12-07 08:19 | PCM.NOTE ---
Date and Time: 12/07/17 0817 Subjective Assessment: doing well at this time, c/o swelling in the lower extremities but no dyspnea. participating in therapy Objective Exam General Appearance: no apparent distress, alert Skin Exam: normal color, warm, dry Respiratory Exam: normal breath sounds, lungs clear, No respiratory distress Cardiovascular Exam: regular rate/rhythm, normal heart sounds Gastrointestinal/Abdomen Exam: soft, No tenderness, No mass Extremity Exam: pedal edema OBJECTIVE DATA Vital Signs: Vital Signs - 24 hr Temp Pulse Resp BP Pulse Ox 12/07/17 07:30 97.9 F 88 18 102/68 98 12/07/17 07:24 76 20 98 12/06/17 19:53 82 20 97 12/06/17 19:49 97.8 F 81 20 99/58 98 Oxygen-Last 24 hours O2 Percentage 2 Liters = 28% Pain Assessment - Last Documented Pain Intensity 0 Pain Scale Used FLACC Intake and Output: Intake & Output 12/04/17 12/05/17 12/06/17 12/07/17 11:59 11:59 11:59 11:59 Intake Total 920 890 340 210 Output Total 1975 1600 1350 2165 Balance -1055 -710 -1010 -1955 Weight 93.9 kg 92.6 kg 93.1 kg 92.9 kg Lab Results: Accuchecks Date 12/06/17 Date 12/06/17 Date 12/06/17 Date 12/06/17 Time 22:00 Time 16:30 Time 11:30 Time 07:30 Accucheck Value: 104 Accucheck Value: 92 Accucheck Value: 114 Accucheck Value: 101 Lab Results-Last 24 Hours 12/07/17 Range/Units 05:30 PT 21.9 H (8.83-12.87) SECONDS INR 1.96 (0.8-3.0) Assessment/Plan (1) Ischemic dilated cardiomyopathy Current Visit: No Status: Acute Assessment & Plan: will give an extra dose of lasix Code(s): I25.5 - ISCHEMIC CARDIOMYOPATHY; I42.0 - DILATED CARDIOMYOPATHY (2) [facility] current use of anticoagulant Current Visit: No Status: Acute Code(s): Z79.01 - TOP CLEANER (CURRENT) USE OF ANTICOAGULANTS (3) Weakness Current Visit: No Status: Acute Onset Date: ~11/22/17 Code(s): R53.1 - WEAKNESS (4) Coronary arteriosclerosis Current Visit: No Status: Chronic (5) Diabetes Current Visit: No Status: Chronic Code(s): E11.9 - TYPE 2 DIABETES MELLITUS WITHOUT COMPLICATIONS
[2017-12-07] MEDS ORDERED: Lasix 40 MG PO ONE (12:00)
[2017-12-07] MEDS: Coumadin 5 MG PO SCH (17:34)
[2017-12-07] MEDS: TYLENOL 325 MG PO PRN (22:24)
[2017-12-07] MEDS: Flomax 0.4 MG PO SCH (22:24)
[2017-12-07] MEDS: xanAX 0.25 MG PO SCH (22:24)
[2017-12-07] MEDS: Requip 0.5 MG PO SCH (22:24)
[2017-12-07] MEDS: Zocor 10MG PO SCH (22:25)
[2017-12-08 06:55] LABS: INR 1.96 (0.8-3.0)
[2017-12-08] MEDS: Glucophage 500 MG PO SCH ×2 (10:07→16:47)
[2017-12-08] MEDS: COREG 12.5 MG PO SCH ×2 (10:07→22:37)
[2017-12-08] MEDS: Lasix 40 MG PO SCH (10:08)
[2017-12-08] MEDS: AMARYL 4 MG PO SCH (10:08)
[2017-12-08] MEDS: ECOTRIN 81 MG PO SCH (10:08)
[2017-12-08] MEDS: Neurontin 400 MG PO SCH ×3 (10:08→22:37)
[2017-12-08] MEDS: VITAMIN D PO SCH (10:08)
[2017-12-08] MEDS: ENTRESTO 49 MG-51 MG TABLET PO SCH ×2 (10:18→22:35)
[2017-12-08] MEDS: NovoLOG Insulin SQ PRN (11:36)
[2017-12-08] MEDS: Coumadin 5 MG PO SCH (16:47)
[2017-12-08] MEDS: TYLENOL 325 MG PO PRN (22:36)
[2017-12-08] MEDS: xanAX 0.25 MG PO SCH (22:36)
[2017-12-08] MEDS: Requip 0.5 MG PO SCH (22:36)
[2017-12-08] MEDS: Flomax 0.4 MG PO SCH (22:37)
[2017-12-08] MEDS: Zocor 10MG PO SCH (22:37)
[2017-12-09 06:28] LABS: INR 2.18 (0.8-3.0)
[2017-12-09] MEDS: ECOTRIN 81 MG PO SCH (09:58)
[2017-12-09] MEDS: COREG 12.5 MG PO SCH ×2 (09:58→21:58)
[2017-12-09] MEDS: Neurontin 400 MG PO SCH ×3 (09:58→21:58)
[2017-12-09] MEDS: VITAMIN D PO SCH (09:58)
[2017-12-09] MEDS: Lasix 40 MG PO SCH (09:58)
[2017-12-09] MEDS: Glucophage 500 MG PO SCH ×2 (09:58→17:41)
[2017-12-09] MEDS: AMARYL 4 MG PO SCH (09:58)
[2017-12-09] MEDS: ENTRESTO 49 MG-51 MG TABLET PO SCH ×2 (09:58→21:57)
[2017-12-09] MEDS: Coumadin 5 MG PO SCH (17:42)
[2017-12-09] MEDS: Requip 0.5 MG PO SCH (21:58)
[2017-12-09] MEDS: xanAX 0.25 MG PO SCH (21:58)
[2017-12-09] MEDS: TYLENOL 325 MG PO PRN (21:58)
[2017-12-09] MEDS: Zocor 10MG PO SCH (21:59)
[2017-12-09] MEDS: Flomax 0.4 MG PO SCH (21:59)
[2017-12-10 06:07] LABS: INR 2.64 (0.8-3.0)
[2017-12-10] MEDS: Glucophage 500 MG PO SCH ×2 (07:49→17:49)
--- NOTE | 2017-12-10 08:08 | PCM.NOTE ---
Date and Time: 12/10/17 0807 Subjective Assessment: patient is feeling well, no chest pain or shortness of breath. has some mild pedal edema, ambulating well Objective Exam General Appearance: no apparent distress, alert Skin Exam: normal color, warm, dry Respiratory Exam: normal breath sounds, lungs clear, No respiratory distress Cardiovascular Exam: regular rate/rhythm, normal heart sounds Gastrointestinal/Abdomen Exam: soft, No tenderness, No mass OBJECTIVE DATA Vital Signs: Vital Signs - 24 hr Temp Pulse Resp BP Pulse Ox 12/10/17 07:19 70 16 96 12/10/17 07:17 97.5 F 80 20 93/56 94 L 12/09/17 19:42 97.7 F 74 16 99/57 98 12/09/17 19:28 74 16 98 Oxygen-Last 24 hours O2 Percentage 2 Liters = 28% O2 Percentage 2 Liters = 28% Pain Assessment - Last Documented Pain Intensity 0 Pain Scale Used 0-10 Pain Scale Intake and Output: Intake & Output 12/07/17 12/08/17 12/09/17 12/10/17 11:59 11:59 11:59 11:59 Intake Total 330 1260 960 690 Output Total 2165 2250 900 1950 Balance -1835 -990 60 -1260 Weight 92.9 kg 93 kg 92.8 kg 93.3 kg Lab Results: Accuchecks Accucheck Value: 104 Accucheck Value: 128 Accucheck Value: 126 Lab Results-Last 24 Hours 12/10/17 Range/Units 05:32 PT 29.6 H (8.83-12.87) SECONDS INR 2.64 (0.8-3.0) Assessment/Plan (1) Ischemic dilated cardiomyopathy Current Visit: No Status: Acute Assessment & Plan: euvolemic, decrease carvedilol secondary to hypotension, if persists may need to decrease entresto as well Code(s): I25.5 - ISCHEMIC CARDIOMYOPATHY; I42.0 - DILATED CARDIOMYOPATHY (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
[2017-12-10] MEDS: Lasix 40 MG PO SCH (09:20)
[2017-12-10] MEDS: ENTRESTO 49 MG-51 MG TABLET PO SCH ×2 (09:20→22:45)
[2017-12-10] MEDS: ECOTRIN 81 MG PO SCH (09:20)
[2017-12-10] MEDS: AMARYL 4 MG PO SCH (09:20)
[2017-12-10] MEDS: Neurontin 400 MG PO SCH ×3 (09:20→22:40)
[2017-12-10] MEDS: VITAMIN D PO SCH (09:20)
[2017-12-10] MEDS: Coreg 6.25 MG PO SCH ×2 (09:23→22:43)
[2017-12-10] MEDS: Coumadin 5 MG PO SCH (17:49)
[2017-12-10] MEDS: xanAX 0.25 MG PO SCH (22:40)
[2017-12-10] MEDS: Requip 0.5 MG PO SCH (22:40)
[2017-12-10] MEDS: Zocor 10MG PO SCH (22:41)
[2017-12-10] MEDS: Flomax 0.4 MG PO SCH (22:45)
[2017-12-11 05:52] LABS: INR 2.34 (0.8-3.0)
[2017-12-11] MEDS: Glucophage 500 MG PO SCH ×2 (08:07→17:07)
[2017-12-11] MEDS: AMARYL 4 MG PO SCH (10:59)
[2017-12-11] MEDS: Lasix 40 MG PO SCH (11:00)
[2017-12-11] MEDS: ECOTRIN 81 MG PO SCH (11:00)
[2017-12-11] MEDS: VITAMIN D PO SCH (11:00)
[2017-12-11] MEDS: ENTRESTO 49 MG-51 MG TABLET PO SCH ×2 (11:01→21:05)
[2017-12-11] MEDS: Coreg 6.25 MG PO SCH ×2 (11:01→21:01)
[2017-12-11] MEDS: Neurontin 400 MG PO SCH ×3 (11:04→21:04)
[2017-12-11] MEDS: NovoLOG Insulin SQ PRN (17:05)
[2017-12-11] MEDS: Coumadin 2.5 MG PO SCH (17:07)
[2017-12-11] MEDS: xanAX 0.25 MG PO SCH (21:02)
[2017-12-11] MEDS: Zocor 10MG PO SCH (21:02)
[2017-12-11] MEDS: Flomax 0.4 MG PO SCH (21:02)
[2017-12-11] MEDS: Requip 0.5 MG PO SCH (21:05)
[2017-12-12 06:21] LABS: INR 2.21 (0.8-3.0)
[2017-12-12] MEDS: Glucophage 500 MG PO SCH ×2 (09:14→17:05)
[2017-12-12] MEDS: VITAMIN D PO SCH (09:14)
[2017-12-12] MEDS: ECOTRIN 81 MG PO SCH (09:15)
[2017-12-12] MEDS: ENTRESTO 49 MG-51 MG TABLET PO SCH ×2 (09:15→22:19)
[2017-12-12] MEDS: Lasix 40 MG PO SCH (09:15)
[2017-12-12] MEDS: AMARYL 4 MG PO SCH (09:15)
[2017-12-12] MEDS: Coreg 6.25 MG PO SCH ×2 (09:15→22:18)
[2017-12-12] MEDS: Neurontin 400 MG PO SCH ×3 (09:15→22:20)
[2017-12-12] MEDS ORDERED: Aplisol ID SCH (10:00)
[2017-12-12] MEDS: Coumadin 5 MG PO SCH (17:05)
[2017-12-12] MEDS: Zocor 10MG PO SCH (22:20)
[2017-12-12] MEDS: Requip 0.5 MG PO SCH (22:20)
[2017-12-12] MEDS: Flomax 0.4 MG PO SCH (22:20)
[2017-12-12] MEDS: xanAX 0.25 MG PO SCH (22:20)
[2017-12-12] MEDS: TYLENOL 325 MG PO PRN (22:21)
[2017-12-13 06:01] LABS: INR 1.81 (0.8-3.0)
[2017-12-13] MEDS: Glucophage 500 MG PO SCH ×2 (07:59→16:54)
[2017-12-13] MEDS: Coreg 6.25 MG PO SCH ×2 (09:18→22:19)
[2017-12-13] MEDS: AMARYL 4 MG PO SCH (09:18)
[2017-12-13] MEDS: Neurontin 400 MG PO SCH ×3 (09:18→22:19)
[2017-12-13] MEDS: VITAMIN D PO SCH (09:18)
[2017-12-13] MEDS: Lasix 40 MG PO SCH (09:18)
[2017-12-13] MEDS: ECOTRIN 81 MG PO SCH (09:18)
[2017-12-13] MEDS: ENTRESTO 49 MG-51 MG TABLET PO SCH ×2 (09:19→22:21)
[2017-12-13] MEDS: Coumadin 2.5 MG PO SCH (16:54)
[2017-12-13] MEDS: Requip 0.5 MG PO SCH (22:19)
[2017-12-13] MEDS: Flomax 0.4 MG PO SCH (22:19)
[2017-12-13] MEDS: xanAX 0.25 MG PO SCH (22:19)
[2017-12-13] MEDS: Zocor 10MG PO SCH (22:20)
[2017-12-13] MEDS: TYLENOL 325 MG PO PRN (22:20)
[2017-12-14 06:07] LABS: ANION GAP 12.5 MEQ/L (5-15); BLOOD UREA NITROGEN 25 mg/dL (9-20); CHLORIDE 103 mmol/L (98-107); Calcium 9.2 mg/dL (8.4-10.2); Carbon Dioxide 27 mmol/L (22-30); Creatinine 1 0.89 mg/dL (0.66-1.25); Glucose 111 mg/dL (74-106); Potassium 4.2 mmol/L (3.5-5.1); SODIUM 138 mmol/L (137-145)
[2017-12-14 06:25] LABS: INR 1.86 (0.8-3.0)
[2017-12-14 07:28] VITALS: BP 123/65
[2017-12-14 07:31] VITALS: PULSE 70; O2SAT 95
[2017-12-14] MEDS: VITAMIN D PO SCH (07:49)
[2017-12-14] MEDS: Lasix 40 MG PO SCH (07:49)
[2017-12-14] MEDS: Glucophage 500 MG PO SCH (07:49)
[2017-12-14] MEDS: Neurontin 400 MG PO SCH (07:49)
[2017-12-14] MEDS: Coreg 6.25 MG PO SCH (07:49)
[2017-12-14] MEDS: ECOTRIN 81 MG PO SCH (07:49)
[2017-12-14] MEDS: AMARYL 4 MG PO SCH (07:49)
[2017-12-14] MEDS: ENTRESTO 49 MG-51 MG TABLET PO SCH (07:50)
--- NOTE | 2017-12-14 08:48 | PCM.DS ---
Discharge Summary Date of Admission: 11/30/17 19:53 Admitting Physician: EVE HER Primary Care Provider: EVE HER Allergies Allergies ether Allergy (Verified 07/18/17 10:00) BEE STING Adverse Reaction (Mild, Uncoded 07/18/17 10:00) Hospital Summary - Hospital Course Hospital Course: patient was here for swinbed stay, admitted after chf exacerbation and kidney failure, has significant cardiomyopathy with low EF 20-25%. he has progressed with therapy, going home on hospice per family request. - Vitals & Intake/Output Vital Signs: Vital Signs Temperature 97.5 F 12/14/17 07:00 Pulse Rate 70 12/14/17 07:30 Respiratory Rate 18 12/14/17 07:30 Blood Pressure 123/65 12/14/17 07:00 O2 Sat by Pulse Oximetry 95 12/14/17 07:30 Oxygen-Last Documented O2 Percentage 3 Liters = 32% Intake & Output: Intake & Output 12/11/17 12/12/17 12/13/17 12/14/17 11:59 11:59 11:59 11:59 Intake Total 960 390 960 240 Output Total 600 1825 6660 1479 Balance 360 -3492 -120 1233 Weight 94.4 kg 91.9 kg 93.1 kg 92.9 kg - Lab Result Diagrams: 12/06/17 05:05 12/14/17 05:45 Lab Results-Last 24 Hrs: Accuchecks Date 12/14/17 Date 12/13/17 Time 07:23 Time 22:00 Accucheck Value: 97 Accucheck Value: 97 Accucheck Value: 94 Accucheck Value: 166 Lab Results-Last 24 Hours 12/13/17 12/14/17 12/14/17 Range/Units 05:35 05:45 05:45 PT 20.3 H 20.8 H (8.83-12.87) SECONDS INR 1.81 1.86 (0.8-3.0) Sodium 138 (137-145) mmol/L Potassium 4.2 (3.5-5.1) mmol/L Chloride 103 (98-107) mmol/L Carbon Dioxide 27 (22-30) mmol/L Anion Gap 12.5 (5-15) MEQ/L BUN 25 H (9-20) mg/dL Creatinine 0.89 (0.66-1.25) mg/dL Estimated GFR > 60.0 ML/MIN Glucose 111 H (74-106) mg/dL Calcium 9.2 (8.4-10.2) mg/dL Micro Results-Entire Visit: Accuchecks Date 12/14/17 Date 12/13/17 Time 07:23 Time 22:00 Accucheck Value: 97 Accucheck Value: 97 Accucheck Value: 94 Accucheck Value: 166 - Procedures and Test Procedures and Tests throughout Hospitalization: Therapy Orders & Screens 11/30/17 19:00 Respiratory Nebulizer QID Comment: EMELYN QID 11/30/17 21:41 PT Eval & Treat ( Order) Reason for Eval:: reconditioning as per pt Diagnosis: deconditioning arf fluid overload 11/30/17 21:57 Oxygen NASAL CANNULA 3 lpm Comment: HOME O2 AT 3L Diagnosis: deconditioning arf fluid overload Respiratory Therapy Consult ROUTINE Comment: Reason For Exam: Diagnosis: deconditioning arf fluid overload 11/30/17 21:58 BiPap/CPAP Assessment ROUTINE Comment: HOME CPAP [id number] WITH 3L O2 Diagnosis: deconditioning arf fluid overload 11/30/17 22:08 RT Screen per Nursing Assess ONCE Comment: Protocol Order Physician Instructions: Greater than 3 points order RT Admission Screen Reason For Exam: Triggered on Admission Diagnosis: deconditioning arf fluid overload Diagnosis: deconditioning arf fluid overload Pneumonia: No Home O2: Yes Asthma: No CHF: Yes Home CPAP/BIPAP: Yes Home Nebs/MDI: No Total Points: 13 12/04/17 11:00 Respiratory Nebulizer Comment: MARCELO Diagnosis: deconditioning arf fluid overload Discharge Exam General Appearance: no apparent distress, alert Skin Exam: normal color, warm, dry Respiratory Exam: normal breath sounds, lungs clear, No respiratory distress Cardiovascular Exam: regular rate/rhythm, normal heart sounds Gastrointestinal/Abdomen Exam: soft, No tenderness, No mass Extremity Exam: normal inspection, normal range of motion Final Diagnosis/Problem List - Final Discharge Diagnosis/Problem (1) Ischemic dilated cardiomyopathy Current Visit: No Status: Acute (2) senior living current use of anticoagulant Current Visit: No Status: Acute (3) Weakness Current Visit: No Status: Acute Onset Date: ~11/22/17 (4) Coronary arteriosclerosis Current Visit: No Status: Chronic (5) Diabetes Current Visit: No Status: Chronic - Discharge Disposition: Home, Self-Care Condition: Stable Prescriptions: New Carvedilol 6.25 mg [Coreg 6.25 MG] 6.25 mg PO BID #60 tablet Continue Furosemide 40 mg [Lasix 40 MG] 40 mg PO DAILY Nitroglycerin 0.4 mg Tablet [Nitrostat 0.4 MG Tablet] 0.4 mg SL UD PRN PRN Reason: Chest Pain Aspirin 81 mg PO DAILY Alprazolam 0.25 mg [xanAX 0.25 MG] 0.25 mg PO HS Simvastatin [Zocor] 5 mg PO DAILY Glimepiride 4 mg [Amaryl 4 mg] 4 mg PO DAILY Tamsulosin HCl 0.4 mg [Flomax 0.4 MG] 0.4 mg PO DAILY Metformin HCl 500 mg [Glucophage 500 MG] 1,000 mg PO BIDWM Warfarin Sodium 5 mg [Coumadin 5 MG] 5 mg PO MoWeFr@1800 #0 tablet Warfarin Sodium 2.5 mg [Coumadin 2.5 MG] 2.5 mg PO WEEKLY Gabapentin 400 mg [Neurontin 400 MG] 800 mg PO TID Cholecalciferol (Vitamin D3) [Vitamin D] 2,000 unit PO QAM Ropinirole HCl [Requip] 1 mg PO HS Acetaminophen 500 mg [Tylenol Extra Strength 500 mg] 1,000 mg PO Q4H PRN PRN PRN Reason: Pain Sacubitril/Valsartan [Entresto 24 mg-26 mg Tablet] 1 each PO BID Discontinued Carvedilol 12.5 mg [Coreg 12.5 mg] 12.5 mg PO BID Follow up with: RAVI ARCOS [ACTIVE STAFF] - 12/20/17 10:45 am ([facility]) SAILAJA ROSA [ACTIVE STAFF] - 12/27/17 2:45 pm ([facility]) NAYAN WALLACE [CONSULTING PHYSICIAN] - 01/07/18 10:00 am (Obtain CBC, CMP and UA 2 days before follow up with Dr. Wallace at [facility])
== END 2017-12-14 11:00 | disposition hospice, home (50) | DRG 303 ==
LOC: MED SURG 19:53
PROVIDERS: ADMIT Family Medicine; ATTEND Family Medicine
DX: I25.5 Ischemic cardiomyopathy (principal); I42.0 Dilated cardiomyopathy; R53.1 Weakness; I25.10 Atherosclerotic heart disease of native coronary artery without angina pectoris; E11.9 Type 2 diabetes mellitus without complications; Z79.4 Long term (current) use of insulin; I50.9 Heart failure, unspecified; I10 Essential (primary) hypertension; G47.30 Sleep apnea, unspecified; Z79.01 Long term (current) use of anticoagulants; Z79.899 Other long term (current) drug therapy; I25.2 Old myocardial infarction; Z95.810 Presence of automatic (implantable) cardiac defibrillator; Z87.891 Personal history of nicotine dependence
CPT/HCPCS: 36415; 80048; 82962; 83735; 83880; 85025; 85610; 94150; 94640; 94760; 97110-GP; A9270-GY

== ENCOUNTER 2018-11-02 08:28 | Emergency (ER) | payer MEDICARE | END 2018-11-02 10:31 | disposition home or self-care (01) | LOC: ED 08:28 ==

== ENCOUNTER 2018-12-13 20:36 | Emergency (ER) | payer MEDICARE ==
[2018-12-13 21:43] LABS: BASOPHIL % 0.1 % (0.0-0.4); Basophil (Absolute #) 0.01 (0-0.4); Eosinophil % 0.9 % (0.00-5.0); Eosinophil (Absolute #) 0.09 (0-0.5); Granulocyte Absolute (ANC) 8.27 (1.4-6.9); Granulocytes % 81.4 % (36.0-66.0); Hematocrit 40.4 % (42-50); Hemoglobin 13.6 gm/dl (12.5-18.0); Lymphocyte (Absolute #) 1.01 (1.0-4.6); Mean Cell Volume 97.8 fl (78-100); Mean Corpuscular Hemoglobin 32.9 pg (26-32); Mean Corpuscular Hgb Concent. 33.7 g/dl (32-36); Mean Platelet Volume 9.9 fl (6-9.5); Monocyte (Absolute #) 0.77 (0.0-1.3); Monocytes % 7.6 % (0.0-12.0); Platelet Count 144 K/mm3 (150-450); Red Blood Count 4.13 M/mm3 (4.1-5.6); Red Cell Distribution Width 13.6 % (11.5-14.0); White Blood Count 10.2 K/mm3 (4.0-10.5)
[2018-12-13 22:06] LABS: ANION GAP 15.6 MEQ/L (5-15); BILIRUBIN,TOTAL 0.9 mg/dL (0.2-1.3); Calcium 9.3 mg/dL (8.4-10.2); Creatinine 1 1.28 mg/dL (0.66-1.25); Potassium 4.5 mmol/L (3.5-5.1); Total Protein 7.4 g/dL (6.3-8.2)
[2018-12-13 22:09] LABS: ALBUMIN 3.9 g/dL (3.5-5.0)
[2018-12-14] MEDS ORDERED: Vancomycin 1GM/ Ns 250ML*** 1 GM/250 ML IVPB IV ONE (00:51)
[2018-12-14] MEDS ORDERED: Zosyn 3.375GM/100 Ml D5W 3.375 GM/100 ML IVPB IV ONE (00:58)
[2018-12-14] MEDS: Zosyn 3.375GM/100 Ml D5W 3.375 GM/100 ML IVPB IV STA ×2 (01:00→01:39)
--- NOTE | 2018-12-14 01:07 | ERPHSYRPT ---
- History of Present Illness Source: patient Exam Limitations: no limitations Patient Subjective Stated Complaint: pt states he woke up with swelling and pain in his rt knee. states swelling has increased and his pain has increased since. states he is unable to walk Triage Nursing Assessment: pt alert and oriented, asnwers questions approp. pt in per wheelchair, assist of 2 to stretcher. respirations nonlabored with lungs cta. swelling, redness, and warmth noted to rt knee. pedal pulse wnl. Physician History: Pt is a 78 y/o male that presented to the ER with complains of severe pain in the R knee. Pt states, he had XR done a day ago, but now, he can't stand on it , and the knee, is very swollen and painful. Pt could not tolerate the pain and came to the ER. Pt denies F/C/S. No SOB or cough. No chest pain or palpitations. Pt denies N/V/D. Method of Injury: unknown Occurred: yesterday Quality: constant Severity of Pain-Max: moderate Severity of Pain-Current: moderate Lower Extremities Pain: knee: right (edematous, painful and warm) Modifying Factors: Improves With: nothing Associated Symptoms: none Allergies/Adverse Reactions: ether Allergy (Verified 12/13/18 20:50) BEE STING Adverse Reaction (Mild, Uncoded 12/13/18 20:50) Home Medications: Nitroglycerin 0.4 mg Tablet [Nitrostat 0.4 MG Tablet] 0.4 mg SL UD PRN 09/02 [History] Alprazolam 0.25 mg [xanAX 0.25 MG] 0.25 mg PO BID 03/29/15 [History] Simvastatin [Zocor] 5 mg PO DAILY 03/29/15 [History] Glimepiride 4 mg [Amaryl 4 mg] 4 mg PO DAILY 02/07/17 [History] Metformin HCl 500 mg [Glucophage 500 MG] 1,000 mg PO BIDWM 02/07/17 [ History] Tamsulosin HCl 0.4 mg [Flomax 0.4 MG] 0.4 mg PO DAILY 02/07/17 [History] Gabapentin 400 mg [Neurontin 400 MG] 800 mg PO TID 07/18/17 [History] Warfarin Sodium 2.5 mg [Coumadin 2.5 MG] 2.5 mg PO WEEKLY 07/18/17 [ History] Cholecalciferol (Vitamin D3) [Vitamin D] 2,000 unit PO QAM 11/22/17 [History] Ropinirole HCl [Requip] 1 mg PO HS 11/22/17 [History] Sacubitril/Valsartan [Entresto 24 mg-26 mg Tablet] 1 each PO BID 12/01/17 [ History] Bumetanide 2 mg PO DAILY 11/02/18 [History] Carvedilol 6.25 mg [Coreg 6.25 MG] 1.5 tab PO BID 12/13/18 [History] Warfarin Sodium 5 mg [Coumadin 5 MG] 5 mg PO UD 12/13/18 [History] Hx Tetanus, Diphtheria Vaccination/Date Given: Yes Hx Influenza Vaccination/Date Given: Yes Hx Pneumococcal Vaccination/Date Given: Yes (2015) Immunizations Up to Date: Yes - Review of Systems Constitutional: No Fever, No Chills Eyes: No Symptoms Ears, Nose, & Throat: No Symptoms Respiratory: No Cough, No Dyspnea Cardiac: No Chest Pain, No Edema, No Syncope Abdominal/Gastrointestinal: No Abdominal Pain, No Nausea, No Vomiting, No Diarrhea Musculoskeletal: Joint Redness, Joint Pain, Joint Swelling (On the R knee) Neurological: No Dizziness, No Focal Weakness, No Sensory Changes - Past Medical History Pertinent Past Medical History: Yes Neurological History: Stroke ENT History: No Pertinent History Cardiac History: Arrhythmia, Coronary Artery Disease, Congestive Heart Failure, Myocardial Infarction ([place]), Hypertension Respiratory History: Sleep Apnea, Other Endocrine Medical History: Diabetes Type II Musculoskeletal History: Other GI Medical History: No Pertinent History History: Other Psycho-Social History: No Pertinent History Male Reproductive Disorders: No Pertinent History Other Medical History: kidney stones 1967- 2011. clean heart cath - Past Surgical History Past Surgical History: Yes Neuro Surgical History: No Pertinent History Cardiac: Cardiac Catheterization, Pacemaker, Internal Defibrillator Respiratory: Chest Surgery Gastrointestinal: No Pertinent History Genitourinary: Kidney Surgery Musculoskeletal: Orthopedic Surgery Male Surgical History: No Pertinent History Other Surgical History: 2 knee scopes right. d/t have pacer/defib replaced - Social History Smoking Status: Former smoker How long have you smoked: 30 yrs Exposure to second hand smoke: No Drug Use: none Patient Lives Alone: No - Nursing Vital Signs Nursing Vital Signs: Initial Vital Signs Temperature 98.3 F 12/13/18 20:38 Pulse Rate 89 12/13/18 20:38 Respiratory Rate 18 12/13/18 20:38 Blood Pressure 139/73 12/13/18 20:38 O2 Sat by Pulse Oximetry 98 12/13/18 20:38 Pain Scale Pain Intensity 10 - Physical Exam General Appearance: moderate distress Eyes, Ears, Nose, Throat Exam: moist mucous membranes Neck Exam: non-tender, supple Cardiovascular/Respiratory Exam: chest non-tender, normal breath sounds, regular rate/rhythm, no respiratory distress Gastrointestinal/Abdominal Exam: non-tender, guarding Knees Exam: right knee: joint effusion, pain, soft tissue tenderness, swelling Neuro/Tendon Exam: normal sensation, normal motor functions SpO2: 95 - Course Nursing assessment & vital signs reviewed: Yes - CT Exams Right Lower Extremity CT Interpretation: Discussed w/radiologist (Septic knee on the R with effusions. occlusion of anterior tibial artery, acclution of posterior tibial artery. Near occlusion of the distal superficial femoral artery.) Ordered Tests: Active Orders 24 hr Category Date Time Status IV Insertion STAT Care 12/13/18 21:11 Active CTA LOWER EXTREMITY W CONTRAST [CT] Stat Exams 12/13/18 21:10 Taken BLOOD CULTURE Stat Lab 12/14/18 Ordered CBC W DIFF Stat Lab 12/13/18 21:30 Completed CMP Stat Lab 12/13/18 21:30 Completed Medication Summary Generic Name Dose Route Start Last Admin Trade Name Freq PRN Reason Stop Dose Admin Vancomycin HCl 1 gm in 250 mls @ 167 mls/hr 12/14/18 00:51 Vancomycin 1gm/ Ns 250ml IV 12/14/18 02:20 STAT ONE Piperacillin Sod/Tazobactam Sod 3.375 gm in 100 mls @ 200 mls/hr 12/14/18 00: 52 12/14/18 01:00 Zosyn 3.375gm/100 Ml D5w IV 12/14/18 01:21 200 mls/hr STAT STA Administration Discontinued Medications Generic Name Dose Route Start Last Admin Trade Name Freq PRN Reason Stop Dose Admin Piperacillin Sod/Tazobactam Sod Confirm 12/14/18 00:58 Zosyn 3.375gm/100 Ml D5w Administered 12/14/18 00:59 Dose 3.375 gm in 100 mls @ ud IV .STK-MED ONE Lab/Rad Data: Laboratory Result Diagrams 12/13/18 21:30 12/13/18 21:30 Laboratory Results 12/13/18 12/13/18 Range/Units 21:30 21:30 WBC 10.2 (4.0-10.5) K/mm3 RBC 4.13 (4.1-5.6) M/mm3 Hgb 13.6 (12.5-18.0) gm/dl Hct 40.4 L (42-50) % MCV 97.8 (78-100) fl MCH 32.9 H (26-32) pg MCHC 33.7 (32-36) g/dl RDW 13.6 (11.5-14.0) % Plt Count 144 L (150-450) K/mm3 MPV 9.9 H (6-9.5) fl Gran % 81.4 H (36.0-66.0) % Eos # (Auto) 0.09 (0-0.5) Absolute Lymphs (auto) 1.01 (1.0-4.6) Absolute Monos (auto) 0.77 (0.0-1.3) Lymphocytes % 10.0 L (24.0-44.0) % Monocytes % 7.6 (0.0-12.0) % Eosinophils % 0.9 (0.00-5.0) % Basophils % 0.1 (0.0-0.4) % Absolute Granulocytes 8.27 H (1.4-6.9) Basophils # 0.01 (0-0.4) Sodium 139 (137-145) mmol/L Potassium 4.5 (3.5-5.1) mmol/L Chloride 93 L (98-107) mmol/L Carbon Dioxide 35 H (22-30) mmol/L Anion Gap 15.6 H (5-15) MEQ/L BUN 33 H (9-20) mg/dL Creatinine 1.28 H (0.66-1.25) mg/dL Estimated GFR 58.1 ML/MIN Glucose 289 H (74-106) mg/dL Calcium 9.3 (8.4-10.2) mg/dL Total Bilirubin 0.90 (0.2-1.3) mg/dL AST 18 (17-59) U/L ALT 16 (0-50) U/L Alkaline Phosphatase 69 (38-126) U/L Serum Total Protein 7.4 (6.3-8.2) g/dL Albumin 3.9 (3.5-5.0) g/dL - Progress Progress: unchanged Progress Note: 12/14/18 01:[address] showed septic knee, and severe arterial disease. Dr Lechuga in [facility], accepted the pt. Blood cultures were ordered. Vancomycin and Zosyn IV were ordered. Family and pt were notified. Will see patient in: other - Departure Departure Disposition: Transfer Clinical Impression: Septic joint of right knee joint, AVD (aortic valve disease) Condition: Stable Critical Care Time: No Referrals: EVE HER MD [Primary Care Provider] - Additional Instructions: Pt to be transfered to [facility]. Dr Lechuga accepting.
[2018-12-14] MEDS ORDERED: Vancomycin 1GM/ Ns 250ML*** 250 ML IV ONE (01:37)
[2018-12-14 01:58] VITALS: BP 102/67; PULSE 80; O2SAT 94
--- NOTE | 2018-12-14 07:53 | XRAY ---
Indication: Right knee pain/edema. Conventional contrast enhanced CTA bilateral lower extremity runoff performed using 150 cc Isovue 370 contrast. Two-dimensional sagittal and coronal reformatted images obtained. Additional 3-dimensional reformatted images obtained using a separate workstation. Comparison: None Right leg runoff demonstrates minimal/mild arteriosclerotic disease of the distal abdominal aorta, common iliac, common femoral, and deep femoral arteries. Widely patent external iliac artery. Mild scattered disease throughout the superficial femoral artery. Focal high-grade 99% stenosis in the proximal popliteal artery with mild scattered disease distally. Trifurcation vessels demonstrates moderate scattered disease with occlusion of the proximal anterior tibial artery and reconstitution distally. Dorsal pedal artery appears attenuated distally. Anterior and posterior tibial artery crosses the ankle to supply the right foot. Left leg runoff demonstrates minimal arteriosclerotic disease in the common iliac, common femoral, deep femoral arteries with widely patent external iliac artery. Mild scattered disease throughout the common femoral artery with high-grade 80-90% stenosis at the level of the abductor hiatus. Moderate scattered disease throughout the popliteal artery. Trifurcation vessels demonstrates moderate scattered disease with occlusion of the mid posterior tibial artery and reconstitution distally. Dorsal pedal artery tapers off by lower leg level. Only anterior and posterior tibial arteries cross the ankle joint to supply the left foot. Visualized abdomen/pelvis demonstrates mild scattered colonic fecal debris and mild diverticulosis in the distal descending and proximal sigmoid colon. No free fluid/air. Small fatty left inguinal hernia. Moderate right knee and mild left knee nonspecific effusion. Right knee also demonstrates anterolateral cutaneous/subcutaneous swelling/edema. No acute fracture or suspicious bony lesions. Impression: 1. Right leg runoff demonstrates diffuse scattered arteriosclerotic disease as detailed. Focal high-grade 99% stenosis in the proximal popliteal artery. Occlusion of the proximal anterior tibial artery. Two-vessel runoff into the right foot. 2. Left leg runoff also demonstrates diffuse scattered arteriosclerotic disease with focal 80-90% stenosis in the distal common femoral artery. Occlusion of the mid posterior tibial artery. Two-vessel runoff into the left foot. 3. Nonspecific knee effusion, right greater than left. 4. Right knee soft tissue swelling/edema. 5. Incidental fecal stasis, colonic diverticulosis, and small fatty left inguinal hernia. Comment: Preliminary interpretation was made by [facility]. No critical discrepancy. CTDI 20.63
== END 2018-12-14 01:59 | disposition home or self-care (01) ==
LOC: ED 20:36
DX: M00.9 Pyogenic arthritis, unspecified (principal); I35.9 Nonrheumatic aortic valve disorder, unspecified; Z87.442 Personal history of urinary calculi; E11.9 Type 2 diabetes mellitus without complications; Z79.4 Long term (current) use of insulin; Z95.810 Presence of automatic (implantable) cardiac defibrillator; Z79.01 Long term (current) use of anticoagulants; Z79.899 Other long term (current) drug therapy; I25.10 Atherosclerotic heart disease of native coronary artery without angina pectoris; I50.9 Heart failure, unspecified; I10 Essential (primary) hypertension; I25.2 Old myocardial infarction; G47.30 Sleep apnea, unspecified
CPT/HCPCS: 36000; 36415; 73706; 80053; 85025; 87040; 96365; 96367; 96374; 96375; 99285; J2543; J3370

== ENCOUNTER 2018-12-18 14:14 | Inpatient (IN) | payer MEDICARE ==
[2018-12-18] MEDS ORDERED: Aplisol ID ONE (16:00)
[2018-12-18] MEDS: Glucophage 500 MG PO SCH (18:33)
[2018-12-18] MEDS: ENTRESTO 49 MG-51 MG TABLET PO SCH (22:00)
[2018-12-18] MEDS: NORCO 5/325 MG PO PRN (22:50)
[2018-12-18] MEDS: Flomax 0.4 MG PO SCH (22:50)
[2018-12-18] MEDS: Requip 0.5 MG PO SCH (22:50)
[2018-12-18] MEDS: Neurontin 400 MG PO SCH (22:50)
[2018-12-19] MEDS: Neurontin 400 MG PO SCH ×3 (08:32→21:40)
[2018-12-19] MEDS: Glucophage 500 MG PO SCH ×2 (08:32→18:08)
[2018-12-19] MEDS ORDERED: Miralax Powder 17GM PACKET PO PRN (08:39)
[2018-12-19] MEDS ORDERED: Nitrostat 0.4 MG Tablet SL PRN (08:39)
[2018-12-19] MEDS ORDERED: CEFTRIAXONE IV SCH (10:00)
[2018-12-19] MEDS ORDERED: NON-FORMULARY ITEM (Cholecalciferol (Vitamin D3) [Vitamin D3] 400 UNIT) PO SCH (10:00)
[2018-12-19] MEDS ORDERED: NON-FORMULARY ITEM (Bumetanide [Bumex] 2 MG) PO SCH (10:00)
[2018-12-19] MEDS ORDERED: NON-FORMULARY ITEM (Simvastatin [Simvastatin] 5 MG) PO SCH (10:00)
[2018-12-19] MEDS: NORCO 5/325 MG PO PRN ×3 (10:59→20:35)
[2018-12-19] MEDS: VITAMIN D PO SCH (11:00)
[2018-12-19] MEDS: ECOTRIN 81 MG PO SCH (11:00)
[2018-12-19] MEDS: BUMEX 1 MG PO SCH (11:00)
[2018-12-19] MEDS: AMARYL 4 MG PO SCH (11:01)
[2018-12-19] MEDS: ENTRESTO 49 MG-51 MG TABLET PO SCH ×2 (11:01→21:40)
[2018-12-19] MEDS: xanAX 0.25 MG PO SCH ×2 (11:01→21:40)
[2018-12-19] MEDS: Coreg 3.125 MG PO SCH (11:01)
[2018-12-19] MEDS: D5W IV SCH (11:02)
[2018-12-19] MEDS: ROCEPHIN IV SCH (11:02)
--- NOTE | 2018-12-19 14:27 | PCM.HP ---
History of Present Illness - Chief Complaint Chief Complaint: R Knee Arthroscopy I&D History of Present Illness: Mr.BARISH MILLER is a 78 year old male who had a septic right knee and underwent incision and drainage by Dr Chan, he is here for rehab, overall feels well but requires a great deal of assistance getting up, he has had a prior CVA and mobility is not good at baseline. he has no fever, pain is well controlled, currently doing well. - Review of Systems Constitutional: No Fever, No Chills Respiratory: No Cough, No Short Of Breath Cardiac: No Chest Pain, No Edema, No Syncope Abdominal/Gastrointestinal: No Abdominal Pain, No Nausea, No Vomiting, No Diarrhea Musculoskeletal: Other (right knee in cryocuff, no redness in the leg) Skin: No Rash Neurological: Focal Weakness All Other Systems: Reviewed and Negative Medications & Allergies Home Medications: Home Medication List Alprazolam 0.25 mg [xanAX 0.25 MG] 0.25 mg PO BID 12/18/18 [History Confirmed 12/18/18] Aspirin EC 81 mg [Ecotrin 81 mg] 81 mg PO DAILY 12/18/18 [History Confirmed 12/18/18] Bumetanide [Bumex] 2 mg PO DAILY 12/18/18 [History Confirmed 12/18/18] Carvedilol [Coreg] 9.375 mg PO DAILY 12/18/18 [History Confirmed 12/18/18] Ceftriaxone 2 GM/50 ML PREMIX* [ROCEPHIN 2 Gm-D5w 50ML BAG] 2 g IV DAILY 12/18 [History Confirmed 12/18/18] Cholecalciferol (Vitamin D3) [Vitamin D3] 400 unit PO DAILY 12/18/18 [History Confirmed 12/18/18] Cholecalciferol (Vitamin D3) [Vitamin D] 400 unit PO DAILY 12/18/18 [History Confirmed 12/18/18] Gabapentin 800 mg PO TID 12/18/18 [History Confirmed 12/18/18] Glimepiride [Amaryl] 4 mg PO DAILY 12/18/18 [History Confirmed 12/18/18] Hydrocodone/APAP 5-325 Tab^^^ [[place] 5-325 Tablet^^^] 1 tab PO Q4HPRN PRN MDD 6 12/18/18 [History Confirmed 12/18/18] Metformin HCl [Fortamet] 1,000 mg PO BID 12/18/18 [History Confirmed 12/18/18] Nitroglycerin 0.4 mg Tablet [Nitrostat 0.4 MG Tablet] 0.4 mg SL Q5MIN PRN MR X 3 PRN 12/18/18 [History Confirmed 12/18/18] Polyethylene Glycol 3350 17 gm [Miralax Powder 17GM PACKET] 17 gm PO DAILY PRN 12/18/18 [History Confirmed 12/18/18] Ropinirole HCl [Requip] 1 mg PO HS 12/18/18 [History Confirmed 12/18/18] Sacubitril/Valsartan [Entresto 24 mg-26 mg Tablet] 1 each PO BID 12/18/18 [ History Confirmed 12/18/18] Simvastatin 5 mg PO DAILY 12/18/18 [History Confirmed 12/18/18] Tamsulosin HCl 0.4 mg [Flomax 0.4 MG] 0.4 mg PO HS 12/18/18 [History Confirmed 12/18/18] Warfarin Sodium 3 mg [Coumadin 3 MG] 3 mg PO UD 12/18/18 [History Confirmed 12/18/18] Warfarin Sodium 3 mg [Coumadin 3 MG] 6 mg PO UD 12/18/18 [History Confirmed 12/18/18] Allergies/Adverse Reactions: Allergies Allergy/AdvReac Type Severity Reaction Status Date / Time ether Allergy Verified 12/13/18 20:50 BEE STING AdvReac Mild Uncoded 12/13/18 20:50 - Past Medical History Past Medical History: Yes Neurological History: No Pertinent History ENT History: No Pertinent History Cardiac History: Congenital Heart Disease, Hypertension Respiratory History: CHF, Pneumonia Endocrine Medical History: Diabetes Type II Musculoskelatal History: Osteoarthritis GI Medical History: No Pertinent History History: No Pertinent History Pyscho-Social History: No Pertinent History Male Reproductive Disorders: No Pertinent History Comment: kidney stones 1967- 2011. clean heart cath - Past Surgical History Past Surgical History: Yes (11/2018) Neuro Surgical History: No Pertinent History Cardiac History: Internal Defibrillator, Pacemaker Respiratory Surgery: No Pertinent History GI Surgical History: Appendectomy Genitourinary Surgical Hx: No Pertinent History Musculskeletal Surgical Hx: No Pertinent History Male Surgical History: No Pertinent History Other Surgical History: 2 knee scopes right. d/t have pacer/defib replaced - Social History Smoking Status: Never smoker How long have you smoked: 30 yrs Exposure to second hand smoke: Yes Alcohol: Rarely Drug Use: none - Physical Exam Vital Signs: Vital Signs - 24 hr Temp Pulse Resp BP Pulse Ox 12/19/18 08:00 98.5 F 77 19 119/66 97 12/18/18 20:05 98.3 F 71 24 123/65 97 Oxygen-Last 24 hours O2 Percentage 2 Liters = 28% O2 Percentage 2 Liters = 28% General Appearance: no apparent distress, alert Eye Exam: PERRL/EOMI, eyes nml inspection Respiratory Exam: normal breath sounds, lungs clear, No respiratory distress Cardiovascular Exam: regular rate/rhythm, normal heart sounds, normal peripheral pulses Gastrointestinal/Abdomen Exam: soft, normal bowel sounds, No tenderness, No mass Extremity Exam: other (right knee in cryocuff, dressing clean,dry, intact) Results - Labs Lab/Micro Results: Accuchecks Date 12/19/18 Date 12/19/18 Time 11:30 Time 07:30 Accucheck Value: 193 Accucheck Value: 118 Accucheck Value: 257 Accuchecks Date 12/19/18 Date 12/19/18 Time 11:30 Time 07:30 Accucheck Value: 193 Accucheck Value: 118 Accucheck Value: 257 Assessment/Plan (1) Septic joint of right knee joint Current Visit: No Status: Acute Assessment & Plan: here for PT, on rocephin as ordered Code(s): M00.9 - PYOGENIC ARTHRITIS, UNSPECIFIED (2) Ischemic dilated cardiomyopathy Current Visit: No Status: Acute Code(s): I25.5 - ISCHEMIC CARDIOMYOPATHY; I42.0 - DILATED CARDIOMYOPATHY (3) Diabetes type 2, controlled Current Visit: No Status: Chronic Code(s): E11.9 - TYPE 2 DIABETES MELLITUS WITHOUT COMPLICATIONS (4) History of stroke Current Visit: No Status: Acute Code(s): Z86.73 - PRSNL HX OF TIA (TIA), AND CEREB INFRC W/O RESID DEFICITS (5) Weakness Current Visit: No Status: Acute Onset Date: ~11/22/17 Code(s): R53.1 - WEAKNESS
[2018-12-19] MEDS: Coumadin 3 MG PO SCH (18:09)
[2018-12-19] MEDS: Zocor 10MG PO SCH (21:39)
[2018-12-19] MEDS: Requip 0.5 MG PO SCH (21:40)
[2018-12-19] MEDS: Flomax 0.4 MG PO SCH (21:40)
[2018-12-20] MEDS: NORCO 5/325 MG PO PRN ×3 (02:39→22:38)
[2018-12-20] MEDS: Glucophage 500 MG PO SCH ×2 (07:54→16:06)
--- NOTE | 2018-12-20 08:13 | PCM.NOTE ---
Date and Time: 12/20/18 08 Subjective Assessment: patient is feeling well, pain is controlled, tolerating po, participated in PT yesterday. no problems or concerns this morning Objective Exam General Appearance: no apparent distress, alert Skin Exam: normal color, warm, dry Respiratory Exam: normal breath sounds, lungs clear, No respiratory distress Cardiovascular Exam: regular rate/rhythm, normal heart sounds Gastrointestinal/Abdomen Exam: soft, No tenderness, No mass Extremity Exam: other (right knee dressing intact, cryocuff in place) OBJECTIVE DATA Vital Signs: Vital Signs - 24 hr Temp Pulse Resp BP Pulse Ox 12/20/18 07:25 98.8 F 74 20 120/68 97 12/19/18 20:05 99.7 F 70 22 112/59 96 Oxygen-Last 24 hours O2 Percentage 2 Liters = 28% O2 Percentage 2 Liters = 28% Pain Assessment - Last Documented Pain Intensity 6 Pain Scale Used 0-10 Pain Scale Intake and Output: Intake & Output 12/17/18 12/18/18 12/19/18 12/20/18 11:59 11:59 11:59 11:59 Intake Total 950 1020 Output Total 1050 825 Balance -100 195 Weight 103.3 kg Lab Results: Accuchecks Date 12/19/18 Date 12/19/18 Date 12/19/18 Time 22:00 Time 16:30 Time 11:30 Accucheck Value: 100 Accucheck Value: 192 Accucheck Value: 193 Assessment/Plan (1) Septic joint of right knee joint Current Visit: No Status: Acute Assessment & Plan: continue rocephin/PT Code(s): M00.9 - PYOGENIC ARTHRITIS, UNSPECIFIED (2) Ischemic dilated cardiomyopathy Current Visit: No Status: Acute Code(s): I25.5 - ISCHEMIC CARDIOMYOPATHY; I42.0 - DILATED CARDIOMYOPATHY (3) Diabetes type 2, controlled Current Visit: No Status: Chronic Code(s): E11.9 - TYPE 2 DIABETES MELLITUS WITHOUT COMPLICATIONS (4) History of stroke Current Visit: No Status: Acute Code(s): Z86.73 - PRSNL HX OF TIA (TIA), AND CEREB INFRC W/O RESID DEFICITS (5) Weakness Current Visit: No Status: Acute Onset Date: ~11/22/17 Code(s): R53.1 - WEAKNESS
[2018-12-20] MEDS: D5W IV SCH (09:25)
[2018-12-20] MEDS: BUMEX 1 MG PO SCH (09:25)
[2018-12-20] MEDS: ROCEPHIN IV SCH (09:25)
[2018-12-20] MEDS: xanAX 0.25 MG PO SCH ×2 (09:25→22:38)
[2018-12-20] MEDS: ENTRESTO 49 MG-51 MG TABLET PO SCH ×2 (09:26→22:35)
[2018-12-20] MEDS: AMARYL 4 MG PO SCH (09:26)
[2018-12-20] MEDS: VITAMIN D PO SCH (09:26)
[2018-12-20] MEDS: Coreg 3.125 MG PO SCH (09:26)
[2018-12-20] MEDS: Neurontin 400 MG PO SCH ×3 (09:26→22:38)
[2018-12-20] MEDS: ECOTRIN 81 MG PO SCH (09:26)
[2018-12-20] MEDS: Coumadin 3 MG PO SCH (17:08)
[2018-12-20] MEDS: Flomax 0.4 MG PO SCH (22:38)
[2018-12-20] MEDS: Requip 0.5 MG PO SCH (22:38)
[2018-12-20] MEDS: Zocor 10MG PO SCH (22:38)
[2018-12-21] MEDS: Glucophage 500 MG PO SCH ×2 (07:21→17:05)
[2018-12-21] MEDS: BUMEX 1 MG PO SCH (10:13)
[2018-12-21] MEDS: ENTRESTO 49 MG-51 MG TABLET PO SCH ×2 (10:14→21:03)
[2018-12-21] MEDS: ECOTRIN 81 MG PO SCH (10:14)
[2018-12-21] MEDS: AMARYL 4 MG PO SCH (10:14)
[2018-12-21] MEDS: Neurontin 400 MG PO SCH ×3 (10:14→21:03)
[2018-12-21] MEDS: Coreg 3.125 MG PO SCH (10:16)
[2018-12-21] MEDS: ROCEPHIN IV SCH (10:22)
[2018-12-21] MEDS: D5W IV SCH (10:22)
[2018-12-21] MEDS: VITAMIN D PO SCH (10:45)
[2018-12-21] MEDS: xanAX 0.25 MG PO SCH ×2 (10:46→21:02)
[2018-12-21] MEDS: NORCO 5/325 MG PO PRN ×2 (11:27→15:17)
[2018-12-21] MEDS: Coumadin 3 MG PO SCH (17:05)
[2018-12-21 19:08] LABS: Hematocrit 36.1 % (42-50); Hemoglobin 12.3 gm/dl (12.5-18.0); Mean Cell Volume 97.6 fl (78-100); Mean Corpuscular Hemoglobin 33.2 pg (26-32); Mean Corpuscular Hgb Concent. 34.1 g/dl (32-36); Mean Platelet Volume 8.7 fl (6-9.5); Platelet Count 222 K/mm3 (150-450); Red Cell Distribution Width 13.6 % (11.5-14.0); White Blood Count 10.8 K/mm3 (4.0-10.5)
[2018-12-21 19:49] LABS: ALKALINE PHOSPHATASE 136 U/L (38-126); ANION GAP 12.6 MEQ/L (5-15); BLOOD UREA NITROGEN 28 mg/dL (9-20); CHLORIDE 98 mmol/L (98-107); Calcium 9.2 mg/dL (8.4-10.2); Carbon Dioxide 32 mmol/L (22-30); Creatinine 1 1.04 mg/dL (0.66-1.25); Glucose 153 mg/dL (74-106); NT PRO BNP 6850 pg/mL (0-1800); Potassium 4.1 mmol/L (3.5-5.1); SGOT/AST 21 U/L (17-59); SGPT/ALT 18 U/L (0-50); SODIUM 138 mmol/L (137-145); TSH, 3RD Generation 0.951 mIU/L (0.47-4.68); Total Protein 6.3 g/dL (6.3-8.2)
[2018-12-21] MEDS: Requip 0.5 MG PO SCH (21:02)
[2018-12-21] MEDS: Flomax 0.4 MG PO SCH (21:02)
[2018-12-21] MEDS: Zocor 10MG PO SCH (21:02)
[2018-12-22] MEDS: Glucophage 500 MG PO SCH ×2 (07:22→16:43)
[2018-12-22] MEDS: D5W IV SCH (09:30)
[2018-12-22] MEDS: ROCEPHIN IV SCH (09:30)
[2018-12-22] MEDS: BUMEX 1 MG PO SCH (09:32)
[2018-12-22] MEDS: VITAMIN D PO SCH (09:33)
[2018-12-22] MEDS: Neurontin 400 MG PO SCH ×3 (09:33→21:15)
[2018-12-22] MEDS: AMARYL 4 MG PO SCH (09:34)
[2018-12-22] MEDS: Coreg 3.125 MG PO SCH (09:34)
[2018-12-22] MEDS: ECOTRIN 81 MG PO SCH (09:35)
[2018-12-22] MEDS: ENTRESTO 49 MG-51 MG TABLET PO SCH ×2 (09:38→21:15)
[2018-12-22] MEDS: NORCO 5/325 MG PO PRN ×3 (10:03→18:31)
[2018-12-22] MEDS: Coumadin 3 MG PO SCH (18:32)
[2018-12-22] MEDS: xanAX 0.25 MG PO SCH (21:15)
[2018-12-22] MEDS: Zocor 10MG PO SCH (21:15)
[2018-12-22] MEDS: Requip 0.5 MG PO SCH (21:15)
[2018-12-22] MEDS: Flomax 0.4 MG PO SCH (21:15)
[2018-12-23] MEDS ORDERED: Sodium Chloride 0.9% 10 ML FLUSH Syringe PICC PRN (03:35)
[2018-12-23 07:56] LABS: INR 2.46 (0.8-3.0); PROTIME 28.9 SECONDS (8.83-12.87)
[2018-12-23] MEDS: Glucophage 500 MG PO SCH ×3 (08:03→17:11)
--- NOTE | 2018-12-23 08:07 | PCM.NOTE ---
Date and Time: 12/23/18 0803 Subjective Assessment: patient doing well, participating in therapy. is concerned about decrease in urine output. labs on 12/21 were reassuring. Objective Exam General Appearance: no apparent distress, alert Respiratory Exam: normal breath sounds Cardiovascular Exam: regular rate/rhythm, normal heart sounds Gastrointestinal/Abdomen Exam: soft, No tenderness, No mass Extremity Exam: other (right knee dressing clean/dry/intact. cryocuff in place. no redness or warmth of surrounding skin) OBJECTIVE DATA Vital Signs: Vital Signs - 24 hr Temp Pulse Resp BP Pulse Ox 12/23/18 07:46 98.1 F 70 18 128/62 95 12/22/18 20:26 97 12/22/18 20:00 98.3 F 70 17 121/56 94 L Oxygen-Last 24 hours O2 Percentage 2 Liters = 28% O2 Percentage 2 Liters = 28% Pain Assessment - Last Documented Pain Intensity 7 Pain Scale Used 0-10 Pain Scale Intake and Output: Intake & Output 12/20/18 12/21/18 12/22/18 12/23/18 11:59 11:59 11:59 11:59 Intake Total 1260 2100 1560 1400 Output Total 1025 1500 2600 950 Balance 235 600 -1040 450 Weight 102.6 kg Lab Results: Accuchecks Date 12/22/18 Date 12/22/18 Time 16:30 Time 11:30 Accucheck Value: 74 Accucheck Value: 149 Accucheck Value: 138 Assessment/Plan (1) Septic joint of right knee joint Current Visit: No Status: Acute Assessment & Plan: had elevated wbc in joint fluid per records from [facility] but no growth on culture. ID was consulted and has recommend 28 days of rocephin 2g IV daily. at this point weakness/deconditioning and mobility are the greatest barriers to Asad returning home. continue PT, apparently there is a family member who his believes could administer antibiotics at home when he is discharged if we can make arrangements. Code(s): M00.9 - PYOGENIC ARTHRITIS, UNSPECIFIED (2) Ischemic dilated cardiomyopathy Current Visit: No Status: Acute Code(s): I25.5 - ISCHEMIC CARDIOMYOPATHY; I42.0 - DILATED CARDIOMYOPATHY (3) Diabetes type 2, controlled Current Visit: No Status: Chronic Code(s): E11.9 - TYPE 2 DIABETES MELLITUS WITHOUT COMPLICATIONS (4) History of stroke Current Visit: No Status: Acute Code(s): Z86.73 - PRSNL HX OF TIA (TIA), AND CEREB INFRC W/O RESID DEFICITS (5) Weakness Current Visit: No Status: Acute Onset Date: ~11/22/17 Code(s): R53.1 - WEAKNESS
[2018-12-23] MEDS: D5W IV SCH (09:48)
[2018-12-23] MEDS: ECOTRIN 81 MG PO SCH (09:48)
[2018-12-23] MEDS: Coreg 3.125 MG PO SCH (09:48)
[2018-12-23] MEDS: Neurontin 400 MG PO SCH ×3 (09:48→20:41)
[2018-12-23] MEDS: ROCEPHIN IV SCH (09:48)
[2018-12-23] MEDS: BUMEX 1 MG PO SCH (09:48)
[2018-12-23] MEDS: VITAMIN D PO SCH (09:48)
[2018-12-23] MEDS: ENTRESTO 49 MG-51 MG TABLET PO SCH ×2 (09:49→20:43)
[2018-12-23] MEDS: AMARYL 4 MG PO SCH (09:51)
[2018-12-23] MEDS: Pain Relieving Rub TOP PRN (15:59)
[2018-12-23] MEDS: Coumadin 3 MG PO SCH (17:11)
[2018-12-23] MEDS: NORCO 5/325 MG PO PRN ×2 (17:13→21:34)
[2018-12-23] MEDS: Requip 0.5 MG PO SCH (20:42)
[2018-12-23] MEDS: Flomax 0.4 MG PO SCH (20:42)
[2018-12-23] MEDS: xanAX 0.25 MG PO SCH (20:42)
[2018-12-23] MEDS: Zocor 10MG PO SCH (20:42)
[2018-12-24] MEDS: NORCO 5/325 MG PO PRN ×4 (01:36→21:15)
[2018-12-24] MEDS: Glucophage 500 MG PO SCH ×2 (08:18→17:37)
[2018-12-24] MEDS: VITAMIN D PO SCH (09:05)
[2018-12-24] MEDS: ECOTRIN 81 MG PO SCH (09:05)
[2018-12-24] MEDS: ROCEPHIN IV SCH (09:05)
[2018-12-24] MEDS: AMARYL 4 MG PO SCH (09:05)
[2018-12-24] MEDS: D5W IV SCH (09:05)
[2018-12-24] MEDS: ENTRESTO 49 MG-51 MG TABLET PO SCH ×2 (09:06→21:14)
[2018-12-24] MEDS: Coreg 3.125 MG PO SCH (09:06)
[2018-12-24] MEDS: BUMEX 1 MG PO SCH (09:06)
[2018-12-24] MEDS: Neurontin 400 MG PO SCH ×3 (09:06→21:17)
[2018-12-24] MEDS: Pain Relieving Rub TOP PRN ×2 (09:12→21:13)
[2018-12-24] MEDS: Coumadin 3 MG PO SCH (17:34)
[2018-12-24] MEDS: Requip 0.5 MG PO SCH (21:14)
[2018-12-24] MEDS: Flomax 0.4 MG PO SCH (21:14)
[2018-12-24] MEDS: xanAX 0.25 MG PO SCH (21:15)
[2018-12-24] MEDS: Zocor 10MG PO SCH (21:15)
[2018-12-25] MEDS: NORCO 5/325 MG PO PRN ×4 (01:24→20:24)
[2018-12-25] MEDS: Glucophage 500 MG PO SCH ×2 (08:24→17:26)
[2018-12-25] MEDS: Neurontin 400 MG PO SCH ×3 (10:18→21:48)
[2018-12-25] MEDS: ROCEPHIN IV SCH (10:18)
[2018-12-25] MEDS: ECOTRIN 81 MG PO SCH (10:18)
[2018-12-25] MEDS: D5W IV SCH (10:18)
[2018-12-25] MEDS: AMARYL 4 MG PO SCH (10:19)
[2018-12-25] MEDS: BUMEX 1 MG PO SCH (10:19)
[2018-12-25] MEDS: Coreg 3.125 MG PO SCH (10:19)
[2018-12-25] MEDS: VITAMIN D PO SCH (10:19)
[2018-12-25] MEDS: Pain Relieving Rub TOP PRN (10:20)
[2018-12-25] MEDS: ENTRESTO 49 MG-51 MG TABLET PO SCH ×2 (10:20→21:48)
[2018-12-25] MEDS: Coumadin 3 MG PO SCH (17:27)
[2018-12-25] MEDS: Zocor 10MG PO SCH (21:48)
[2018-12-25] MEDS: xanAX 0.25 MG PO SCH (21:48)
[2018-12-25] MEDS: Requip 0.5 MG PO SCH (21:48)
[2018-12-25] MEDS: Flomax 0.4 MG PO SCH (21:49)
[2018-12-26] MEDS: NORCO 5/325 MG PO PRN ×3 (03:14→20:34)
[2018-12-26] MEDS: Glucophage 500 MG PO SCH ×2 (08:16→17:26)
[2018-12-26] MEDS: ROCEPHIN IV SCH (09:23)
[2018-12-26] MEDS: Coreg 3.125 MG PO SCH (09:23)
[2018-12-26] MEDS: D5W IV SCH (09:23)
[2018-12-26] MEDS: ENTRESTO 49 MG-51 MG TABLET PO SCH ×2 (09:24→21:49)
[2018-12-26] MEDS: AMARYL 4 MG PO SCH (09:24)
[2018-12-26] MEDS: BUMEX 1 MG PO SCH (09:24)
[2018-12-26] MEDS: Neurontin 400 MG PO SCH ×3 (09:24→21:51)
[2018-12-26] MEDS: VITAMIN D PO SCH (09:24)
[2018-12-26] MEDS: ECOTRIN 81 MG PO SCH (09:24)
[2018-12-26] MEDS: Pain Relieving Rub TOP PRN ×2 (09:25→15:55)
[2018-12-26] MEDS: Coumadin 3 MG PO SCH (17:26)
[2018-12-26] MEDS: Flomax 0.4 MG PO SCH (21:50)
[2018-12-26] MEDS: Zocor 10MG PO SCH (21:51)
[2018-12-26] MEDS: xanAX 0.25 MG PO SCH (21:51)
[2018-12-26] MEDS: Requip 0.5 MG PO SCH (21:51)
[2018-12-27] MEDS: NORCO 5/325 MG PO PRN ×3 (02:56→18:40)
--- NOTE | 2018-12-27 08:12 | PCM.NOTE ---
Date and Time: 12/27/18 0808 Subjective Assessment: patient is ambulating a little, states he is feeling much better. tolerating po , pain is controlled. goes to see Dr Marino infectious disease today Objective Exam General Appearance: no apparent distress, alert Skin Exam: normal color, warm, dry Respiratory Exam: normal breath sounds, lungs clear, No respiratory distress Cardiovascular Exam: regular rate/rhythm, normal heart sounds Extremity Exam: other (dressing clean, dry, intact to right knee. no surrounding redness) OBJECTIVE DATA Vital Signs: Vital Signs - 24 hr Temp Pulse Resp BP Pulse Ox 12/27/18 07:14 96 12/26/18 21:00 97.8 F 72 22 129/58 94 L 12/26/18 16:00 97.9 F 73 18 131/61 98 Oxygen-Last 24 hours O2 Percentage 2 Liters = 28% O2 Percentage 2 Liters = 28% Pain Assessment - Last Documented Pain Intensity 6 Pain Scale Used FLACC Intake and Output: Intake & Output 12/24/18 12/25/18 12/26/18 12/27/18 11:59 11:59 11:59 11:59 Intake Total 2019 2140 840 1030 Output Total 1750 1300 1400 600 Balance 270 840 -560 430 Weight 100.2 kg Lab Results: Accuchecks Date 12/27/18 Date 12/26/18 Date 12/26/18 Time 07:30 Time 16:30 Time 11:30 Accucheck Value: 104 Accucheck Value: 205 Accucheck Value: 131 Accucheck Value: 120 Assessment/Plan (1) Septic joint of right knee joint Current Visit: No Status: Acute Assessment & Plan: on rocephin, initial plan was for [address] Marino. will discuss with him today. Code(s): M00.9 - PYOGENIC ARTHRITIS, UNSPECIFIED (2) Ischemic dilated cardiomyopathy Current Visit: No Status: Acute Code(s): I25.5 - ISCHEMIC CARDIOMYOPATHY; I42.0 - DILATED CARDIOMYOPATHY (3) Diabetes type 2, controlled Current Visit: No Status: Chronic Code(s): E11.9 - TYPE 2 DIABETES MELLITUS WITHOUT COMPLICATIONS (4) History of stroke Current Visit: No Status: Acute Code(s): Z86.73 - PRSNL HX OF TIA (TIA), AND CEREB INFRC W/O RESID DEFICITS (5) Weakness Current Visit: No Status: Acute Onset Date: ~11/22/17 Code(s): R53.1 - WEAKNESS
[2018-12-27] MEDS: Glucophage 500 MG PO SCH ×2 (08:24→16:52)
[2018-12-27] MEDS: Neurontin 400 MG PO SCH ×3 (08:27→21:43)
[2018-12-27] MEDS: BUMEX 1 MG PO SCH (11:07)
[2018-12-27] MEDS: AMARYL 4 MG PO SCH (11:07)
[2018-12-27] MEDS: Coreg 3.125 MG PO SCH (11:08)
[2018-12-27] MEDS: ECOTRIN 81 MG PO SCH (11:08)
[2018-12-27] MEDS: VITAMIN D PO SCH (11:08)
[2018-12-27] MEDS: ENTRESTO 49 MG-51 MG TABLET PO SCH ×2 (11:09→21:42)
[2018-12-27] MEDS: D5W IV SCH (11:12)
[2018-12-27] MEDS: ROCEPHIN IV SCH (11:12)
[2018-12-27] MEDS: Coumadin 3 MG PO SCH (17:06)
[2018-12-27] MEDS: Zocor 10MG PO SCH (21:43)
[2018-12-27] MEDS: xanAX 0.25 MG PO SCH (21:43)
[2018-12-27] MEDS: Requip 0.5 MG PO SCH (21:43)
[2018-12-27] MEDS: Flomax 0.4 MG PO SCH (21:43)
[2018-12-28] MEDS: NORCO 5/325 MG PO PRN ×3 (01:39→21:25)
[2018-12-28] MEDS: Glucophage 500 MG PO SCH ×2 (08:06→17:01)
[2018-12-28] MEDS: ROCEPHIN IV SCH (10:06)
[2018-12-28] MEDS: D5W IV SCH (10:06)
[2018-12-28] MEDS: BUMEX 1 MG PO SCH (10:08)
[2018-12-28] MEDS: Coreg 3.125 MG PO SCH (10:08)
[2018-12-28] MEDS: VITAMIN D PO SCH (10:08)
[2018-12-28] MEDS: AMARYL 4 MG PO SCH (10:08)
[2018-12-28] MEDS: ECOTRIN 81 MG PO SCH (10:09)
[2018-12-28] MEDS: ENTRESTO 49 MG-51 MG TABLET PO SCH ×2 (10:10→21:45)
[2018-12-28] MEDS: Neurontin 400 MG PO SCH ×3 (10:10→21:44)
[2018-12-28] MEDS: Pain Relieving Rub TOP PRN (10:12)
[2018-12-28] MEDS: Coumadin 3 MG PO SCH (17:01)
[2018-12-28] MEDS: Requip 0.5 MG PO SCH (21:44)
[2018-12-28] MEDS: xanAX 0.25 MG PO SCH (21:44)
[2018-12-28] MEDS: Zocor 10MG PO SCH (21:44)
[2018-12-28] MEDS: Flomax 0.4 MG PO SCH (21:44)
[2018-12-29] MEDS: NORCO 5/325 MG PO PRN ×4 (04:59→22:07)
[2018-12-29] MEDS: Pain Relieving Rub TOP PRN ×2 (08:22→18:21)
[2018-12-29] MEDS: Glucophage 500 MG PO SCH ×2 (08:22→16:48)
[2018-12-29] MEDS: ECOTRIN 81 MG PO SCH (09:21)
[2018-12-29] MEDS: AMARYL 4 MG PO SCH (09:22)
[2018-12-29] MEDS: Coreg 3.125 MG PO SCH (09:22)
[2018-12-29] MEDS: BUMEX 1 MG PO SCH (09:22)
[2018-12-29] MEDS: Neurontin 400 MG PO SCH ×3 (09:23→22:07)
[2018-12-29] MEDS: ENTRESTO 49 MG-51 MG TABLET PO SCH ×2 (09:23→22:08)
[2018-12-29] MEDS: ROCEPHIN IV SCH (09:24)
[2018-12-29] MEDS: VITAMIN D PO SCH (09:24)
[2018-12-29] MEDS: D5W IV SCH (09:24)
[2018-12-29] MEDS: Coumadin 3 MG PO SCH (17:43)
[2018-12-29] MEDS: Zocor 10MG PO SCH (22:07)
[2018-12-29] MEDS: Flomax 0.4 MG PO SCH (22:07)
[2018-12-29] MEDS: xanAX 0.25 MG PO SCH (22:08)
[2018-12-29] MEDS: Requip 0.5 MG PO SCH (22:08)
[2018-12-30] MEDS: NORCO 5/325 MG PO PRN ×5 (03:04→23:22)
[2018-12-30] MEDS: Glucophage 500 MG PO SCH ×2 (07:53→19:18)
[2018-12-30] MEDS: BUMEX 1 MG PO SCH (09:32)
[2018-12-30] MEDS: ENTRESTO 49 MG-51 MG TABLET PO SCH ×2 (09:33→22:07)
[2018-12-30] MEDS: Neurontin 400 MG PO SCH ×3 (09:33→22:07)
[2018-12-30] MEDS: ECOTRIN 81 MG PO SCH (09:33)
[2018-12-30] MEDS: AMARYL 4 MG PO SCH (09:33)
[2018-12-30] MEDS: Coreg 3.125 MG PO SCH (09:33)
[2018-12-30] MEDS: ROCEPHIN IV SCH (09:34)
[2018-12-30] MEDS: VITAMIN D PO SCH (09:34)
[2018-12-30] MEDS: D5W IV SCH (09:34)
[2018-12-30] MEDS: Pain Relieving Rub TOP PRN (09:39)
[2018-12-30] MEDS: Coumadin 3 MG PO SCH (19:17)
[2018-12-30] MEDS: Requip 0.5 MG PO SCH (22:07)
[2018-12-30] MEDS: Flomax 0.4 MG PO SCH (22:07)
[2018-12-30] MEDS: Zocor 10MG PO SCH (22:08)
[2018-12-30] MEDS: xanAX 0.25 MG PO SCH (22:08)
[2018-12-31] MEDS: NORCO 5/325 MG PO PRN ×4 (05:12→20:13)
[2018-12-31] MEDS: Glucophage 500 MG PO SCH ×2 (07:43→16:45)
[2018-12-31] MEDS: Coreg 3.125 MG PO SCH (09:28)
[2018-12-31] MEDS: AMARYL 4 MG PO SCH (09:28)
[2018-12-31] MEDS: D5W IV SCH (09:28)
[2018-12-31] MEDS: ECOTRIN 81 MG PO SCH (09:28)
[2018-12-31] MEDS: BUMEX 1 MG PO SCH (09:28)
[2018-12-31] MEDS: VITAMIN D PO SCH (09:28)
[2018-12-31] MEDS: ENTRESTO 49 MG-51 MG TABLET PO SCH ×2 (09:28→22:45)
[2018-12-31] MEDS: Neurontin 400 MG PO SCH ×3 (09:28→22:45)
[2018-12-31] MEDS: ROCEPHIN IV SCH (09:28)
[2018-12-31] MEDS: Coumadin 3 MG PO SCH (17:03)
[2018-12-31] MEDS: Requip 0.5 MG PO SCH (22:44)
[2018-12-31] MEDS: xanAX 0.25 MG PO SCH (22:45)
[2018-12-31] MEDS: Zocor 10MG PO SCH (22:45)
[2018-12-31] MEDS: Flomax 0.4 MG PO SCH (22:45)
[2019-01-01] MEDS: NORCO 5/325 MG PO PRN ×5 (00:39→21:45)
[2019-01-01 06:06] LABS: ANION GAP 11.4 MEQ/L (5-15); BLOOD UREA NITROGEN 26 mg/dL (9-20); CHLORIDE 100 mmol/L (98-107); Calcium 8.9 mg/dL (8.4-10.2); Carbon Dioxide 31 mmol/L (22-30); Creatinine 1 0.79 mg/dL (0.66-1.25); Glucose 95 mg/dL (74-106); Potassium 4.3 mmol/L (3.5-5.1); SODIUM 137 mmol/L (137-145)
[2019-01-01] MEDS: Glucophage 500 MG PO SCH ×2 (07:45→17:22)
[2019-01-01] MEDS: VITAMIN D PO SCH (07:51)
[2019-01-01] MEDS: Coreg 3.125 MG PO SCH (07:51)
[2019-01-01] MEDS: BUMEX 1 MG PO SCH (07:52)
[2019-01-01] MEDS: ECOTRIN 81 MG PO SCH (07:52)
[2019-01-01] MEDS: ENTRESTO 49 MG-51 MG TABLET PO SCH ×2 (07:53→21:46)
[2019-01-01] MEDS: AMARYL 4 MG PO SCH (07:53)
[2019-01-01] MEDS: Neurontin 400 MG PO SCH ×3 (07:53→21:46)
[2019-01-01] MEDS: ROCEPHIN IV SCH (07:56)
[2019-01-01] MEDS: D5W IV SCH (07:56)
[2019-01-01] MEDS: Coumadin 3 MG PO SCH (17:23)
[2019-01-01] MEDS: Requip 0.5 MG PO SCH (21:46)
[2019-01-01] MEDS: Zocor 10MG PO SCH (21:47)
[2019-01-01] MEDS: xanAX 0.25 MG PO SCH (21:47)
[2019-01-01] MEDS: Flomax 0.4 MG PO SCH (21:47)
[2019-01-02] MEDS: NORCO 5/325 MG PO PRN ×4 (07:40→23:42)
[2019-01-02] MEDS: Glucophage 500 MG PO SCH ×2 (07:56→16:41)
--- NOTE | 2019-01-02 08:47 | PCM.NOTE ---
Date and Time: 01/02/19 0845 Subjective Assessment: doing great, saw Dr Chan yesterday, knee looks good Objective Exam General Appearance: no apparent distress, alert Skin Exam: normal color, warm, dry Wound Assessment: Skin/Wound Assessment Wound/Incision Assessment Start: 12/25/18 20: 05 Text: Status: Active Freq: Q6H Protocol: Document 01/02/19 07:44 RDUHNE (Rec: 01/02/19 07:45 RDUHNE [id number]) Wound/Incision Assessment Right Knee Wound Assessment Shift Assessment Wound Type Incision Wound Stage Non Pressure Wound Dressing Status Dry & Intact Drainage Amount None Comment dressing removed on 01/01/[address] Chan's oiffice and sutures removed. 2 clear tegaderms covering incision areas, CDI Wound Photo Photo Taken No Eye Exam: PERRL, EOMI, eyes nml inspection Respiratory Exam: normal breath sounds, lungs clear, No respiratory distress Cardiovascular Exam: regular rate/rhythm, normal heart sounds Gastrointestinal/Abdomen Exam: soft, No tenderness, No mass Extremity Exam: other (right knee mild swelling, no redness, no warmth. incisions clean, dry, intact) OBJECTIVE DATA Vital Signs: Vital Signs - 24 hr Temp Pulse Resp BP Pulse Ox 01/02/19 08:29 97.7 F 90 18 124/59 94 L 01/02/19 05:26 98.3 F 69 18 114/57 01/01/19 20:00 98.2 F 80 18 130/62 97 01/01/19 19:55 94 L Oxygen-Last 24 hours O2 Percentage 2 Liters = 28% O2 Percentage 2 Liters = 28% O2 Percentage 2 Liters = 28% Pain Assessment - Last Documented Pain Intensity 5 Pain Scale Used 0-10 Pain Scale Intake and Output: Intake & Output 12/30/18 12/31/18 01/01/19 01/02/19 11:59 11:59 11:59 11:59 Intake Total 480 950 820 360 Output Total 8088 271 1469 950 Balance -820 125 -1280 -590 Weight 100 kg Lab Results: Accuchecks Date 01/01/19 Time 22:00 Accucheck Value: 111 Accucheck Value: 178 Accucheck Value: 84 Assessment/Plan (1) Septic joint of right knee joint Current Visit: No Status: Acute Assessment & Plan: on rocephin, continue x 28 days Code(s): M00.9 - PYOGENIC ARTHRITIS, UNSPECIFIED (2) Ischemic dilated cardiomyopathy Current Visit: No Status: Acute Code(s): I25.5 - ISCHEMIC CARDIOMYOPATHY; I42.0 - DILATED CARDIOMYOPATHY (3) Diabetes type 2, controlled Current Visit: No Status: Chronic Code(s): E11.9 - TYPE 2 DIABETES MELLITUS WITHOUT COMPLICATIONS (4) History of stroke Current Visit: No Status: Acute Code(s): Z86.73 - PRSNL HX OF TIA (TIA), AND CEREB INFRC W/O RESID DEFICITS (5) Weakness Current Visit: No Status: Acute Onset Date: ~11/22/17 Code(s): R53.1 - WEAKNESS
[2019-01-02] MEDS: Neurontin 400 MG PO SCH ×3 (10:52→21:09)
[2019-01-02] MEDS: ROCEPHIN IV SCH (10:52)
[2019-01-02] MEDS: D5W IV SCH (10:52)
[2019-01-02] MEDS: ECOTRIN 81 MG PO SCH (10:52)
[2019-01-02] MEDS: VITAMIN D PO SCH (10:52)
[2019-01-02] MEDS: BUMEX 1 MG PO SCH (10:53)
[2019-01-02] MEDS: Coreg 3.125 MG PO SCH (10:53)
[2019-01-02] MEDS: AMARYL 4 MG PO SCH (10:53)
[2019-01-02] MEDS: ENTRESTO 49 MG-51 MG TABLET PO SCH ×2 (11:02→21:08)
[2019-01-02] MEDS: Coumadin 3 MG PO SCH (17:48)
[2019-01-02] MEDS: Requip 0.5 MG PO SCH (21:09)
[2019-01-02] MEDS: Flomax 0.4 MG PO SCH (21:09)
[2019-01-02] MEDS: xanAX 0.25 MG PO SCH (21:09)
[2019-01-02] MEDS: Zocor 10MG PO SCH (21:09)
[2019-01-03] MEDS: Glucophage 500 MG PO SCH ×2 (07:57→17:26)
[2019-01-03] MEDS: NORCO 5/325 MG PO PRN ×3 (08:09→19:41)
[2019-01-03] MEDS: D5W IV SCH (10:07)
[2019-01-03] MEDS: ROCEPHIN IV SCH (10:07)
[2019-01-03] MEDS: VITAMIN D PO SCH (10:13)
[2019-01-03] MEDS: Coreg 3.125 MG PO SCH (10:14)
[2019-01-03] MEDS: AMARYL 4 MG PO SCH (10:14)
[2019-01-03] MEDS: BUMEX 1 MG PO SCH (10:14)
[2019-01-03] MEDS: Neurontin 400 MG PO SCH ×4 (10:14→21:15)
[2019-01-03] MEDS: ECOTRIN 81 MG PO SCH (10:14)
[2019-01-03] MEDS: ENTRESTO 49 MG-51 MG TABLET PO SCH ×2 (10:14→21:16)
[2019-01-03] MEDS: Coumadin 3 MG PO SCH (17:27)
[2019-01-03] MEDS: Requip 0.5 MG PO SCH (21:14)
[2019-01-03] MEDS: xanAX 0.25 MG PO SCH (21:15)
[2019-01-03] MEDS: Zocor 10MG PO SCH (21:16)
[2019-01-03] MEDS: Flomax 0.4 MG PO SCH (21:16)
[2019-01-04] MEDS: NORCO 5/325 MG PO PRN ×3 (02:10→14:54)
[2019-01-04] MEDS: ROCEPHIN IV SCH (08:47)
[2019-01-04] MEDS: D5W IV SCH (08:47)
[2019-01-04] MEDS: Glucophage 500 MG PO SCH ×2 (08:47→17:22)
[2019-01-04] MEDS: BUMEX 1 MG PO SCH (08:47)
[2019-01-04] MEDS: Neurontin 400 MG PO SCH ×3 (08:47→21:51)
[2019-01-04] MEDS: Coreg 3.125 MG PO SCH (08:47)
[2019-01-04] MEDS: ECOTRIN 81 MG PO SCH (08:48)
[2019-01-04] MEDS: VITAMIN D PO SCH (08:48)
[2019-01-04] MEDS: AMARYL 4 MG PO SCH (08:48)
[2019-01-04] MEDS: ENTRESTO 49 MG-51 MG TABLET PO SCH ×2 (08:53→21:50)
--- NOTE | 2019-01-04 15:55 | PCM.NOTE ---
Date and Time: 01/04/19 1549 Subjective Assessment: Patient desires to go home tomorrow. He has follow up set up with Dr. Chan, his kier tender, and Dr. Marino. He has outpatient infusion of ceftriaxone set up and also going to do out patient PT and exercises at home. He has no concerns. He reports he has all of his regular medications at home. Patient reports he does not think he will need hydrocodone at home and does not want a script at discharge. - Review of Systems Constitutional: No Symptoms Eyes: No Symptoms Ears, Nose, & Throat: No Symptoms Respiratory: No Symptoms Cardiac: No Symptoms Abdominal/Gastrointestinal: No Symptoms Genitourinary Symptoms: No Symptoms Musculoskeletal: No Symptoms Skin: No Symptoms Objective Exam General Appearance: no apparent distress, alert, obese Neurologic Exam: alert, cooperative, normal mood/affect Skin Exam: normal color, warm, dry, No rash Wound Assessment: Skin/Wound Assessment Wound/Incision Assessment Start: 12/25/18 20: 05 Text: Status: Active Freq: Q6H Protocol: Document 01/04/19 14:00 CL (Rec: 01/04/19 14:30 CL [id number]) Wound/Incision Assessment Right Knee Wound Assessment Shift Assessment Wound Type Incision Wound Stage Non Pressure Wound Dressing Status Dry & Intact Drainage Amount None Comment dressing removed on 01/01/[address] Chan's oiffice and sutures removed. 2 clear tegaderms covering incision areas, CDI Wound Photo Photo Taken No Respiratory Exam: normal breath sounds, lungs clear, No crackles/rales, No rhonchi, No wheezing Cardiovascular Exam: regular rate/rhythm, normal heart sounds, No murmur, No friction rub, No gallop Gastrointestinal/Abdomen Exam: soft, normal bowel sounds, No tenderness, No distention, No mass Extremity Exam: other (healing scars on right knee) OBJECTIVE DATA Vital Signs: Vital Signs - 24 hr Temp Pulse Resp BP Pulse Ox 01/04/19 07:47 98.1 F 80 17 136/63 98 01/04/19 05:30 74 18 94 L 01/03/19 20:52 78 18 95 01/03/19 20:00 97.8 F 75 18 121/53 95 Oxygen-Last 24 hours O2 Percentage 2 Liters = 28% O2 Percentage 2 Liters = 28% Pain Assessment - Last Documented Pain Intensity 6 Pain Scale Used 0-10 Pain Scale Intake and Output: Intake & Output 01/02/19 01/03/19 01/04/19 01/05/19 06:59 06:59 06:59 06:59 Intake Total 600 590 480 Output Total 950 1525 825 Balance -350 -935 -345 Weight 100 kg Lab Results: Accuchecks Date 01/04/19 Date 01/04/19 Date 01/03/19 Time 11:30 Time 07:30 Time 22:00 Accucheck Value: 210 Accucheck Value: 79 Accucheck Value: 92 Accucheck Value: 114 Assessment/Plan (1) Septic joint of right knee joint Current Visit: No Status: Acute Assessment & Plan: On ceftriaxone. Will get dose tomorrow AM and then plans to go home and finish as outpatient in our infusion center. Following up with specialists. Code(s): M00.9 - PYOGENIC ARTHRITIS, UNSPECIFIED (2) terminal carman current use of anticoagulant Current Visit: No Status: Acute Assessment & Plan: Will check INR today as last INR was checked 12 days ago. Code(s): Z79.01 - INDEPENDENT DRIVER (CURRENT) USE OF ANTICOAGULANTS (3) Nocturnal hypoxia Current Visit: Yes Status: Acute Assessment & Plan: Patient reports he has oxygen he can wear at night. Code(s): G47.34 - IDIO SLEEP RELATED NONOBSTRUCTIVE ALVEOLAR HYPOVENTILATION (4) Diabetes type 2, controlled Current Visit: No Status: Acute Qualifiers: Diabetes mellitus intermediate project manager insulin use: without halfway use Assessment & Plan: Well controlled. Code(s): E11.9 - TYPE 2 DIABETES MELLITUS WITHOUT COMPLICATIONS
[2019-01-04 16:45] LABS: INR 3.93 (0.8-3.0); PROTIME 46.4 SECONDS (8.83-12.87)
[2019-01-04] MEDS: Coumadin 3 MG PO SCH ×2 (17:21)
[2019-01-04] MEDS: Flomax 0.4 MG PO SCH (21:50)
[2019-01-04] MEDS: xanAX 0.25 MG PO SCH (21:51)
[2019-01-04] MEDS: Requip 0.5 MG PO SCH (21:51)
[2019-01-04] MEDS: Zocor 10MG PO SCH (21:52)
[2019-01-05 07:13] VITALS: BP 109/54; PULSE 76; O2SAT 97
[2019-01-05] MEDS: Glucophage 500 MG PO SCH (07:36)
[2019-01-05] MEDS: D5W IV SCH (07:36)
[2019-01-05] MEDS: ROCEPHIN IV SCH (07:36)
[2019-01-05] MEDS: Neurontin 400 MG PO SCH (09:02)
[2019-01-05] MEDS: NORCO 5/325 MG PO PRN (09:02)
== END 2019-01-05 09:05 | disposition home or self-care (01) | DRG 549 ==
LOC: MED SURG 16:39
PROVIDERS: ADMIT Family Medicine; ATTEND Family Medicine
DX: M00.9 Pyogenic arthritis, unspecified (principal); I42.0 Dilated cardiomyopathy; E11.9 Type 2 diabetes mellitus without complications; I10 Essential (primary) hypertension; R53.1 Weakness; G47.34 Idiopathic sleep related nonobstructive alveolar hypoventilation; Z86.73 Personal history of transient ischemic attack (TIA), and cerebral infarction without residual deficits; Z79.01 Long term (current) use of anticoagulants; Z79.899 Other long term (current) drug therapy
CPT/HCPCS: 36415; 80048; 80053; 82962; 83880; 84443; 85027; 85610; 94760; A6457; J0696; J1642; 97110-GP; A9270-GY

== ENCOUNTER 2019-12-31 09:11 | Inpatient (IN) | payer MEDICARE ==
--- NOTE | 2019-12-31 09:22 | ERPHSYRPT ---
- History of Present Illness Time Seen by Provider: 12/31/19 09:21 Source: patient Exam Limitations: no limitations Physician History: This is an obese 79-year-old diabetic white male with a history of congestive heart failure, cardiomyopathy, diabetic neuropathy, CVA, aortic valve disease who is anticoagulated on Coumadin and presents with hemoptysis that occurred this morning after his typical coughing spells. Patient states he is chronically short of breath. He denies any chest pain. He is not having abdominal pain. Patient has some renal insufficiency issues and his automatic data processing planner is Dr. Wallace. His primary care physician is Dr. Granda and his meat lugger is Dr. Russell. He has a pacemaker/defibrillator in place. The medical issue that brought him into the emergency department is the hemoptysis. Patient uses home oxygen therapy via nasal cannula only as needed. Timing/Duration: today Cough Quality/Degree: moderate, productive cough, blood streaked sputum Possible Cause: occasional episodes Modifying Factors: Improves With: coughing Associated Symptoms: cough, shortness of breath (Chronic no different than usual ), No fever, No chills, No chest pain/soreness, No dizziness Allergies/Adverse Reactions: ether Allergy (Verified 12/31/19 09:24) BEE STING Allergy (Mild, Uncoded 12/31/19 09:24) Home Medications: Alprazolam 0.25 mg [xanAX 0.25 MG] 0.25 mg PO BID 12/18/18 [History] Bumetanide [Bumex] 2 mg PO BID 12/18/18 [History] Carvedilol [Coreg] 9.375 mg PO DAILY 12/18/18 [History] Gabapentin 800 mg PO TID 12/18/18 [History] Glimepiride [Amaryl] 4 mg PO DAILY 12/18/18 [History] Metformin HCl [Fortamet] 1,000 mg PO BID 12/18/18 [History] Nitroglycerin 0.4 mg Tablet [Nitrostat 0.4 MG Tablet] 0.4 mg SL Q5MIN PRN MR X 3 PRN 12/18/18 [History] Ropinirole HCl [Requip] 1 mg PO HS 12/18/18 [History] Sacubitril/Valsartan [Entresto 24 mg-26 mg Tablet] 1 each PO BID 12/18/18 [ History] Simvastatin 5 mg PO DAILY 12/18/18 [History] Tamsulosin HCl 0.4 mg [Flomax 0.4 MG] 0.4 mg PO HS 12/18/18 [History] Allopurinol 100 mg [Zyloprim 100 mg] 2 tab PO DAILY 12/31/19 [History] Cholecalciferol (Vitamin D3) [Vitamin D3] 1 tab PO DAILY 12/31/19 [History] Magnesium Oxide 400 mg [Mag-Ox 400] 1 tab PO DAILY 12/31/19 [History] Metolazone 2.5 mg [Zaroxolyn 2.5 MG] 1 tab PO WEEKLY 12/31/19 [History] Warfarin Sodium 5 mg [Coumadin 5 MG] 1 tab PO DAILY 12/31/19 [History] Hx Tetanus, Diphtheria Vaccination/Date Given: Yes Hx Influenza Vaccination/Date Given: Yes Hx Pneumococcal Vaccination/Date Given: Yes (2015) Travel Risk - International Travel Have you traveled outside of the country in past 3 weeks: No Have you or anyone close to you been diagnosed with or: No Do your reside in a community with a known COVID-19 case?: Yes If Yes where:: [facility] - Coronavirus Screening Has patient experienced Coronavirus symptoms: Yes Symptoms experienced: respiratory symptoms (i.e.Cought,shortness of breath) - Review of Systems Constitutional: No Symptoms Eyes: No Symptoms Ears, Nose, & Throat: No Symptoms Respiratory: Cough, Dyspnea (Chronic) Cardiac: No Symptoms Abdominal/Gastrointestinal: No Symptoms Genitourinary Symptoms: No Symptoms Musculoskeletal: No Symptoms Skin: No Symptoms Neurological: No Symptoms Psychological: No Symptoms Endocrine: No Symptoms Hematologic/Lymphatic: No Symptoms Immunological/Allergic: No Symptoms All Other Systems: Reviewed and Negative - Past Medical History Pertinent Past Medical History: Yes Neurological History: Stroke ENT History: No Pertinent History Cardiac History: Coronary Artery Disease, Hypertension Respiratory History: CHF, Pneumonia Endocrine Medical History: Diabetes Type II Musculoskeletal History: Osteoarthritis GI Medical History: No Pertinent History History: No Pertinent History Psycho-Social History: No Pertinent History Male Reproductive Disorders: No Pertinent History Other Medical History: CARDIOMYOPATHY - PACEMAKER/DEFIBRILATOR - Past Surgical History Past Surgical History: Yes (11/2018) Neuro Surgical History: No Pertinent History Cardiac: Internal Defibrillator, Pacemaker Respiratory: No Pertinent History Gastrointestinal: Appendectomy Genitourinary: No Pertinent History Musculoskeletal: No Pertinent History Male Surgical History: No Pertinent History Other Surgical History: 2 knee scopes right. d/t have pacer/defib replaced - Social History Smoking Status: Never smoker How long have you smoked: 30 yrs Exposure to second hand smoke: Yes Drug Use: none Patient Lives Alone: No - Nursing Vital Signs Nursing Vital Signs: Initial Vital Signs Temperature 99.2 F 12/31/19 09:25 Pulse Rate 92 H 12/31/19 09:25 Respiratory Rate 18 12/31/19 09:25 Blood Pressure 131/88 12/31/19 09:25 O2 Sat by Pulse Oximetry 94 L 12/31/19 09:25 Pain Scale Pain Intensity 0 - Physical Exam General Appearance: mild distress, alert, anxiety, obese Eye Exam: PERRL/EOMI, eyes nml inspection Ears, Nose, Throat Exam: normal ENT inspection, moist mucous membranes Neck Exam: normal inspection, non-tender, supple, full range of motion Respiratory Exam: normal breath sounds, lungs clear, airway intact, No chest tenderness, No respiratory distress Cardiovascular Exam: regular rate/rhythm, normal heart sounds, normal peripheral pulses Gastrointestinal/Abdomen Exam: soft, normal bowel sounds, No tenderness, No guarding, No rebound Rectal Exam: not done Back Exam: normal inspection, normal range of motion, No CVA tenderness, No vertebral tenderness Extremity Exam: normal inspection, normal range of motion, pelvis stable Neurologic Exam: alert, oriented x 3, cooperative, brooch and bracelet maker II-XII nml as tested, nml cerebellar function, nml station & gait Skin Exam: normal color, warm, dry Lymphatic Exam: No adenopathy SpO2 Interpretation: borderline oxygenation O2 Delivery: Room Air - Course Nursing assessment & vital signs reviewed: Yes EKG Interpreted by Me: RATE, Sinus Rhythm, 1st degree AV Block, Right Bundle Branch Block, Other (The EKG from today has a heart rate in the 60s. It is sinus rhythm has an indeterminate axis and is a pacemaker paced EKG. There is evidence of complete right bundle branch block and the QRS is significant prolonged. No acute findings noted. The comparison EKG is dated 11/02/2018.) Ordered Tests: Active Orders 24 hr Category Date Time Status Card Painter STAT Care 12/31/19 09:46 Active EKG-ER Only STAT Care 12/31/19 09:44 Active IV Insertion STAT Care 12/31/19 09:44 Active Isolation, Initiate & Maintain Q4H Care 12/31/19 09:32 Active Pulse Oximetry (ED) STAT Care 12/31/19 09:44 Active CHEST 1 VIEW (PORTABLE) Stat Exams 12/31/19 09:46 Completed BLOOD CULTURE Stat Lab 12/31/19 09:36 Received CBC W DIFF Stat Lab 12/31/19 09:50 Completed CMP Stat Lab 12/31/19 09:50 Completed D-DIMER QUANTITATIVE Stat Lab 12/31/19 09:50 Completed Ferritin Stat Lab 12/31/19 Completed LDH-LACTATE DEHYDROGENASE Stat Lab 12/31/19 Completed MAGNESIUM Stat Lab 12/31/19 09:50 Completed NT PRO BNP Stat Lab 12/31/19 09:50 Completed PROTIME WITH INR Stat Lab 12/31/19 09:50 Completed TROPONIN Q3H Lab 12/31/19 09:50 Completed TROPONIN Q3H Lab 12/31/19 13:00 Ordered TROPONIN Q3H Lab 12/31/19 16:00 Ordered TROPONIN Q3H Lab 12/31/19 19:00 Ordered TROPONIN Q3H Lab 12/31/19 22:00 Ordered Transfer Order Routine Transfer 12/31/19 Ordered Medication Summary Generic Name Dose Route Start Last Admin Trade Name Freq PRN Reason Stop Dose Admin Sodium Chloride 100 mls @ 100 mls/hr 12/31/19 10:58 12/31/19 11:11 Sodium Chloride 0.9% 100 Ml Ivpb IV 12/31/19 11:57 100 mls/hr STAT ONE Administration Discontinued Medications Generic Name Dose Route Start Last Admin Trade Name Freq PRN Reason Stop Dose Admin Bumetanide 1 mg 12/31/19 10:49 12/31/19 11:12 Bumex 1 Mg IV 12/31/19 10:50 1 mg STAT ONE Administration Bumetanide Confirm 12/31/19 11:03 Bumex 1 Mg Administered 12/31/19 11:04 Dose 1 mg .ROUTE .STK-MED ONE Ceftriaxone Sodium/Dextrose 1 g in 50 mls @ 100 mls/hr 12/31/19 10:48 11:10 Rocephin 1 Gm-D5w 50 Ml Bag IV 12/31/19 11:17 100 mls/hr STAT STA 100 mls/hr Administration Sodium Chloride Confirm 12/31/19 11:03 Sodium Chloride 0.9% 100 Ml Ivpb Administered 12/31/19 11:04 Dose 100 mls @ ud IV .STK-MED ONE Ceftriaxone Sodium/Dextrose Confirm 12/31/19 11:03 Rocephin 1 Gm-D5w 50 Ml Bag Administered 12/31/19 11:04 Dose 1 g in 50 mls @ ud IV .STK-MED ONE Lab/Rad Data: Laboratory Result Diagrams 12/31/19 09:50 12/31/19 09:50 Laboratory Results 12/31/19 12/31/19 12/31/19 Range/Units Unknown Unknown 09:50 WBC (4.0-10.5) K/mm3 RBC (4.1-5.6) M/mm3 Hgb (12.5-18.0) gm/dl Hct (42-50) % MCV (78-100) fl MCH (26-32) pg MCHC (32-36) g/dl RDW (11.5-14.0) % Plt Count (150-450) K/mm3 MPV (7.5-11.0) fl Gran % (36.0-66.0) % Eos # (Auto) (0-0.5) Absolute Lymphs (auto) (1.0-4.6) Absolute Monos (auto) (0.0-1.3) Lymphocytes % (24.0-44.0) % Monocytes % (0.0-12.0) % Eosinophils % (0.00-5.0) % Basophils % (0.0-0.4) % Absolute Granulocytes (1.4-6.9) Basophils # (0-0.4) PT (8.83-12.87) SECONDS INR (0.8-3.0) D-Dimer (215-500) ng/mL Sodium (137-145) mmol/L Potassium (3.5-5.1) mmol/L Chloride (98-107) mmol/L Carbon Dioxide (22-30) mmol/L Anion Gap (5-15) MEQ/L BUN (9-20) mg/dL Creatinine (0.66-1.25) mg/dL Estimated GFR ML/MIN Glucose (74-106) mg/dL Calcium (8.4-10.2) mg/dL Magnesium (1.6-2.3) mg/dL Ferritin 68.7 (17.9-464) ng/mL Total Bilirubin (0.2-1.3) mg/dL AST (17-59) U/L ALT (0-50) U/L Alkaline Phosphatase (38-126) U/L Lactate Dehydrogenase 178 (120-246) U/L Troponin I 0.018 (0.000-0.034) ng/mL NT-Pro-B Natriuret Pep (0-1800) pg/mL Serum Total Protein (6.3-8.2) g/dL Albumin (3.5-5.0) g/dL Influenza Type A Ag NEGATIVE (NEGATIVE) Influenza Type B Ag NEGATIVE (NEGATIVE) RSV (PCR) NEGATIVE (Negative) 12/31/19 12/31/19 12/31/19 Range/Units 09:50 09:50 09:50 WBC 15.0 H (4.0-10.5) K/mm3 RBC 4.07 L (4.1-5.6) M/mm3 Hgb 13.5 (12.5-18.0) gm/dl Hct 40.0 L (42-50) % MCV 98.3 (78-100) fl MCH 33.2 H (26-32) pg MCHC 33.8 (32-36) g/dl RDW 14.7 H (11.5-14.0) % Plt Count 127 L (150-450) K/mm3 MPV 9.9 (7.5-11.0) fl Gran % 86.4 H (36.0-66.0) % Eos # (Auto) 0.12 (0-0.5) Absolute Lymphs (auto) 1.00 (1.0-4.6) Absolute Monos (auto) 0.90 (0.0-1.3) Lymphocytes % 6.7 L (24.0-44.0) % Monocytes % 6.0 (0.0-12.0) % Eosinophils % 0.8 (0.00-5.0) % Basophils % 0.1 (0.0-0.4) % Absolute Granulocytes 12.95 H (1.4-6.9) Basophils # 0.02 (0-0.4) PT 28.8 H (8.83-12.87) SECONDS INR 2.50 (0.8-3.0) D-Dimer < 215 L (215-500) ng/mL Sodium 137 (137-145) mmol/L Potassium 4.8 (3.5-5.1) mmol/L Chloride 102 (98-107) mmol/L Carbon Dioxide 24 (22-30) mmol/L Anion Gap 16.2 H (5-15) MEQ/L BUN 25 H (9-20) mg/dL Creatinine 1.03 (0.66-1.25) mg/dL Estimated GFR > 60.0 ML/MIN Glucose 221 H (74-106) mg/dL Calcium 9.0 (8.4-10.2) mg/dL Magnesium 1.4 L (1.6-2.3) mg/dL Ferritin (17.9-464) ng/mL Total Bilirubin 1.30 (0.2-1.3) mg/dL AST 30 (17-59) U/L ALT 20 (0-50) U/L Alkaline Phosphatase 64 (38-126) U/L Lactate Dehydrogenase (120-246) U/L Troponin I (0.000-0.034) ng/mL NT-Pro-B Natriuret Pep 3030 H (0-1800) pg/mL Serum Total Protein 7.1 (6.3-8.2) g/dL Albumin 3.9 (3.5-5.0) g/dL Influenza Type A Ag (NEGATIVE) Influenza Type B Ag (NEGATIVE) RSV (PCR) (Negative) - Progress Progress: improved Air Movement: good Progress Note: 12/31/19 10:51 cxr-new large focus of right lung airspace dz 12/31/19 11:[address] jhonathan guzman for admission. i reviewed pt hx, condition, lab, ekg and cxr results. he accepts pt for admission. 12/31/19 11:14 medical decision making: pt has at least a pneumonia. he is soa, coughing, and has a low grade fever. he is elderly. he fits the clinical picture of a possible positive covid 19 pt. will admit to covid 19 unit, place on iv antibiotics, oxygen, diuretics and await covid test results. This was discussed with Dr. Guzman 12/31/19 11:19 Blood Culture(s) Obtained: Yes Antibiotics given: Yes Discussed with Dr.: Other (Dr. Jhonathan Guzman) Counseled pt/family regarding: lab results, diagnosis, need for follow-up, rad results - Departure Departure Disposition: In-patient Admission Clinical Impression: Pneumonia, Congestive heart failure, Hemoptysis, Hypoxia Condition: Fair Critical Care Time: Yes Critical Care Time(excluding separately billable procedures): Critical 30-74 mins Referrals: EVE GRANDA MD [Primary Care Provider] - Instructions: Heart Failure
[2019-12-31 09:52] LABS: Absolute Neutrophil Ct (ANC) 12.95 (1.4-6.9); BASOPHIL % 0.1 % (0.0-0.4); Basophil (Absolute #) 0.02 (0-0.4); Eosinophil % 0.8 % (0.00-5.0); Eosinophil (Absolute #) 0.12 (0-0.5); Hemoglobin 13.5 gm/dl (12.5-18.0); Lymphocytes % 6.7 % (24.0-44.0); Mean Cell Volume 98.3 fl (78-100); Mean Corpuscular Hemoglobin 33.2 pg (26-32); Mean Corpuscular Hgb Concent. 33.8 g/dl (32-36); Mean Platelet Volume 9.9 fl (7.5-11.0); Neutrophil % 86.4 % (36.0-66.0); Platelet Count 127 K/mm3 (150-450); Red Blood Count 4.07 M/mm3 (4.1-5.6); Red Cell Distribution Width 14.7 % (11.5-14.0)
[2019-12-31 09:59] LABS: PROTIME 28.8 SECONDS (8.83-12.87)
[2019-12-31 10:13] LABS: ALBUMIN 3.9 g/dL (3.5-5.0); ALKALINE PHOSPHATASE 64 U/L (38-126); ANION GAP 16.2 MEQ/L (5-15); BLOOD UREA NITROGEN 25 mg/dL (9-20); CHLORIDE 102 mmol/L (98-107); Carbon Dioxide 24 mmol/L (22-30); Creatinine 1 1.03 mg/dL (0.66-1.25); Glucose 221 mg/dL (74-106); MAGNESIUM 1.4 mg/dL (1.6-2.3); NT PRO BNP 3030 pg/mL (0-1800); Potassium 4.8 mmol/L (3.5-5.1); SGOT/AST 30 U/L (17-59); SGPT/ALT 20 U/L (0-50); SODIUM 137 mmol/L (137-145); Total Protein 7.1 g/dL (6.3-8.2)
[2019-12-31 10:20] LABS: D-DIMER QUANTITATIVE < 215 ng/mL (215-500)
--- NOTE | 2019-12-31 10:34 | XRAY ---
Indication: Hemoptysis. Comparison: November 02, 2018. Portable chest demonstrates new large focus right lung airspace disease without large effusion. Remaining heart and left lung unremarkable with stable left AICD. Bony thorax intact.
[2019-12-31 10:44] LABS: INFLUENZA A NEGATIVE (NEGATIVE); INFLUENZA B NEGATIVE (NEGATIVE); RESPIRATORY SYNCTIAL VIRUS NEGATIVE (Negative)
[2019-12-31] MEDS ORDERED: ROCEPHIN 1 Gm-D5w 50 ml Bag** 1 G/50 ML IVPB IV STA (10:48)
[2019-12-31] MEDS ORDERED: BUMEX 1 MG IV ONE (10:49)
[2019-12-31] MEDS ORDERED: Sodium Chloride 0.9% 100 ML IVPB 100 ML IV ONE ×2 (10:58→11:03)
[2019-12-31 11:01] LABS: Ferritin 68.7 ng/mL (17.9-464)
[2019-12-31] MEDS ORDERED: BUMEX 1 MG ONE (11:03)
[2019-12-31] MEDS ORDERED: ROCEPHIN 1 Gm-D5w 50 ml Bag** 1 G/50 ML IVPB IV ONE (11:03)
[2019-12-31] MEDS ORDERED: VENTOLIN COMMON CANISTER IH PRN (11:42)
[2019-12-31] MEDS ORDERED: Zofran 4 MG/2 ML VIAL IV PRN (11:42)
[2019-12-31] MEDS: PROTONIX 40 MG IV IV SCH (13:38)
[2019-12-31] MEDS: Zithromax 500 MG/ 250 ML NaCl Premix 500 MG/250 ML IVPB IV SCH (13:38)
[2019-12-31] MEDS: TYLENOL 325 MG PO PRN (13:39)
[2019-12-31] MEDS: Sodium Chloride 0.9% 1000 ML 1,000 ML IV SCH (13:41)
[2019-12-31] MEDS ORDERED: Nitrostat 0.4 MG Tablet SL PRN (16:45)
[2019-12-31] MEDS ORDERED: Zaroxolyn 2.5 MG PO PRN (16:45)
[2019-12-31] MEDS: HUMULIN R SQ PRN ×2 (16:50→21:19)
[2019-12-31] MEDS ORDERED: BUMEX 1 MG PO SCH (17:00)
[2019-12-31] MEDS: Neurontin 400 MG PO SCH ×2 (17:49→21:13)
[2019-12-31] MEDS: Glucophage 500 MG PO SCH (17:49)
[2019-12-31] MEDS: BUMEX 1 MG PO SCH (17:50)
[2019-12-31] MEDS ORDERED: Coumadin 5 MG PO SCH (18:00)
[2019-12-31] MEDS: Coreg 3.125 MG PO SCH (21:11)
[2019-12-31] MEDS: ENTRESTO 49 MG-51 MG TABLET PO SCH (21:12)
[2019-12-31] MEDS: Requip 0.5 MG PO SCH (21:13)
[2019-12-31] MEDS: Flomax 0.4 MG PO SCH (21:13)
[2019-12-31] MEDS: xanAX 0.25 MG PO SCH (21:13)
[2019-12-31] MEDS ORDERED: NON-FORMULARY ITEM (Ropinirole Hcl [Requip] 1 MG) PO SCH (22:00)
[2019-12-31] MEDS ORDERED: NON-FORMULARY ITEM (Bumetanide [Bumex] 2 MG) PO SCH (22:00)
[2019-12-31] MEDS ORDERED: NON-FORMULARY ITEM (Gabapentin [Gabapentin] 800 MG) PO SCH (22:00)
[2019-12-31] MEDS ORDERED: NON-FORMULARY ITEM (Sacubitril/Valsartan [Entresto 24 Mg-26 Mg Tablet] 1 EACH) PO SCH (22:00)
[2019-12-31] MEDS ORDERED: METFORMIN HCL 1000 MG PO SCH (22:00)
[2020-01-01 05:21] LABS: BASOPHIL % 0.1 % (0.0-0.4); Basophil (Absolute #) 0.01 (0-0.4); Eosinophil % 1.9 % (0.00-5.0); Hematocrit 37.9 % (42-50); Hemoglobin 12.4 gm/dl (12.5-18.0); Lymphocyte (Absolute #) 1.67 (1.0-4.6); Lymphocytes % 15.8 % (24.0-44.0); Mean Cell Volume 100.3 fl (78-100); Mean Corpuscular Hemoglobin 32.8 pg (26-32); Mean Corpuscular Hgb Concent. 32.7 g/dl (32-36); Mean Platelet Volume 10.3 fl (7.5-11.0); Monocytes % 7.6 % (0.0-12.0); Neutrophil % 74.6 % (36.0-66.0); Platelet Count 113 K/mm3 (150-450); Red Blood Count 3.78 M/mm3 (4.1-5.6); Red Cell Distribution Width 14.9 % (11.5-14.0); White Blood Count 10.6 K/mm3 (4.0-10.5)
[2020-01-01 05:33] LABS: INR 2.29 (0.8-3.0); PROTIME 26.3 SECONDS (8.83-12.87)
[2020-01-01 05:46] LABS: ALBUMIN 3.5 g/dL (3.5-5.0); ALKALINE PHOSPHATASE 51 U/L (38-126); ANION GAP 10.8 MEQ/L (5-15); BLOOD UREA NITROGEN 29 mg/dL (9-20); CHLORIDE 101 mmol/L (98-107); Calcium 8.7 mg/dL (8.4-10.2); Carbon Dioxide 31 mmol/L (22-30); Creatinine 1 1.22 mg/dL (0.66-1.25); Glucose 122 mg/dL (74-106); NT PRO BNP 4390 pg/mL (0-1800); Potassium 4.5 mmol/L (3.5-5.1); SGOT/AST 21 U/L (17-59); SGPT/ALT 15 U/L (0-50); SODIUM 139 mmol/L (137-145); Total Protein 6.6 g/dL (6.3-8.2)
[2020-01-01] MEDS: AMARYL 4 MG PO SCH (08:12)
[2020-01-01] MEDS: Glucophage 500 MG PO SCH ×2 (08:12→17:19)
[2020-01-01] MEDS ORDERED: NON-FORMULARY ITEM (Simvastatin [Simvastatin] 5 MG) PO SCH (10:00)
[2020-01-01] MEDS ORDERED: Coreg 3.125 MG PO SCH (10:00)
[2020-01-01] MEDS: PROTONIX 40 MG IV IV SCH (11:10)
[2020-01-01] MEDS: BUMEX 1 MG PO SCH ×2 (11:10→17:19)
[2020-01-01] MEDS: xanAX 0.25 MG PO SCH ×2 (11:10→22:05)
[2020-01-01] MEDS: Zocor 10MG PO SCH (11:11)
[2020-01-01] MEDS: Coreg 3.125 MG PO SCH ×2 (11:12→22:03)
[2020-01-01] MEDS: MAG-OX 400 PO SCH (11:12)
[2020-01-01] MEDS: VITAMIN D PO SCH (11:12)
[2020-01-01] MEDS: ENTRESTO 49 MG-51 MG TABLET PO SCH ×2 (11:12→22:03)
[2020-01-01] MEDS: ZYLOPRIM 100 MG PO SCH (11:12)
[2020-01-01] MEDS: ROCEPHIN 1 Gm-D5w 50 ml Bag** 1 G/50 ML IVPB IV SCH (11:14)
[2020-01-01] MEDS: Neurontin 400 MG PO SCH ×3 (11:14→22:05)
[2020-01-01] MEDS: Zithromax 500 MG/ 250 ML NaCl Premix 500 MG/250 ML IVPB IV SCH (11:43)
[2020-01-01] MEDS: HUMULIN R SQ PRN ×3 (12:15→22:05)
[2020-01-01] MEDS: Coumadin 1 MG PO SCH (17:22)
[2020-01-01] MEDS ORDERED: Coumadin 2 MG PO SCH (18:00)
[2020-01-01] MEDS: Flomax 0.4 MG PO SCH (22:04)
[2020-01-01] MEDS: Requip 0.5 MG PO SCH (22:05)
[2020-01-02] MEDS ORDERED: Sodium Chloride 0.9% 500 ML 500 ML IV ONE (00:08)
[2020-01-02] MEDS: Sodium Chloride 0.9% 1000 ML 1,000 ML IV SCH (00:21)
[2020-01-02 05:08] LABS: INR 2.02 (0.8-3.0); PROTIME 23.2 SECONDS (8.83-12.87)
[2020-01-02] MEDS: AMARYL 4 MG PO SCH (08:18)
[2020-01-02] MEDS: Glucophage 500 MG PO SCH ×2 (08:18→17:21)
[2020-01-02] MEDS: ROCEPHIN 1 Gm-D5w 50 ml Bag** 1 G/50 ML IVPB IV SCH (09:54)
[2020-01-02] MEDS: PROTONIX 40 MG IV IV SCH (09:54)
[2020-01-02] MEDS: ENTRESTO 49 MG-51 MG TABLET PO SCH ×2 (09:56→21:30)
[2020-01-02] MEDS: MAG-OX 400 PO SCH (09:58)
[2020-01-02] MEDS: BUMEX 1 MG PO SCH ×2 (09:58→17:07)
[2020-01-02] MEDS: xanAX 0.25 MG PO SCH ×2 (09:58→21:32)
[2020-01-02] MEDS: Neurontin 400 MG PO SCH ×3 (09:58→21:31)
[2020-01-02] MEDS: Zocor 10MG PO SCH (09:58)
[2020-01-02] MEDS: ZYLOPRIM 100 MG PO SCH (09:59)
[2020-01-02] MEDS: Coreg 3.125 MG PO SCH ×2 (09:59→21:30)
[2020-01-02] MEDS: VITAMIN D PO SCH (09:59)
[2020-01-02] MEDS: Zithromax 500 MG/ 250 ML NaCl Premix 500 MG/250 ML IVPB IV SCH (11:16)
[2020-01-02] MEDS: HUMULIN R SQ PRN ×2 (17:20→21:33)
[2020-01-02] MEDS: Coumadin 1 MG PO SCH (17:20)
[2020-01-02] MEDS: Flomax 0.4 MG PO SCH (21:31)
[2020-01-02] MEDS: Requip 0.5 MG PO SCH (21:32)
[2020-01-03 06:23] LABS: INR 2.08 (0.8-3.0); PROTIME 23.8 SECONDS (8.83-12.87)
[2020-01-03] MEDS: AMARYL 4 MG PO SCH (07:56)
[2020-01-03] MEDS: Glucophage 500 MG PO SCH ×2 (07:56→16:17)
[2020-01-03] MEDS: HUMULIN R SQ PRN ×3 (07:57→18:34)
[2020-01-03] MEDS: Coreg 3.125 MG PO SCH ×2 (09:30→22:22)
[2020-01-03] MEDS: ROCEPHIN 1 Gm-D5w 50 ml Bag** 1 G/50 ML IVPB IV SCH (09:30)
[2020-01-03] MEDS: Neurontin 400 MG PO SCH ×3 (09:30→22:22)
[2020-01-03] MEDS: VITAMIN D PO SCH (09:30)
[2020-01-03] MEDS: Zocor 10MG PO SCH (09:31)
[2020-01-03] MEDS: MAG-OX 400 PO SCH (09:31)
[2020-01-03] MEDS: ZYLOPRIM 100 MG PO SCH (09:31)
[2020-01-03] MEDS: ENTRESTO 49 MG-51 MG TABLET PO SCH ×2 (09:31→22:24)
[2020-01-03] MEDS: BUMEX 1 MG PO SCH ×2 (09:31→16:16)
[2020-01-03] MEDS: xanAX 0.25 MG PO SCH ×2 (09:32→22:24)
[2020-01-03] MEDS: Zithromax 500 MG/ 250 ML NaCl Premix 500 MG/250 ML IVPB IV SCH (09:32)
[2020-01-03] MEDS: PROTONIX 40 MG IV IV SCH (09:32)
[2020-01-03 10:08] LABS: ALBUMIN 3.5 g/dL (3.5-5.0); ALKALINE PHOSPHATASE 58 U/L (38-126); ANION GAP 14.4 MEQ/L (5-15); BLOOD UREA NITROGEN 35 mg/dL (9-20); CHLORIDE 99 mmol/L (98-107); Calcium 8.7 mg/dL (8.4-10.2); Carbon Dioxide 30 mmol/L (22-30); Creatinine 1 1.11 mg/dL (0.66-1.25); Glucose 180 mg/dL (74-106); Potassium 3.9 mmol/L (3.5-5.1); SGOT/AST 20 U/L (17-59); SGPT/ALT 15 U/L (0-50); SODIUM 139 mmol/L (137-145); Total Protein 6.6 g/dL (6.3-8.2)
[2020-01-03 10:32] LABS: Absolute Neutrophil Ct (ANC) 6.81 (1.4-6.9); BASOPHIL % 0.2 % (0.0-0.4); Basophil (Absolute #) 0.02 (0-0.4); Eosinophil % 3.6 % (0.00-5.0); Eosinophil (Absolute #) 0.31 (0-0.5); Hematocrit 37.1 % (42-50); Hemoglobin 12.3 gm/dl (12.5-18.0); Lymphocyte (Absolute #) 1.07 (1.0-4.6); Lymphocytes % 12.3 % (24.0-44.0); Mean Cell Volume 99.7 fl (78-100); Mean Corpuscular Hemoglobin 33.1 pg (26-32); Mean Corpuscular Hgb Concent. 33.2 g/dl (32-36); Mean Platelet Volume 10.3 fl (7.5-11.0); Monocyte (Absolute #) 0.52 (0.0-1.3); Neutrophil % 77.9 % (36.0-66.0); Platelet Count 124 K/mm3 (150-450); Red Blood Count 3.72 M/mm3 (4.1-5.6); Red Cell Distribution Width 14.5 % (11.5-14.0); White Blood Count 8.7 K/mm3 (4.0-10.5)
[2020-01-03] MEDS: Coumadin 1 MG PO SCH (18:33)
--- NOTE | 2020-01-03 20:30 | XRAY ---
Indication: Short of breath. Comparison: December 31, 2019. PA/lateral chest demonstrates mild clearing of previous right lung airspace disease with mild residual. Remaining heart and left lung unremarkable with stable left AICD. No new/acute findings. Comment: Preliminary interpretation was made by [facility]. No critical discrepancy.
[2020-01-03] MEDS: Flomax 0.4 MG PO SCH (22:24)
[2020-01-03] MEDS: Requip 0.5 MG PO SCH (22:24)
[2020-01-04 06:04] LABS: INR 2.19 (0.8-3.0); PROTIME 25.2 SECONDS (8.83-12.87)
[2020-01-04] MEDS: Glucophage 500 MG PO SCH (08:24)
[2020-01-04] MEDS: Zithromax 500 MG/ 250 ML NaCl Premix 500 MG/250 ML IVPB IV SCH (08:24)
[2020-01-04] MEDS: AMARYL 4 MG PO SCH (08:24)
[2020-01-04] MEDS: PROTONIX 40 MG IV IV SCH (09:32)
[2020-01-04] MEDS: BUMEX 1 MG PO SCH (09:34)
[2020-01-04] MEDS: TYLENOL 325 MG PO PRN (09:34)
[2020-01-04] MEDS: Zocor 10MG PO SCH (09:35)
[2020-01-04] MEDS: Neurontin 400 MG PO SCH (09:35)
[2020-01-04] MEDS: ENTRESTO 49 MG-51 MG TABLET PO SCH (09:35)
[2020-01-04] MEDS: Coreg 3.125 MG PO SCH (09:35)
[2020-01-04] MEDS: MAG-OX 400 PO SCH (09:35)
[2020-01-04] MEDS: VITAMIN D PO SCH (09:36)
[2020-01-04] MEDS: xanAX 0.25 MG PO SCH (09:36)
[2020-01-04] MEDS: ROCEPHIN 1 Gm-D5w 50 ml Bag** 1 G/50 ML IVPB IV SCH (09:36)
[2020-01-04] MEDS: ZYLOPRIM 100 MG PO SCH (09:36)
[2020-01-04 11:58] VITALS: BP 100/57; PULSE 69
[2020-01-04 13:29] VITALS: O2SAT 98
--- NOTE | 2020-01-05 13:15 | DS ---
DISCHARGE DIAGNOSES: 1) PNEUMONIA AND HYPOXIA. 2) DIABETES MELLITUS TYPE 2. 3) CORONARY ARTERY DISEASE. HOSPITAL COURSE: The patient is a 79 year-old white male patient who had history as noted above, began having problems with hemoptysis. He was seen in the emergency room and admitted to the hospital in the COVID Unit. He was treated with Rocephin and Zithromax. The initial hemoptysis cleared up and it was felt to be secondary to pneumonia this was seen on chest x-ray. His international normalized ratios have remained therapeutic and on 01/04/2020, it was 2.19. His most recent chest x-ray showed improvement in the pneumonia. He was able to be up and ambulating in the hallway showing a need of only 2 liters per nasal cannula with ambulation. The patient was felt to be now ready for discharge home again. We will discharge him home on Augmentin 875 mg twice a day and continue his usual home medications as listed in the H&P. He will have follow up in the office in one week. He is to call for any problems in the interim. Return to the hospital if he has any problems with increasing shortness of breath.
--- NOTE | 2020-01-06 12:09 | HP ---
ADMISSION DIAGNOSES: 1) Lobar pneumonia possible coronavirus infection. 2) Coronary artery disease. DISCHARGE DIAGNOSES: 1) LOBAR PNEUMONIA COMMUNITY ACQUIRED. 2) GRAM POSITIVE BLOOD CULTURES. 3) CHRONIC OBSTRUCTIVE PULMONARY DISEASE. 4) CORONARY ARTERY DISEASE. 5) OSTEOARTHRITIS. HISTORY: The patient started coughing the day before admission. He had coughed up some blood this morning early and went to the emergency room. He has not smoked in numerous years. He is anticoagulated due to atrial fibrillation. He has had several heart attacks. He has got a pacemaker defibrillator. He felt hot. No GI symptoms. He sees Dr. Russell, Poultry [employer]. PAST MEDICAL HISTORY: No recent heart attacks. He last saw Dr. Russell in cardiology, three months ago, has an appointment to see him he things. SOCIAL HISTORY: , numerous adult children, grandchildren. He had been very socially active until the disease had slowed him down. He is retired from the power plant. PHYSICAL EXAMINATION: HEENT: A little bit hard of hearing, sees okay. CHEST: Short of breath at rest. CVS: Frequent cough slightly productive. No more hemoptysis since this morning. ABDOMEN: No softness or masses. EXTREMITIES: No edema. Degenerative changes of the knees. BACK: Tenderness to low back. SKIN: Color is good. IMPRESSION: On x-ray the patient has a lobar pneumonia. White count is elevated to 15,000. HOSPITAL COURSE: The patient was treated with Rocephin and Zithromax. In 24 hours, he improved tremendously. His blood cultures grew gram positive cocci. His temperature went down and stayed down within 12 hours. His white count was down to 10,000 from 15,000. He felt very well. He was discharged to the regular floor since he was COVID normal, to follow up with his usual family practitioner, Dr. Wright, and will put him on some p.o. antibiotics possibly O2.
== END 2020-01-04 13:30 | disposition home health service (06) | DRG 194 ==
LOC: ED 09:11 → MED SURG 11:40
PROVIDERS: ADMIT Family Medicine; ATTEND Family Medicine
DX: J18.9 Pneumonia, unspecified organism (principal); R04.2 Hemoptysis; R09.02 Hypoxemia; E11.9 Type 2 diabetes mellitus without complications; I10 Essential (primary) hypertension; J44.9 Chronic obstructive pulmonary disease, unspecified; I25.10 Atherosclerotic heart disease of native coronary artery without angina pectoris; Z79.01 Long term (current) use of anticoagulants; Z86.73 Personal history of transient ischemic attack (TIA), and cerebral infarction without residual deficits; Z95.0 Presence of cardiac pacemaker; Z79.899 Other long term (current) drug therapy
CPT/HCPCS: 36415; 71046; 80053; 82728; 82962; 83036; 83615; 83735; 83880; 84484; 85025; 85379; 85610; 87040; 87086; 87631; 93005; 93041; 94762; 96365; 96374; 99291; U0003; 36000; 71045; 94760; 99285; J0456; J0696; J1815; A9270-GY